=== PATIENT | male | born 1930 | race African-American/Black ===

== ENCOUNTER 2016-07-29 17:37 | Observation (INO) ==
[2016-07-29] MEDS ORDERED: Ondansetron 4 MG/2 ML VIAL IM ONE (17:52)
--- NOTE | 2016-07-29 18:03 | Emergency Department Note ---
Disposition Clinical Impression: Dehydration, Tachycardia, SIRS (systemic inflammatory response syndrome) Cholelithiasis Qualifiers: Cholelithiasis location: gallbladder Cholecystitis presence: with cholecystitis Cholecystitis acuity: acute Biliary obstruction: without biliary obstruction Qualified Code(s): K80.00 - Calculus of gallbladder with acute cholecystitis without obstruction Disposition: Admitted As Inpatient Condition: Good Referrals: NO,PCP [Non-Partnered Physician] - Forms: ED Satisfaction Letter Time of Disposition: 20:41 General Adult HPI - General Chief complaint: ED Nausea/Vomiting/Diarrhea Stated complaint: N/V Time Seen by Provider: 07/29/16 17:45 Source: patient, family Mode of arrival: EMS Limitations: no limitations Nursing Notes Reviewed: Yes Vital Signs Reviewed: Yes (99.7T P>130) - History of Present Illness HPI Narrative: 85 yo M presents with c/o nausea and vomiting. PMHx prostate cancer getting lupron injections every 3 months last injection was a few weeks ago, HTN, DM. Pt states that this morning he woke up with some heart burn sensation in his throat/chest area which lasted a few minutes and subsided. He had no other symptoms the rest of the day until about one-two hours ago. After easter dinner pt had a few minutes of cramping abdominal pain, got very nauseated and started vomiting. States he has been nauseated and vomiting nonstop since that time, nonbloody and nonbilious. CUrrently not having any abdominal pain but is very nauseous and actively vomiting. Pt denies change in stool or urinary habits, denies current Cp, sob, numbness/tingling. Pt Subjective Complaint: nausea and vomiting Onset (ago): hour(s) Location: abdomen Radiation: non-radiation Pain Severity: mild Pain Scale: 3 Quality: aching Consistency: now resolved Improves with: nothing Worsens with: nothing Associated symptoms: Reports: nausea/vomiting Treatments Prior to Arrival: none - Related Data Home Medications Medication Instructions Recorded Confirmed Aspirin 325 mg PO DAILY 11/25/14 05/31/16 Glimepiride [Amaryl] 4 mg PO BID 11/25/14 05/31/16 Irbesartan [Avapro] 300 mg PO DAILY 11/25/14 05/31/16 Metformin [Glucophage] 1,000 mg PO BID 11/25/14 05/31/16 Multivitamin [Multivitamins] 1 each PO DAILY 11/25/14 05/31/16 Omeprazole [PriLOSEC] 20 mg PO DAILY 11/25/14 05/31/16 Pioglitazone HCl [Actos] 45 mg PO DAILY 11/25/14 05/31/16 Vitamin E 400 unit PO DAILY 11/25/14 05/31/16 Verapamil ER (24 HR) [Calan SR] 240 mg PO DAILY 03/01/15 05/31/16 Tamsulosin [Flomax] 0.4 mg PO DAILY 02/29/16 05/31/16 Previous Rx's Medication Instructions Recorded Calcium/D3/Mag Ox/Explosive Ordnance Manager/Bhaskar/Zn 2 each PO DAILY #60 tablet 03/01/15 [Caltrate+D3 Plus Mineral Minis] Dutasteride [Avodart] 0.5 mg PO DAILY #30 capsule 03/29/16 HYDROcodone/Acet 5/325 mg [[place] 1 tab PO Q6H PRN #90 tab 05/31/16 5-325 mg] Allergies Allergy/AdvReac Type Severity Reaction Status Date / Time No Known Allergies Allergy Verified 11/25/14 11:20 All systems ED: reviewed and negative except as stated. Constitutional: Denies: fever, chills, weakness, weight change Eyes: Denies: eye pain, eye discharge, vision change ENT ED: Denies: ear pain, throat pain, dental pain, hearing loss, epistaxis, congestion, dysphagia Cardiovascular: Denies: chest pain, palpitations, dyspnea on exertion, edema, syncope Respiratory: Denies: cough, dyspnea, wheezes, hemoptysis, stridor Gastrointestinal: Reports: abdominal pain, nausea, vomiting. Denies: diarrhea, constipation, hematemesis, melena, hematochezia Genitourinary: Denies: urgency, dysuria, frequency, hematuria Musculoskeletal: Denies: back pain, neck pain, arthralgia, myalgia Integumentary: Denies: rash, abrasion, lesions Neurological: Denies: headache, weakness, numbness, paresthesias, confusion, abnormal gait, vertigo Psychiatric: Denies: anxiety, depression, suicidal thoughts, homicidal thoughts , auditory hallucinations, visual hallucinations Past Medical History - Past Medical History Attestation: Yes The following information was validated with the patient. Source: patient Medical history: Reports: arthritis, cancer (prostate), diabetes, hypertension, renal disease Surgical history: Reports: cancer surgery Psychiatric history: Reports: no psych history - Social History Smoking Status: Never smoker Smokeless Tobacco Status: No Alcohol use: Reports: none Drug use: Reports: none Physical Exam - General Limitations: no limitations General appearance: alert, in no apparent distress - Head Head exam: atraumatic, normocephalic, normal inspection - Eye Eye exam: Present: normal appearance, PERRL, EOMI - ENT ENT exam: normal exam, normal oropharynx, mucous membranes moist - Neck Neck exam: Present: normal inspection, full ROM, trachea midline - Chest Chest inspection: Present: normal inspection, symmetric chest wall rise - Respiratory Respiratory exam: Present: normal lung sounds bilaterally - Cardiovascular Cardiovascular exam: Present: regular rate, normal rhythm, normal heart sounds, +S1, +S2 - Abdominal Exam Abdominal exam: Present: soft, Non-Tender, normal bowel sounds, other (actively vomiting nonbilious nonbloody). Absent: distention, guarding, rebound - Rectal Exam Rectal exam: Present: deferred - Extremities Exam Extremities exam: Present: normal inspection, full ROM, pedal edema (trace). Absent: tenderness - Expanded Lower Extremity Exam Hip/Pelvis exam: Present: normal inspection, full ROM - Back Exam Back exam: Present: normal inspection, full ROM. Absent: tenderness - Neurological Exam Neurological exam: Present: alert, oriented X3, CN II-XII intact - Psychiatric Psychiatric exam: Present: normal affect, normal mood - Skin Skin exam: Present: warm, dry, intact, normal color Course Course Narrative: due to symptoms and medical history will initiate abdominal and cardiac work up. treat nausea acutely while looking for underlying etiology - Reevaluation(s) Reevaluation #1: 85-year-old with some abdominal pain and nausea vomiting after eating today. Workup included a CT scan that was concerning for acute cholecystitis with elevated liver functions. Time: 20:57 - Consultations Consultation #1: Discussed with Robbie EMANUEL, admitted to the hospital stay will see in consult. Time: 20:56 Consultation #2: Discussed with Dr. Murry, admit Time: 21:01 Vital Signs Temperature 99.7 F H 07/29/16 17:38 Pulse Rate 137 07/29/16 17:38 Respiratory Rate 18 07/29/16 17:38 Blood Pressure 149/77 07/29/16 17:38 O2 Sat by Pulse Oximetry 97 07/29/16 17:38 Temperature 99.7 F H 07/29/16 17:38 Pulse Rate 109 07/29/16 20:07 Respiratory Rate 20 07/29/16 19:45 Blood Pressure 106/81 07/29/16 20:07 O2 Sat by Pulse Oximetry 100 07/29/16 19:45 Oxygen Delivery Oxygen Delivery Room Air Medical Decision Making - MDM Narrative Medical decision making narrative: 99.7T P>130 EKG with tachycardia and RBBB laboratory work up and imaging with indication of cholelithiasis and gall bladder wall thickening 3,420cc IVF zosyn x1 given will need inpatient therapy and workup for sepsis and cholelithiasis surgery consulted - Medical Records Medical records reviewed: Yes I reviewed the patient's medical records. - Lab Data Lab results reviewed: Yes I reviewed the patient's lab results. Result diagrams: 07/29/16 19:23 07/29/16 19:23 Lab Results 07/29/16 07/29/16 07/29/16 Range/Units 19:23 19:23 19:23 WBC 6.5 (4.3-11.1) K/mcL RBC 3.69 L (4.19-5.50) M/mcL Hgb 10.7 L (12.9-16.9) g/dL Hct 33.3 L (37.5-50.1) % MCV 90.2 (83.0-100.0) fL MCH 29.0 (28.0-33.3) pg MCHC 32.1 (31.6-35.5) g/dL RDW 15.1 H (11.5-14.5) % Plt Count 163 (140-400) K/mcL MPV 10.8 (9.4-12.4) fL Immature Gran % 0.3 (0-4) % Seg Neutrophils % 90.0 % Lymphocytes % 3.8 % Monocytes % 5.7 % Eosinophils % 0.0 % Basophils % 0.2 % Neutrophils # 5.9 (1.6-8.9) K/mcL Lymphocytes # 0.3 L (0.6-4.6) K/mcL Monocytes # 0.4 (0.0-1.3) K/mcL Eosinophils # 0.0 (0.0-0.6) K/mcL Basophils # 0.0 (0.0-0.2) K/mcL Sodium 137 (136-145) mEq/L Potassium 4.5 (3.5-4.5) mEq/L Chloride 106 (98-109) mEq/L Carbon Dioxide 22 (19-29) mEq/L BUN 29 H (8-26) mg/dL Creatinine 1.33 H (0.72-1.25) mg/dL Est GFR ( Amer) > 60 (> 60) Est GFR (Non-Af Amer) 51 L (> 60) BUN/Creatinine Ratio 22 (6-26) Glucose 305 H (70-99) mg/dL Calculated Osmolality 301 H (280-300) Calcium 9.8 (8.6-10.8) mg/dL Total Bilirubin 1.7 H (0.2-1.2) mg/dL Direct Bilirubin 1.2 H (0.0-0.5) mg/dL Indirect Bilirubin 0.5 (0.0-1.2) mg/dL AST 1171 H (5-34) Units/L ALT 716 H (0-55) Units/L Alkaline Phosphatase 160 H (38-126) Units/L Troponin I 0.00 (0-0.03) ng/mL B-Natriuretic Peptide (0-100) pg/mL Serum Total Protein 6.7 (6.0-8.3) g/dL Albumin 3.1 L (3.5-5.0) g/dL Globulin 3.6 H (2.4-3.5) g/dL Albumin/Globulin Ratio 0.9 L (1.1-2.2) Amylase (25-125) Units/L Lipase (8-78) Units/L 07/29/16 07/29/16 Range/Units 19:23 19:23 WBC (4.3-11.1) K/mcL RBC (4.19-5.50) M/mcL Hgb (12.9-16.9) g/dL Hct (37.5-50.1) % MCV (83.0-100.0) fL MCH (28.0-33.3) pg MCHC (31.6-35.5) g/dL RDW (11.5-14.5) % Plt Count (140-400) K/mcL MPV (9.4-12.4) fL Immature Gran % (0-4) % Seg Neutrophils % % Lymphocytes % % Monocytes % % Eosinophils % % Basophils % % Neutrophils # (1.6-8.9) K/mcL Lymphocytes # (0.6-4.6) K/mcL Monocytes # (0.0-1.3) K/mcL Eosinophils # (0.0-0.6) K/mcL Basophils # (0.0-0.2) K/mcL Sodium (136-145) mEq/L Potassium (3.5-4.5) mEq/L Chloride (98-109) mEq/L Carbon Dioxide (19-29) mEq/L BUN (8-26) mg/dL Creatinine (0.72-1.25) mg/dL Est GFR ( Amer) (> 60) Est GFR (Non-Af Amer) (> 60) BUN/Creatinine Ratio (6-26) Glucose (70-99) mg/dL Calculated Osmolality (280-300) Calcium (8.6-10.8) mg/dL Total Bilirubin (0.2-1.2) mg/dL Direct Bilirubin (0.0-0.5) mg/dL Indirect Bilirubin (0.0-1.2) mg/dL AST (5-34) Units/L ALT (0-55) Units/L Alkaline Phosphatase (38-126) Units/L Troponin I (0-0.03) ng/mL B-Natriuretic Peptide 63 (0-100) pg/mL Serum Total Protein (6.0-8.3) g/dL Albumin (3.5-5.0) g/dL Globulin (2.4-3.5) g/dL Albumin/Globulin Ratio (1.1-2.2) Amylase 58 (25-125) Units/L Lipase 13 (8-78) Units/L - Radiology Data Radiology results reviewed: Yes I reviewed the patient's radiology results. - EKG Data EKG #1 EKG attestation: Yes I reviewed and interpreted this EKG. EKG shows normal: sinus rhythm Rate: tachycardia [place]/QRS: RBBB When compared to previous EKG there are: no significant changes Interpretation: no acute changes - Core Measures AMI Core Measures Followed: Yes Critical Care Time Critical Care Time: No Attestation Statement - Attestation Attestation: I examined this patient and my medical decision-making was reviewed with the STAFF ELECTRICAL ENGINEER/PA/Advanced Practice Nurse/Resident Physician. I agree with the documented findings, disposition and treatment plan as described except to the extent set forth below. I had [id number] time with the patient. This is a an 85-year-old comes in with initially some upper abdominal discomfort and nausea vomiting. But the discomfort resolved. He still felt nauseated and was tachycardic on arrival. Abdomen he does have some mild tenderness on palpation initially. Lab work shows elevation of his bilirubin 1.[address] of the abdomen shows gallbladder wall thickening with gallstones and some pericholecystic fluid consistent with cholecystitis. I discussed case with surgery.
[2016-07-29] MEDS: 0.9 % Sodium Chloride 1,000 ML IVC SCH ×2 (18:15→21:49)
[2016-07-29] MEDS ORDERED: Piperacillin/Tazobactam 3.375 GM in D5% in Water (Mini-Bag+) 100 ML IVPB ONE (19:03)
[2016-07-29 19:34] LABS: Basophils % 0.2 %; Hematocrit 33.3 % (37.5-50.1); Hemoglobin 10.7 g/dL (12.9-16.9); Immature Granulocytes % 0.3 % (0-4); Lymphocytes # 0.3 K/mcL (0.6-4.6); Lymphocytes % 3.8 %; Mean Corpuscular HGB Conc 32.1 g/dL (31.6-35.5); Mean Corpuscular Volume 90.2 fL (83.0-100.0); Mean Platelet Volume 10.8 fL (9.4-12.4); Monocytes # 0.4 K/mcL (0.0-1.3); Monocytes % 5.7 %; Neutrophils # 5.9 K/mcL (1.6-8.9); Platelet Count 163 K/mcL (140-400); Red Blood Count 3.69 M/mcL (4.19-5.50); Red Cell Distribution Width 15.1 % (11.5-14.5)
[2016-07-29 19:51] LABS: Alanine Aminotransferase 716 Units/L (0-55); Albumin 3.1 g/dL (3.5-5.0); Albumin/Globulin Ratio 0.9 (1.1-2.2); Alkaline Phosphatase 160 Units/L (38-126); Aspartate Amino Transferase 1171 Units/L (5-34); BUN/Creatinine Ratio 22 (6-26); Bilirubin,Direct 1.2 mg/dL (0.0-0.5); Bilirubin,Indirect 0.5 mg/dL (0.0-1.2); Bilirubin,Total 1.7 mg/dL (0.2-1.2); Blood Urea Nitrogen 29 mg/dL (8-26); Calcium 9.8 mg/dL (8.6-10.8); Carbon Dioxide 22 mEq/L (19-29); Chloride 106 mEq/L (98-109); Globulin 3.6 g/dL (2.4-3.5); Glucose 305 mg/dL (70-99); Osmolality,Calculated 301 (280-300); Potassium 4.5 mEq/L (3.5-4.5); Sodium 137 mEq/L (136-145); Total Protein 6.7 g/dL (6.0-8.3); eGFR For African Americans > 60 (> 60); eGFR For Non-African Americans 51 (> 60)
[2016-07-29 20:41] LABS: Amylase 58 Units/L (25-125); Lipase 13 Units/L (8-78)
[2016-07-29 21:12] LABS: Bilirubin,Urine Negative (Negative); Blood,Urine Negative (Negative); Color,Urine Yellow (Yellow); Glucose,Urine (UA) 500 mg/dL (Normal); Ketones,Urine Negative (Negative); Leukocyte Esterase,Urine Negative (Negative); Nitrite,Urine Negative (Negative); Protein,Urine 100 mg/dL (Neg-Trace); Specific Gravity,Urine 1.024 (1.010-1.025); Urobilinogen,Urine Normal (Normal)
[2016-07-29 21:13] LABS: Hyaline Casts,Urine None Seen per lpf (None-Few); RBC,Urine 0-3 per hpf (0-3); WBC,Urine 0-3 per hpf (0-3)
[2016-07-29 21:15] LABS: Clarity,Urine Slightly Hazy (Clear)
[2016-07-29 21:27] LABS: Bacteria,Urine Few per hpf (None-Few); Squamous Epithelial Cell,Urine Few per lpf (None-Few)
[2016-07-29] MEDS ORDERED: Ondansetron 4 MG/2 ML VIAL IVP PRN (22:06)
[2016-07-29] MEDS ORDERED: *HR* Morphine 2 MG/ML SYRINGE IVP PRN (22:06)
[2016-07-29] MEDS ORDERED: Acetaminophen 325 MG TABLET PO PRN (22:06)
[2016-07-29] MEDS ORDERED: Naloxone 0.4 MG/ML INJ IVP PRN (22:06)
--- NOTE | 2016-07-29 22:13 | Internal Med History&Physical ---
Date of Encounter: 07/29/16 Time of Encounter: 22:11 Assessment and Plan (1) Sepsis Current visit: Yes Status: Acute Possibly secondary to acute cholecystitis and cholelithiasis Start Rocephin and Flagyl IV Nothing by mouth after midnight, surgery consulted to consider cholecystectomy Continue IV fluids and morphine for pain The patient will be admitted as inpatient. Expected stay more than 2 minutes. Full code. Time spent on this admission 40 minutes. High risk due to sepsis. Protonix IV for GI prophylaxis and sequential compression devices for DVT prophylaxis Qualifiers: Sepsis type: sepsis due to unspecified organism Qualified Code(s): A41.9 - Sepsis, unspecified organism (2) Hepatitis Current visit: Yes Status: Acute Order hepatitis panel Repeat liver function tests (3) Cholelithiasis Current visit: Yes Status: Acute Qualifiers: Cholelithiasis location: gallbladder Cholecystitis presence: with cholecystitis Cholecystitis acuity: acute Biliary obstruction: without biliary obstruction Qualified Code(s): K80.00 - Calculus of gallbladder with acute cholecystitis without obstruction (4) Dehydration Current visit: Yes Status: Acute Continue IV fluids, hold irbersartan Continue verapamil (5) SIRS (systemic inflammatory response syndrome) Current visit: Yes Status: Acute (6) Prostate cancer Current visit: No Status: Chronic History of prostate cancer, metastatic (7) Colon cancer Current visit: No Status: Resolved Qualifiers: Colon location: unspecified part of colon Qualified Code(s): C18.9 - Malignant neoplasm of colon, unspecified (8) Diabetes Current visit: Yes Status: Acute Hold oral hypoglycemic agents Continue sliding scale Qualifiers: Diabetes mellitus type: type 2 Diabetes mellitus complication status: without complication Diabetes mellitus termination clerk insulin use: without senior living use Qualified Code(s): E11.9 - Type 2 diabetes mellitus without complications Internal Medicine - H&P: HPI Chief complaint: Vomiting Admitted From: Emergency Dept History of present illness: Mr. Dobbins is a 85 year old male with a past medical history of metastatic prostate cancer, hypertension, diabetes type 2 not insulin-dependent who came to the emergency room complaining of nonstop vomiting since 3 PM earlier today. He was brought by the EMS and has vomited about 6 times without any block. He was very dehydrated and was complaining of heartburn earlier today. Currently he is not complaining of any abdominal pain. A CT scan of the abdomen showed possible cholecystitis with cholelithiasis. Surgical services was contacted by the ER, Zosyn was started. The patient's heart rate was 137 and is down to the low 100s. His temperature was 99.7, creatinine of 1.33. He received Zofran and is feeling better at the moment. Bilirubin is 1.7, direct bilirubin 1.2 AST 1171 and ALT 716, no history of hepatitis Past Med Surg Social Fam HX - Past Medical History Medical history: arthritis (Osteoarthritis), cancer (prostate currently on Lupron metastatic), diabetes (Not insulin-dependent), hypertension, renal disease (CKD3), other (Depression, right bundle branch block, colon cancer post- colectomy, BPH, gout, GERD) Psychiatric history: no psych history - Past Surgical History Surgical History: appendectomy, cancer surgery (Colectomy) - Social History Smoking Status: Never smoker Smokeless Tobacco Status: No Alcohol use: none Drug use: none - Additional Family History Additional family history: Sister with Hodgkin's lymphoma Internal Medicine - H&P: Meds Aspirin 325 mg PO DAILY 11/25/14 [History] Glimepiride [Amaryl] 4 mg PO BID 11/25/14 [History] Irbesartan [Avapro] 300 mg PO DAILY 11/25/14 [History] Metformin [Glucophage] 1,000 mg PO BID 11/25/14 [History] Multivitamin [Multivitamins] 1 each PO DAILY 11/25/14 [History] Omeprazole [PriLOSEC] 20 mg PO DAILY 11/25/14 [History] Pioglitazone HCl [Actos] 45 mg PO DAILY 11/25/14 [History] Vitamin E 400 unit PO DAILY 11/25/14 [History] Calcium/D3/Mag Ox/Pump House Engineer/Bhaskar/Zn [Caltrate+D3 Plus Mineral Minis] 2 each PO DAILY # 60 tablet 03/01/15 [Rx] Verapamil ER (24 HR) [Calan SR] 240 mg PO DAILY 03/01/15 [History] Tamsulosin [Flomax] 0.4 mg PO DAILY 02/29/16 [History] Dutasteride [Avodart] 0.5 mg PO DAILY #30 capsule 03/29/16 [Rx] HYDROcodone/Acet 5/325 mg [[place] 5-325 mg] 1 tab PO Q6H PRN #90 tab 05/31/16 [Rx ] Allergies No Known Allergies Allergy (Verified 11/25/14 11:20) All Systems PM: A 10-system review of systems was performed and is negative for pertinent findings except as documented above in the HPI. Review of systems: Feels slightly nauseous, denies any abdominal pain at the moment. Other systems out all the 10 reviewed were negative - Constitutional Vitals: Temp Pulse Resp BP Pulse Ox 99.7 F H 109 20 106/81 100 07/29/16 17:38 07/29/16 20:07 07/29/16 19:45 07/29/16 20:07 07/29/16 19:45 General appearance: Present: A&O X 3 (Dry mucosa) - Head Head exam: Present: atraumatic, normocephalic - Eye Eye exam: Present: PERRL, conjuntiva pink, sclera anicteric Pupils: Present: PERRL - Neck Neck exam general surgery: Present: supple, trachea midline. Absent: lymphadenopathy - Respiratory Respiratory exam: Present: CTAB. Absent: accessory muscle use, rales, rhonchi, wheezes - Cardiovascular Cardiovascular exam: Present: RRR, +S1, +S2. Absent: diastolic murmur, gallop, rubs, systolic murmur - GI/Abdominal GI/Abdominal exam: Present: distended (Damon sign is negative), normal bowel sounds, soft, no peritoneal signs. Absent: tenderness - Extremities Exam Extremities exam: Present: warm, radial pulses palpable and symetrical. Absent : calf tenderness, cyanotic, pedal edema - Neurological Exam Neurological exam: Present: CN II-XII intact, oriented X3, no focal deficits. Absent: pronater drift, facial droop, speech deficit - Skin Skin exam: Present: dry, intact Internal Med - H&P Results - Labs CBC & Chem 7: 07/29/16 19:23 07/29/16 19:23
[2016-07-29] MEDS ORDERED: 0.9 % Sodium Chloride 1,000 ML IVC SCH (22:15)
[2016-07-29] MEDS ORDERED: Dextrose Gel 15 GM PO PRN ×2 (22:19)
[2016-07-29] MEDS ORDERED: *HR* Dextrose 50 % in Water (Syg) 50 ML SYRINGE IVP PRN (22:19)
[2016-07-29] MEDS ORDERED: D5% in Water 1,000 ML IVC PRN (22:19)
[2016-07-29 23:07] LABS: Hepatitis B Surface Antigen Nonreactive (Nonreactive)
[2016-07-29] MEDS: Pantoprazole 40 MG VIAL IVP SCH (23:20)
[2016-07-30] MEDS: MetroNIDAZOLE 500 MG/100 ML 500 MG/100 ML BAG IVPB SCH ×3 (00:06→18:16)
[2016-07-30] MEDS: Insulin LISPRO 300 UNITS/3 ML VIAL SQ SCH ×4 (00:07→21:43)
[2016-07-30 04:58] LABS: Basophils % 0.1 %; Eosinophils % 0.1 %; Hemoglobin 10.4 g/dL (12.9-16.9); Immature Granulocytes % 0.3 % (0-4); Lymphocytes # 0.5 K/mcL (0.6-4.6); Lymphocytes % 6.8 %; Mean Corpuscular HGB Conc 31.5 g/dL (31.6-35.5); Mean Corpuscular Hemoglobin 29.2 pg (28.0-33.3); Mean Corpuscular Volume 92.7 fL (83.0-100.0); Mean Platelet Volume 11.2 fL (9.4-12.4); Monocytes # 0.4 K/mcL (0.0-1.3); Platelet Count 173 K/mcL (140-400); Red Blood Count 3.56 M/mcL (4.19-5.50); Red Cell Distribution Width 15.5 % (11.5-14.5); Segmented Neutrophils % 86.7 %
[2016-07-30 05:02] LABS: INR 1.2; Prothrombin Time 13.5 Seconds (9.4-12.1)
[2016-07-30 05:17] LABS: Alanine Aminotransferase 739 Units/L (0-55); Albumin 2.9 g/dL (3.5-5.0); Albumin/Globulin Ratio 0.8 (1.1-2.2); Alkaline Phosphatase 161 Units/L (38-126); Aspartate Amino Transferase 797 Units/L (5-34); BUN/Creatinine Ratio 18 (6-26); Bilirubin,Total 1.5 mg/dL (0.2-1.2); Blood Urea Nitrogen 24 mg/dL (8-26); Calcium 9.4 mg/dL (8.6-10.8); Carbon Dioxide 24 mEq/L (19-29); Chloride 108 mEq/L (98-109); Globulin 3.8 g/dL (2.4-3.5); Glucose 169 mg/dL (70-99); Osmolality,Calculated 296 (280-300); Potassium 4.3 mEq/L (3.5-4.5); Sodium 139 mEq/L (136-145); Total Protein 6.7 g/dL (6.0-8.3); eGFR For African Americans > 60 (> 60); eGFR For Non-African Americans 50 (> 60)
[2016-07-30] MEDS ORDERED: 0.9 % Sodium Chloride 1,000 ML IVC SCH (08:30)
[2016-07-30 09:25] LABS: Magnesium 1.8 mg/dL (1.6-2.6)
[2016-07-30 09:26] LABS: Acetaminophen < 1.0 mcg/mL (10-30); Salicylate < 5.0 mg/dL (15-30)
[2016-07-30 09:52] LABS: Gamma Glutamyl Transpeptidase 257 Units/L (12-64)
[2016-07-30 10:26] LABS: Hepatitis A Antibody IgM Nonreactive (Nonreactive); Hepatitis B Core IgM Nonreactive (Nonreactive)
[2016-07-30] MEDS: Verapamil ER (24 HR) 240 MG TABLET.ER PO SCH (10:28)
[2016-07-30 11:47] LABS: Hepatitis C Virus Antibody Nonreactive (Nonreactive)
[2016-07-30] MEDS: Pantoprazole 40 MG VIAL IVP SCH (12:01)
--- NOTE | 2016-07-30 12:41 | Internal Med Progress Note ---
Date of Encounter: 07/30/16 Time of Encounter: 10:30 - Assessment and plan (1) Acute cholecystitis due to biliary calculus Current Visit: Yes Status: Acute Assessment and plan: CT abdomen/pelvis showed cholelithiasis with significant thickening of the gallbladder wall and pericholecystic fluid, likely acute cholecystitis. Ultrasound of the abdomen showed calculus cholecystitis. negative lactic acid and UA. Appreciate surgery input. MRCP ordered. Blood cultures pending. Continue IV Ceftriaxone and IV Flagyl, IV fluids. clear liquids. (2) Elevated LFTs Current Visit: Yes Status: Acute Assessment and plan: On admission, AST 1171, ALT was 716, alk phos 160, bili 1.5. negative hepatitis panel and salycilate/acetaminophen levels. Patient denies any alcohol use. no new medication. takes only 2 pills of vicodin daily. Us abdomen showed normal size CBD. holding home dose casodex. MRCP ordered. serial LFTs. Liver test are slowly trending down (AST 797, ALt 739). continue supportive therapy with IV fluids. (3) Diabetes Current Visit: Yes Status: Acute Assessment and plan: DM with hyperglycemia. Glucose on admission was 305. continue IV fluids. sliding scale insulin. full liquid diabetic diet. Qualifiers: Diabetes mellitus type: type 2 Diabetes mellitus complication status: without complication Diabetes mellitus termite technician insulin use: without [facility] use Qualified Code(s): E11.9 - Type 2 diabetes mellitus without complications (4) HTN (hypertension) Current Visit: Yes Status: Acute Assessment and plan: continue verapamil. holding home dose of ibesartan due to elevated Cr. Qualifiers: Hypertension type: essential hypertension Qualified Code(s): I10 - Essential (primary) hypertension (5) Prostate cancer Current Visit: No Status: Chronic Assessment and plan: T1 N0 M0 disease. Due to persistently elevated PSA, he was started on Casodex 04/10/16. currently, taking casodex and lupron. proscar, flomax. - Subjective Interval history: patient denies any abdominal pain, no nausea, no vomiting. he is NPO - Constitutional Vitals: Temp Pulse Resp BP Pulse Ox 98.8 F 85 16 164/84 95 07/30/16 10:26 07/30/16 10:26 07/30/16 10:26 07/30/16 10:26 07/30/16 10:26 General appearance: Present: cooperative, A&O X 3 (Dry mucosa), pleasant, no acute distress, answers questions appropriately - Respiratory Respiratory exam: Present: CTAB - Cardiovascular Cardiovascular exam: Present: RRR - GI/Abdominal GI/Abdominal exam: Present: normal bowel sounds, soft. Absent: distended, tenderness - Extremities Exam Extremities exam: Absent: pedal edema - Back Exam Back exam: Absent: CVA tenderness (L), CVA tenderness (R) - Neurological Exam Neurological exam: Present: alert, oriented X3, no focal deficits, strengths equal and symetr throughout. Absent: facial droop, speech deficit - Skin Skin exam: Absent: rash Internal Medicine: Result - Labs CBC & Chem 7: 07/30/16 04:45 07/30/16 04:45 Labs: Short CBC 07/30/16 Range/Units 04:45 WBC 6.9 (4.3-11.1) K/mcL Hgb 10.4 L (12.9-16.9) g/dL Hct 33.0 L (37.5-50.1) % Plt Count 173 (140-400) K/mcL Neutrophils # 6.0 (1.6-8.9) K/mcL BMP 07/30/16 04:45 Sodium 139 Potassium 4.3 Chloride 108 Carbon Dioxide 24 BUN 24 Creatinine 1.36 H Glucose 169 H Calcium 9.4 Liver Function 07/30/16 07/30/16 Range/Units 04:45 09:01 Total Bilirubin 1.5 H (0.2-1.2) mg/dL GGT 257 H (12-64) Units/L AST 797 H (5-34) Units/L ALT 739 H (0-55) Units/L Alkaline Phosphatase 161 H (38-126) Units/L Albumin 2.9 L (3.5-5.0) g/dL - ABG Interpretation ABG results: PT/INR, D-dimer PT 13.5 Seconds (9.4-12.1) H 07/30/16 04:45 - Impressions Impressions Abdomen Ultrasound 07/30/16 09:00 IMPRESSION: Calculus cholecystitis D/ / Maroi Zavala MD / Mario Zavala MD Interpreting Provider: Mario Zavala MD - VTE Documentation of Mechanical Device: Intermittent pneumatic compression device Consult Discharge Plan - Plan Referrals: Flaquito Cm DO [Primary Care Provider] -
[2016-07-30] MEDS: Finasteride 5 MG TABLET PO SCH ×2 (12:57→14:03)
--- NOTE | 2016-07-30 13:37 | General Surgery Consult Note ---
Date of Encounter: 07/30/16 Time of Encounter: 13:00 Assessment and Plan (1) Acute cholecystitis due to biliary calculus Current Visit: Yes Status: Acute MRCP today to r/o choledocholithiasis Mildly elevated bilirubin at 1.5 CT scan and US reviewed Clear liquids today NPO after midnight IV fluids IV antibiotics- ceftriaxone and flagyl Supportive care/pain control (2) Elevated LFTs Current Visit: Yes Status: Acute MRCP today Hepatic panel in the am Hepatitis panel negative (3) Prostate cancer Current Visit: No Status: Chronic Followed per [facility] (4) Colon cancer Current Visit: No Status: Resolved s/p colon resection Last colonoscopy 3 years ago- 2 benign polyps Qualifiers: Colon location: unspecified part of colon Qualified Code(s): C18.9 - Malignant neoplasm of colon, unspecified (5) DVT prophylaxis Current Visit: Yes Status: Acute Add heparin 5,000 units SQ twice daily for DVT prophylaxis History of Present Illness Consult date: 07/30/16 Reason for consult: other (Cholecystitis) Requesting physician: Jose Roberto Toro History of present illness: Mr. Dobbins is a very pleasant 85 year old male with multiple comorbidities including metastatic prostate cancer and a history of colon cancer. He presented to the ED last evening with complaints of a 24 hours history of stomach feeling upset and mild abdominal discomfort. He states that he took Pepto Bismol yesterday prior to eating at [employer] due to feeling of indigestion. He reports mild RUQ discomfort. He states that he began vomiting after eating at [employer]. He reports multiple episodes of vomiting without hematemesis of coffee ground emesis. He denies any abdominal pain today. He denies any diarrhea. Admits to chronic issues with constipation due to his pain medications. Controlled with stool softners and prunes. He has a bowel movement daily with these interventions. Denies any melena or hematochezia. Denies any difficulty with urination or any changes in the color of his urine. Denies any shortness of breath or chest pains. We have been asked to see and evaluate the patient for cholecystitis. 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; T&A; colonoscopy ( last 3 years ago); prostate biopsy) - Social History Smoking Status: Never smoker Smokeless Tobacco Status: No Alcohol use: none Drug use: none Occupational status: retired Current living situation: Home - Independent Activity Level: Independent ambulation Medications and Allergies Aspirin 325 mg PO DAILY 11/25/14 [History] Glimepiride [Amaryl] 4 mg PO BID 11/25/14 [History] Irbesartan [Avapro] 300 mg PO DAILY 11/25/14 [History] Metformin [Glucophage] 1,000 mg PO BID 11/25/14 [History] Multivitamin [Multivitamins] 1 tab PO DAILY 11/25/14 [History] Omeprazole [PriLOSEC] 20 mg PO DAILY 11/25/14 [History] Pioglitazone HCl [Actos] 45 mg PO DAILY 11/25/14 [History] Vitamin E 400 unit PO DAILY 11/25/14 [History] Verapamil ER (24 HR) [Calan SR] 240 mg PO DAILY 03/01/15 [History] Tamsulosin [Flomax] 0.4 mg PO DAILY 02/29/16 [History] Dutasteride [Avodart] 0.5 mg PO DAILY #30 capsule 03/29/16 [Rx] HYDROcodone/Acet 5/325 mg [Athelstane 5-325 mg] 1 tab PO Q6H PRN #90 tab 05/31/16 [Rx ] Bicalutamide [Casodex] 50 mg PO DAILY 07/30/16 [History] Calcium/D3/Mag Ox/Picker/Puller/Bhaskar/Zn [Caltrate+D3 Plus Mineral Minis] 1 tab PO BID [History] Venlafaxine [Effexor] 37.5 mg PO DAILY 07/30/16 [History] Allergies No Known Allergies Allergy (Verified 11/25/14 11:20) Review of Systems All systems PM: reviewed and no additional remarkable complaints except as stated (in the HPI) All systems PM: A 10-system review of systems was performed and is negative for pertinent findings except as documented above in the HPI. General Surgery Exam Initial Vital Signs Temp Pulse Resp BP Pulse Ox 99.7 F H 137 18 149/77 97 07/29/16 17:38 07/29/16 17:38 07/29/16 17:38 07/29/16 17:38 07/29/16 17:38 - General physical appearance well developed, well nourished, no distress - Eyes PERRL, normal ocular movement - ENT normal mucosa, atraumatic, normocephalic - Neck trachea midline - Respiratory normal respiratory effort, clear to auscultation - Cardiovascular Cardiovascular exam: Present: RRR - Abdomen Abdomen general surgery: Present: bowel sounds present, soft, non tender - Integumentary Integumentary general surgery: Present: warm and dry - Neurologic Present: CN 2-12 grossly intact - Psychiatric Psychiatric general surgery: Present: appropriate, oriented to person, oriented to place, oriented to time, speech is normal, memory intact Exam Initial Vital Signs Temp Pulse Resp BP Pulse Ox 99.7 F H 137 18 149/77 97 07/29/16 17:38 07/29/16 17:38 07/29/16 17:38 07/29/16 17:38 07/29/16 17:38 Results - Labs 07/30/16 04:45 07/30/16 04:45 Abnormal lab results RBC 3.56 M/mcL (4.19-5.50) L 07/30/16 04:45 Hgb 10.4 g/dL (12.9-16.9) L 07/30/16 04:45 Hct 33.0 % (37.5-50.1) L 07/30/16 04:45 MCHC 31.5 g/dL (31.6-35.5) L 07/30/16 04:45 RDW 15.5 % (11.5-14.5) H 07/30/16 04:45 Lymphocytes # 0.5 K/mcL (0.6-4.6) L 07/30/16 04:45 PT 13.5 Seconds (9.4-12.1) H 07/30/16 04:45 Creatinine 1.36 mg/dL (0.72-1.25) H 07/30/16 04:45 Est GFR (Non-Af Amer) 50 (> 60) L 07/30/16 04:45 Glucose 169 mg/dL (70-99) H 07/30/16 04:45 Total Bilirubin 1.5 mg/dL (0.2-1.2) H 07/30/16 04:45 Direct Bilirubin 1.2 mg/dL (0.0-0.5) H 07/29/16 19:23 GGT 257 Units/L (12-64) H 07/30/16 09:01 AST 797 Units/L (5-34) H 07/30/16 04:45 ALT 739 Units/L (0-55) H 07/30/16 04:45 Alkaline Phosphatase 161 Units/L (38-126) H 07/30/16 04:45 Albumin 2.9 g/dL (3.5-5.0) L 07/30/16 04:45 Globulin 3.8 g/dL (2.4-3.5) H 07/30/16 04:45 Albumin/Globulin Ratio 0.8 (1.1-2.2) L 07/30/16 04:45 Urine Protein 100 mg/dL (Neg-Trace) H 07/29/16 21:02 Urine Glucose (UA) 500 mg/dL (Normal) H 07/29/16 21:02 Salicylates < 5.0 mg/dL (15-30) L 07/30/16 09:01 Acetaminophen < 1.0 mcg/mL (10-30) L 07/30/16 09:01 Diabetes panel 07/30/16 Range/Units 04:45 Sodium 139 (136-145) mEq/L Potassium 4.3 (3.5-4.5) mEq/L Chloride 108 (98-109) mEq/L Carbon Dioxide 24 (19-29) mEq/L BUN 24 (8-26) mg/dL Creatinine 1.36 H (0.72-1.25) mg/dL Glucose 169 H (70-99) mg/dL Calcium 9.4 (8.6-10.8) mg/dL AST 797 H (5-34) Units/L ALT 739 H (0-55) Units/L Alkaline Phosphatase 161 H (38-126) Units/L Albumin 2.9 L (3.5-5.0) g/dL Calcium panel 07/30/16 Range/Units 04:45 Calcium 9.4 (8.6-10.8) mg/dL Albumin 2.9 L (3.5-5.0) g/dL Pituitary panel 07/30/16 Range/Units 04:45 Sodium 139 (136-145) mEq/L Potassium 4.3 (3.5-4.5) mEq/L Chloride 108 (98-109) mEq/L Carbon Dioxide 24 (19-29) mEq/L BUN 24 (8-26) mg/dL Creatinine 1.36 H (0.72-1.25) mg/dL Glucose 169 H (70-99) mg/dL Calcium 9.4 (8.6-10.8) mg/dL Adrenal panel 07/30/16 Range/Units 04:45 Sodium 139 (136-145) mEq/L Potassium 4.3 (3.5-4.5) mEq/L Chloride 108 (98-109) mEq/L Carbon Dioxide 24 (19-29) mEq/L BUN 24 (8-26) mg/dL Creatinine 1.36 H (0.72-1.25) mg/dL Glucose 169 H (70-99) mg/dL Calcium 9.4 (8.6-10.8) mg/dL Total Bilirubin 1.5 H (0.2-1.2) mg/dL AST 797 H (5-34) Units/L ALT 739 H (0-55) Units/L Alkaline Phosphatase 161 H (38-126) Units/L Albumin 2.9 L (3.5-5.0) g/dL All other labs normal. - Imaging CT scan - abdomen: report reviewed CT scan - pelvis: report reviewed US - abdomen: report reviewed Additional studies: Abdomen/Pelvis CT 07/29/16 17:59 IMPRESSION: Cholelithiasis as well as significant thickening of the gallbladder wall and pericholecystic fluid. Acute cholecystitis is likely. D/ / 07/29/2016 18:52:05 Marlen Rutledge MD / [facility] Interpreting Provider: Marlen Rutledge MD Abdomen Ultrasound 07/30/16 09:00 IMPRESSION: Calculus cholecystitis D/ / Mario Zavala MD / Mario Zavala MD Interpreting Provider: Mario Zavala MD Consult Discharge Plan - Plan Referrals: Flaquito Cm DO [Primary Care Provider] - - Attending Attestation I examined this patient and my medical decision-making was reviewed with the BIODIESEL PRODUCTION TECHNICIAN/PA/Advanced Practice Nurse/Resident Physician. I agree with the documented findings, disposition and treatment plan as described except to the extent set forth below.
[2016-07-30] MEDS: 0.9 % Sodium Chloride 1,000 ML IVC SCH ×2 (13:41→18:17)
[2016-07-30] MEDS ORDERED: *HR* Dextrose 50 % in Water (Syg) 50 ML SYRINGE IVP PRN (18:01)
[2016-07-30] MEDS ORDERED: Dextrose Gel 15 GM PO PRN ×2 (18:01)
[2016-07-30] MEDS ORDERED: D5% in Water 1,000 ML IVC PRN (18:01)
[2016-07-31] MEDS: MetroNIDAZOLE 500 MG/100 ML 500 MG/100 ML BAG IVPB SCH ×4 (00:01→23:19)
[2016-07-31 06:02] LABS: Basophils % 0.3 %; Eosinophils # 0.1 K/mcL (0.0-0.6); Eosinophils % 2.8 %; Hematocrit 28.5 % (37.5-50.1); Hemoglobin 9.1 g/dL (12.9-16.9); Immature Granulocytes % 0.5 % (0-4); Lymphocytes # 0.5 K/mcL (0.6-4.6); Lymphocytes % 11.5 %; Mean Corpuscular HGB Conc 31.9 g/dL (31.6-35.5); Mean Corpuscular Volume 90.8 fL (83.0-100.0); Mean Platelet Volume 10.9 fL (9.4-12.4); Monocytes # 0.4 K/mcL (0.0-1.3); Monocytes % 10.2 %; Neutrophils # 2.9 K/mcL (1.6-8.9); Platelet Count 139 K/mcL (140-400); Red Blood Count 3.14 M/mcL (4.19-5.50); Red Cell Distribution Width 15.5 % (11.5-14.5); Segmented Neutrophils % 74.7 %
[2016-07-31 06:27] LABS: Alanine Aminotransferase 379 Units/L (0-55); Albumin 2.6 g/dL (3.5-5.0); Albumin/Globulin Ratio 0.8 (1.1-2.2); Alkaline Phosphatase 127 Units/L (38-126); Aspartate Amino Transferase 207 Units/L (5-34); BUN/Creatinine Ratio 14 (6-26); Bilirubin,Direct 0.4 mg/dL (0.0-0.5); Bilirubin,Indirect 0.3 mg/dL (0.0-1.2); Bilirubin,Total 0.7 mg/dL (0.2-1.2); Blood Urea Nitrogen 14 mg/dL (8-26); Calcium 8.9 mg/dL (8.6-10.8); Carbon Dioxide 23 mEq/L (19-29); Chloride 108 mEq/L (98-109); Globulin 3.4 g/dL (2.4-3.5); Glucose 133 mg/dL (70-99); Magnesium 1.7 mg/dL (1.6-2.6); Osmolality,Calculated 284 (280-300); Phosphorous 1.7 mg/dL (2.3-4.7); Potassium 3.8 mEq/L (3.5-4.5); Sodium 136 mEq/L (136-145); eGFR For African Americans > 60 (> 60); eGFR For Non-African Americans > 60 (> 60)
--- NOTE | 2016-07-31 06:33 | Electrocardiograph Report ---
[address] [address] Test Date: 2016-07-29 Pat Name: Adan Dobbins Department: 105 Room: 3A22 Gender: M Personal Computer Network Engineer: : [id number] Requested By: Corina Enamorado Order Number: [id number] Reading MD: Mark Flood MD Measurements Intervals [place] Rate: 128 P: -44 [place]: 194 QRS: -56 QRSD: 146 T: 8 QT: 311 QTc: 387 Interpretive Statements SINUS TACHYCARDIA RIGHT BUNDLE BRANCH BLOCK LEFT ANTERIOR FASCICULAR BLOCK Electronically Signed On 07-31-2016 6:31:39 EDT by Mark Flood MD
[2016-07-31 06:34] LABS: Platelet Estimate Normal (Normal); Reactive Lymphocytes Present (Not Present); Toxic Granulation Present (Not Present)
[2016-07-31] MEDS: 0.9 % Sodium Chloride 1,000 ML IVC SCH ×2 (07:00→23:20)
[2016-07-31] MEDS: Insulin LISPRO 300 UNITS/3 ML VIAL SQ SCH ×4 (07:45→22:05)
[2016-07-31] MEDS: Pantoprazole 40 MG VIAL IVP SCH (07:45)
[2016-07-31] MEDS: Finasteride 5 MG TABLET PO SCH (07:46)
[2016-07-31] MEDS: Verapamil ER (24 HR) 240 MG TABLET.ER PO SCH (07:46)
--- NOTE | 2016-07-31 08:39 | Internal Med Progress Note ---
<Dhruv Desouza - Last Filed: 07/31/16 10:22> Date of Encounter: 07/31/16 Time of Encounter: 08:38 - Assessment and plan (1) Acute cholecystitis due to biliary calculus Current Visit: Yes Status: Acute Assessment and plan: Patient presented with nausea, vomiting, abdominal discomfort found to have a AST of 1171 ALT of 716, alkaline phosphatase 160. GGT 257, abdominal CT, MRI and right upper quadrant ultrasound demonstrated acute cholecystitis with a distended gallbladder and multiple gallstones. No definitive bile duct dilation or bile duct obstruction. - MRCP has been ordered per general surgery - Patient is asymptomatic today - Liver enzymes improving Plan: - Per general surgery planned for cholecystectomy tomorrow. -Nothing by mouth after midnight (2) Prostate cancer Current Visit: No Status: Chronic Assessment and plan: T1 N0 M0 disease. Due to persistently elevated PSA, he was started on Casodex 04/10/16. currently, taking casodex and lupron. proscar, flomax. Patient asymptomatic today. (3) Diabetes Current Visit: Yes Status: Acute Assessment and plan: DM with hyperglycemia upon admission. Current glucose 133 Plan: continue IV fluids. sliding scale insulin. full liquid diabetic diet. - achs glucose checks. (4) Elevated LFTs Current Visit: Yes Status: Acute Assessment and plan: Improving. Likely secondary to choledocholithiasis. - Patient tolerating liquid diet Plan: - Cholecystectomy to resolve underlining cause. (5) HTN (hypertension) Current Visit: Yes Status: Acute Assessment and plan: Blood pressure stable with current BP 138/65. Patient continued on verapamil 240 mg by mouth daily. Plan: - Continue monitoring blood pressures - Continue verapamil - Hydralazine 5 mg IV push every 6 hours with systolic blood pressure greater than 160. - Subjective Interval history: Mr. Parker 85-year-old male is seen evaluated a patient bedside this morning. He is awake alert interactive in no acute distress. He denies any pains, nausea vomiting diarrhea constipation abdominal pain or discomforts. He has tolerated liquid diet without any recurrence of his right upper quadrant pain or nausea. He said he feels back to baseline. He has no concerns at this time. - Constitutional Vitals: Temp Pulse Resp BP Pulse Ox 97.5 F L 78 16 169/75 98 07/31/16 07:00 07/31/16 07:00 07/31/16 07:00 07/31/16 07:00 07/31/16 07:00 General appearance: Present: cooperative, A&O X 3 (Dry mucosa), pleasant, no acute distress, answers questions appropriately - Head Head exam: Present: atraumatic, normocephalic - Eye Eye exam: Present: PERRL, conjuntiva pink, sclera anicteric Pupils: Present: PERRL - ENT ENT exam: Present: mucous membranes moist - Neck Neck exam general surgery: Present: supple, trachea midline. Absent: lymphadenopathy - Respiratory Respiratory exam: Present: CTAB. Absent: accessory muscle use, rales, rhonchi, wheezes - Cardiovascular Cardiovascular exam: Present: RRR, +S1, +S2. Absent: diastolic murmur, gallop, rubs, systolic murmur - GI/Abdominal GI/Abdominal exam: Present: normal bowel sounds, soft, no peritoneal signs. Absent: distended, tenderness - Extremities Exam Extremities exam: Present: warm, radial pulses palpable and symetrical. Absent : calf tenderness, cyanotic, pedal edema - Neurological Exam Neurological exam: Present: alert, CN II-XII intact, oriented X3, no focal deficits. Absent: pronater drift, facial droop, speech deficit - Psychiatric Psychiatric exam: Present: normal affect, normal mood Internal Medicine: Result - Labs CBC & Chem 7: 07/31/16 05:20 07/31/16 05:20 Labs: Short CBC 07/31/16 Range/Units 05:20 WBC 3.9 L (4.3-11.1) K/mcL Hgb 9.1 L (12.9-16.9) g/dL Hct 28.5 L (37.5-50.1) % Plt Count 139 L (140-400) K/mcL Neutrophils # 2.9 (1.6-8.9) K/mcL BMP 07/31/16 05:20 Sodium 136 Potassium 3.8 Chloride 108 Carbon Dioxide 23 BUN 14 D Creatinine 1.03 Glucose 133 H Calcium 8.9 Liver Function 07/30/16 07/31/16 Range/Units 09:01 05:20 Total Bilirubin 0.7 (0.2-1.2) mg/dL Direct Bilirubin 0.4 (0.0-0.5) mg/dL GGT 257 H (12-64) Units/L AST 207 H (5-34) Units/L ALT 379 H (0-55) Units/L Alkaline Phosphatase 127 H (38-126) Units/L Albumin 2.6 L (3.5-5.0) g/dL - ABG Interpretation ABG results: PT/INR, D-dimer PT 13.5 Seconds (9.4-12.1) H 07/30/16 04:45 - Impressions Impressions Abdomen Ultrasound 07/30/16 09:00 IMPRESSION: Calculus cholecystitis D/ / Mario Zavala MD / Mario Zavala MD Interpreting Provider: Mario Zavala MD Abdomen MRI 07/30/16 13:24 IMPRESSION: 1. MRI findings concerning for acute cholecystitis with a distended gallbladder, wall thickening, and innumerable gallstones. 2. No intra or extrahepatic biliary dilatation. No choledocholithiasis. 3. Small sliding-type hiatal hernia. 4. Diverticulosis. D/ / 07/30/2016 17:42:05 La Nena Jacome MD / [facility] Interpreting Provider: La Nena Jacome MD - VTE Documentation of Mechanical Device: Intermittent pneumatic compression device Consult Discharge Plan - Plan Referrals: Flaquito Cm DO [Primary Care Provider] - <Ml Matamoros - Last Filed: 07/31/16 18:35> Date of Encounter: 07/31/16 - Assessment and plan (1) Acute cholecystitis due to biliary calculus Current Visit: Yes Status: Acute (2) Elevated LFTs Current Visit: Yes Status: Acute (3) Diabetes Current Visit: Yes Status: Acute Qualifiers: Diabetes mellitus type: type 2 Diabetes mellitus complication status: without complication Diabetes mellitus intermediate teacher insulin use: without intermediate use Qualified Code(s): E11.9 - Type 2 diabetes mellitus without complications (4) HTN (hypertension) Current Visit: Yes Status: Acute Qualifiers: Hypertension type: essential hypertension Qualified Code(s): I10 - Essential (primary) hypertension (5) Prostate cancer Current Visit: No Status: Chronic - Constitutional Vitals: Temp Pulse Resp BP Pulse Ox 98.9 F 76 18 135/74 97 07/31/16 15:05 07/31/16 15:05 07/31/16 15:05 07/31/16 15:05 07/31/16 15:05 Internal Medicine: Result - Labs CBC & Chem 7: 07/31/16 05:20 07/31/16 05:20 Labs: Short CBC 07/31/16 Range/Units 05:20 WBC 3.9 L (4.3-11.1) K/mcL Hgb 9.1 L (12.9-16.9) g/dL Hct 28.5 L (37.5-50.1) % Plt Count 139 L (140-400) K/mcL Neutrophils # 2.9 (1.6-8.9) K/mcL BMP 07/31/16 05:20 Sodium 136 Potassium 3.8 Chloride 108 Carbon Dioxide 23 BUN 14 D Creatinine 1.03 Glucose 133 H Calcium 8.9 Liver Function 07/31/16 Range/Units 05:20 Total Bilirubin 0.7 (0.2-1.2) mg/dL Direct Bilirubin 0.4 (0.0-0.5) mg/dL AST 207 H (5-34) Units/L ALT 379 H (0-55) Units/L Alkaline Phosphatase 127 H (38-126) Units/L Albumin 2.6 L (3.5-5.0) g/dL - ABG Interpretation ABG results: PT/INR, D-dimer PT 13.5 Seconds (9.4-12.1) H 07/30/16 04:45 - Attending Attestation I examined this patient and reviewed laboratory, imaging and all diagnostic data. My medical decision-making was reviewed with Dr Desouza - Resident Physician. I agree with the documented findings, disposition and treatment plan as described above Addendum to Diagnosis: 1. Sepsis. secondary to acute cholecystitis.
[2016-07-31 09:00] LABS: Amphetamine Screen,Urine Negative ng/mL (Cutoff=1000); Barbiturate Screen,Urine Negative ng/mL (Cutoff=200); Benzodiazepines Screen,Urine Negative ng/mL (Cutoff=200); Cannabinoid Screen,Urine Negative ng/mL (Cutoff = 50); Cocaine Screen,Urine Negative ng/mL (Cutoff= 300); Opiate Screen,Urine Negative ng/mL (Cutoff=300); Phencyclidine Screen,Urine Negative ng/mL (Cutoff=25)
--- NOTE | 2016-07-31 10:14 | General Surgery Progress Note ---
Date of Encounter: 07/31/16 Time of Encounter: 10:00 - Assessment and Plan (1) Acute cholecystitis due to biliary calculus Current Visit: Yes Status: Acute MRCP shows acute cholecystits, no choledocholithiasis CT scan, US and MRI reviewed Clear liquids today NPO after midnight IV fluids IV antibiotics- ceftriaxone and flagyl Supportive care/pain control Discussed the risks, benefits, alternatives and expected outcomes with the patient and will proceed with cholecystectomy in the next 24-48 hours. (2) Elevated LFTs Current Visit: Yes Status: Acute Improving Hepatitis panel negative (3) Prostate cancer Current Visit: No Status: Chronic Followed per [facility] (4) Colon cancer Current Visit: No Status: Resolved s/p colon resection Last colonoscopy 3 years ago- 2 benign polyps Qualifiers: Colon location: unspecified part of colon Qualified Code(s): C18.9 - Malignant neoplasm of colon, unspecified (5) DVT prophylaxis Current Visit: Yes Status: Acute Continue heparin 5,000 units SQ twice daily for DVT prophylaxis Subjective Patient reports: no new complaints, feels better, tolerating liquids well (full liquids), flatus, fever (Tmax 100.4 at 7am yesterday) Objective Vital Signs - Last 8 Hours Temp Pulse Resp BP Pulse Ox 07/31/16 07:00 97.5 F L 78 16 169/75 98 07/31/16 06:56 98 07/31/16 03:19 98.5 F 80 18 152/82 98 Intake and Output 07/30/16 07/31/16 07/31/16 23:59 07:59 15:59 Intake Total 957 / 957 823 / 823 100 / 100 Output Total 0 / 0 400 / 400 220 / 220 Balance 957 / 957 423 / 423 -120 / -120 Intake: IV Fluids 477 / 477 823 / 823 100 / 100 0.9 % Sodium Chloride 1, 277 / 277 723 / 723 000 ML @ 75 mls/hr IVC . [id number] [facility] Rx#: [id number] Rocephin 1,000 MG In 100 / 100 Dextrose 5% (Minibag+) 100 ML 100 ML @ 200 mls/ hr IVPB Q24H [facility] Rx#: [id number] Flagyl 500 MG/100 ML 500 100 / 100 100 / 100 100 / 100 mg In 100 ml @ 100 mls/hr IVPB Q8HR [facility] Rx#: [id number] Oral 480 / 480 0 / 0 Output: Urine 0 / 0 400 / 400 220 / 220 Other: Meal Dinner NPO [place]fats Weight 116.12 kg Blood Glucose* 165 139 Patient Weight 07/31/16 23:59 Weight 116.12 kg - General physical appearance well developed, well nourished, no distress - Eyes normal ocular movement - ENT normal mucosa, atraumatic, normocephalic - Neck Neck exam: trachea midline - Respiratory normal expansion, normal respiratory effort, clear to auscultation - Cardiovascular Cardiovascular exam: Present: RRR - Abdomen Abdomen: Present: bowel sounds present, soft, non tender - Neurologic CN 2-12 grossly intact - Musculoskeletal normal gait, normal posture - Psychiatric oriented to time, oriented to person, oriented to place, speech is normal, memory intact - Labs 07/31/16 05:20 07/31/16 05:20 Diabetes panel 07/31/16 Range/Units 05:20 Sodium 136 (136-145) mEq/L Potassium 3.8 (3.5-4.5) mEq/L Chloride 108 (98-109) mEq/L Carbon Dioxide 23 (19-29) mEq/L BUN 14 D (8-26) mg/dL Creatinine 1.03 (0.72-1.25) mg/dL Glucose 133 H (70-99) mg/dL Calcium 8.9 (8.6-10.8) mg/dL AST 207 H (5-34) Units/L ALT 379 H (0-55) Units/L Alkaline Phosphatase 127 H (38-126) Units/L Albumin 2.6 L (3.5-5.0) g/dL Calcium panel 07/31/16 Range/Units 05:20 Calcium 8.9 (8.6-10.8) mg/dL Phosphorus 1.7 L (2.3-4.7) mg/dL Albumin 2.6 L (3.5-5.0) g/dL Pituitary panel 07/31/16 Range/Units 05:20 Sodium 136 (136-145) mEq/L Potassium 3.8 (3.5-4.5) mEq/L Chloride 108 (98-109) mEq/L Carbon Dioxide 23 (19-29) mEq/L BUN 14 D (8-26) mg/dL Creatinine 1.03 (0.72-1.25) mg/dL Glucose 133 H (70-99) mg/dL Calcium 8.9 (8.6-10.8) mg/dL Adrenal panel 07/31/16 Range/Units 05:20 Sodium 136 (136-145) mEq/L Potassium 3.8 (3.5-4.5) mEq/L Chloride 108 (98-109) mEq/L Carbon Dioxide 23 (19-29) mEq/L BUN 14 D (8-26) mg/dL Creatinine 1.03 (0.72-1.25) mg/dL Glucose 133 H (70-99) mg/dL Calcium 8.9 (8.6-10.8) mg/dL Total Bilirubin 0.7 (0.2-1.2) mg/dL AST 207 H (5-34) Units/L ALT 379 H (0-55) Units/L Alkaline Phosphatase 127 H (38-126) Units/L Albumin 2.6 L (3.5-5.0) g/dL - Imaging MRI - abdomen: report reviewed Additional Studies: Abdomen/Pelvis CT 07/29/16 17:59 IMPRESSION: Cholelithiasis as well as significant thickening of the gallbladder wall and pericholecystic fluid. Acute cholecystitis is likely. D/ / 07/29/2016 18:52:05 [facility]ledge [facility] Interpreting Provider: Marlen Rutledge MD Abdomen Ultrasound 07/30/16 09:00 IMPRESSION: Calculus cholecystitis D/ / Mario Zavala MD / Mario Zavala MD Interpreting Provider: Mario Zavala MD Abdomen MRI 07/30/16 13:24 IMPRESSION: 1. MRI findings concerning for acute cholecystitis with a distended gallbladder, wall thickening, and innumerable gallstones. 2. No intra or extrahepatic biliary dilatation. No choledocholithiasis. 3. Small sliding-type hiatal hernia. 4. Diverticulosis. D/ / 07/30/2016 17:42:05 La Nena Jacome MD / [facility] Interpreting Provider: La Nena Jacome MD - VTE Documentation of Mechanical Device: Intermittent pneumatic compression device Consult Discharge Plan - Plan Referrals: Flaquito Cm DO [Primary Care Provider] - - Attending Attestation I examined this patient and my medical decision-making was reviewed with the OPTICAL ENGINEERING MANAGER/PA/Advanced Practice Nurse/Resident Physician. I agree with the documented findings, disposition and treatment plan as described except to the extent set forth below.
[2016-07-31] MEDS: *HR* Heparin 5,000 UNIT/ML VIAL SQ SCH (17:20)
--- NOTE | 2016-07-31 19:14 | Anesthesia Evaluation PreOp ---
Date of Encounter: 07/31/16 Time of Encounter: 17:00 - Past History Planned Operation: Robotic Lap Cholecystectomy Cardiac History: HTN, Other (Anemia....will Type and Screen) Pulmonary History: Denies Any Significant HX COLD HEADER History: Denies Any Significant HX Other Medical History: Hepatic ( Elevated LFT's), Diabetes Type II, Other (Hx Colon Cancer and Prostate Cancer) Anesthesia History: No Prior Anesthetic Complications Alcohol Use: none Drug use: none Medications and Allergies Aspirin 325 mg PO DAILY 11/25/14 [History] Glimepiride [Amaryl] 4 mg PO BID 11/25/14 [History] Irbesartan [Avapro] 300 mg PO DAILY 11/25/14 [History] Metformin [Glucophage] 1,000 mg PO BID 11/25/14 [History] Multivitamin [Multivitamins] 1 tab PO DAILY 11/25/14 [History] Omeprazole [PriLOSEC] 20 mg PO DAILY 11/25/14 [History] Pioglitazone HCl [Actos] 45 mg PO DAILY 11/25/14 [History] Vitamin E 400 unit PO DAILY 11/25/14 [History] Verapamil ER (24 HR) [Calan SR] 240 mg PO DAILY 03/01/15 [History] Tamsulosin [Flomax] 0.4 mg PO DAILY 02/29/16 [History] Dutasteride [Avodart] 0.5 mg PO DAILY #30 capsule 03/29/16 [Rx] HYDROcodone/Acet 5/325 mg [Arlee 5-325 mg] 1 tab PO Q6H PRN #90 tab 05/31/16 [Rx ] Bicalutamide [Casodex] 50 mg PO DAILY 07/30/16 [History] Calcium/D3/Mag Ox/Abalone Fisherman/Bhaskar/Zn [Caltrate+D3 Plus Mineral Minis] 1 tab PO BID [History] Venlafaxine [Effexor] 37.5 mg PO DAILY 07/30/16 [History] Allergies No Known Allergies Allergy (Verified 11/25/14 11:20) - Meds/Allergy Pre-op Review Medications Reviewed: Yes Allergies Reviewed: Yes Beta Blockers on Current Med List: No Anesthesia Results - Labs 07/31/16 05:20 07/31/16 05:20 Laboratory Tests 09/14/14 11/23/15 06/22/16 06:01 08:58 13:48 Hgb Hct Plt Count PT PTT 31.3 INR Sodium Potassium BUN POC Creatinine 1.20 Creatinine Hemoglobin A1c 7.9 H 07/30/16 07/31/16 07/31/16 04:45 05:20 05:20 Hgb 9.1 L Hct 28.5 L Plt Count 139 L PT 13.5 H PTT INR 1.2 Sodium 136 Potassium 3.8 BUN 14 D POC Creatinine Creatinine 1.03 Hemoglobin A1c - Imaging EKG: report reviewed (Sinus Tach Rt BBB) Anesthesia Exam O2 Sat Weight 116.12 kg O2 Sat by Pulse Oximetry 97 O2 Sat by Pulse Oximetry 97 O2 Sat by Pulse Oximetry 97 O2 Sat by Pulse Oximetry 98 O2 Sat by Pulse Oximetry 98 O2 Sat by Pulse Oximetry 98 O2 Sat by Pulse Oximetry 96 O2 Sat by Pulse Oximetry 96 Vital Signs Temp Pulse Resp BP Pulse Ox 99.7 F H 137 18 149/77 97 07/29/16 17:38 07/29/16 17:38 07/29/16 17:38 07/29/16 17:38 07/29/16 17:38 Height: 5'11 Weight: 256 lbs NPO (# of Hours): MN Pain Scale: 1 - HEENT Pupil (Motor): Pupils equal, EOMI Mallampati: III Teeth: Missing Oral Opening: Less than or equal to 3 - COLD HEADER LOC: Oriented COLD HEADER Motor: Normal RUE, Normal LUE, Normal RLE, Normal LLE, Normal Face COLD HEADER Sensory: Normal: RUE, LUE, RLE, LLE, Face - Cardiac Rhythm: Regular Murmur: None JVD: No Carotid Bruit: No - Pulmonary Breath Sounds: bilateral Clear Respiratory Effort: Symmetrical Anesthesia Assess/Plan ASA Score: 3 (HTN DM Obese) Modified Da Scale for Level of Consciousness: Cooperative, oriented, and tranquil Anesthetic Plan: General Monitoring Plan: Standard Monitors Recovery Plan: PACU (Discussed GA, agrees to proceed)
[2016-08-01] MEDS ORDERED: *HR* Labetalol 20 MG/4 ML SYRINGE IVP ONE (00:19)
[2016-08-01 04:41] LABS: Basophils % 0.3 %; Eosinophils # 0.1 K/mcL (0.0-0.6); Eosinophils % 3.4 %; Hematocrit 28.2 % (37.5-50.1); Hemoglobin 9.3 g/dL (12.9-16.9); Immature Granulocytes % 0.3 % (0-4); Lymphocytes # 0.5 K/mcL (0.6-4.6); Lymphocytes % 16.6 %; Mean Corpuscular Hemoglobin 29.4 pg (28.0-33.3); Mean Corpuscular Volume 89.2 fL (83.0-100.0); Mean Platelet Volume 10.9 fL (9.4-12.4); Monocytes # 0.4 K/mcL (0.0-1.3); Monocytes % 12.9 %; Platelet Count 145 K/mcL (140-400); Red Blood Count 3.16 M/mcL (4.19-5.50); Red Cell Distribution Width 15.1 % (11.5-14.5); Segmented Neutrophils % 66.5 %
[2016-08-01 04:59] LABS: Albumin 2.6 g/dL (3.5-5.0); Albumin/Globulin Ratio 0.7 (1.1-2.2); Bilirubin,Direct 0.3 mg/dL (0.0-0.5); Bilirubin,Indirect 0.2 mg/dL (0.0-1.2); Bilirubin,Total 0.5 mg/dL (0.2-1.2); Globulin 3.5 g/dL (2.4-3.5); Phosphorous 2.1 mg/dL (2.3-4.7); Total Protein 6.1 g/dL (6.0-8.3)
[2016-08-01 05:00] LABS: Alanine Aminotransferase 244 Units/L (0-55); Albumin 2.6 g/dL (3.5-5.0); Albumin/Globulin Ratio 0.8 (1.1-2.2); Alkaline Phosphatase 114 Units/L (38-126); Aspartate Amino Transferase 78 Units/L (5-34); BUN/Creatinine Ratio 11 (6-26); Bilirubin,Total 0.5 mg/dL (0.2-1.2); Blood Urea Nitrogen 10 mg/dL (8-26); Carbon Dioxide 24 mEq/L (19-29); Chloride 109 mEq/L (98-109); Globulin 3.4 g/dL (2.4-3.5); Glucose 157 mg/dL (70-99); Osmolality,Calculated 288 (280-300); Potassium 3.6 mEq/L (3.5-4.5); Sodium 138 mEq/L (136-145); eGFR For African Americans > 60 (> 60); eGFR For Non-African Americans > 60 (> 60)
[2016-08-01] MEDS: *HR* Heparin 5,000 UNIT/ML VIAL SQ SCH ×2 (05:27→18:12)
[2016-08-01] MEDS: Insulin LISPRO 300 UNITS/3 ML VIAL SQ SCH ×2 (07:49→11:14)
[2016-08-01] MEDS: MetroNIDAZOLE 500 MG/100 ML 500 MG/100 ML BAG IVPB SCH ×2 (07:51→23:53)
[2016-08-01] MEDS: Finasteride 5 MG TABLET PO SCH (07:52)
[2016-08-01] MEDS: Pantoprazole 40 MG VIAL IVP SCH (07:52)
[2016-08-01] MEDS: Verapamil ER (24 HR) 240 MG TABLET.ER PO SCH (07:52)
--- NOTE | 2016-08-01 09:17 | Internal Med Progress Note ---
<Dhruv Desouza - Last Filed: 08/01/16 09:15> Date of Encounter: 08/01/16 Time of Encounter: 09:15 - Assessment and plan (1) Acute cholecystitis due to biliary calculus Current Visit: Yes Status: Acute Assessment and plan: Patient presented with nausea, vomiting, abdominal discomfort found to have a AST of 1171 ALT of 716, alkaline phosphatase 160. GGT 257, abdominal CT, MRI and right upper quadrant ultrasound demonstrated acute cholecystitis with a distended gallbladder and multiple gallstones. No definitive bile duct dilation or bile duct obstruction. - Patient is asymptomatic today - Liver enzymes improving Plan: - Per general surgery planned for cholecystectomy today. - Continue NPO today. - Possible discharge after procedure. - Continue metronidazole and ceftriaxone. (2) Prostate cancer Current Visit: No Status: Chronic Assessment and plan: T1 N0 M0 disease. Due to persistently elevated PSA, he was started on Casodex 04/10/16. currently, taking casodex and lupron. proscar, flomax. Patient asymptomatic today. (3) Diabetes Current Visit: Yes Status: Acute Assessment and plan: DM with hyperglycemia upon admission. Current glucose 169 Plan: continue IV fluids. sliding scale insulin. full liquid diabetic diet. - achs glucose checks. Qualifiers: Diabetes mellitus type: type 2 Diabetes mellitus complication status: without complication Diabetes mellitus custodial insulin use: without dimensional engineer use Qualified Code(s): E11.9 - Type 2 diabetes mellitus without complications (4) Elevated LFTs Current Visit: Yes Status: Acute Assessment and plan: Improving. Likely secondary to choledocholithiasis. Plan: - Cholecystectomy to resolve underlining cause. (5) HTN (hypertension) Current Visit: Yes Status: Acute Assessment and plan: Blood pressure was elevated with a systolic blood pressure around 206 at its peak. Likely secondary to discontinuation of patient's ARB at admission. Plan: - Continue monitoring blood pressures - Continue verapamil - Hydralazine 5 mg IV push every 6 hours with systolic blood pressure greater than 160. - Started Cozaar 100 mg by mouth daily. Qualifiers: Hypertension type: essential hypertension Qualified Code(s): I10 - Essential (primary) hypertension (6) DVT prophylaxis Current Visit: Yes Status: Acute Assessment and plan: Continue subcutaneous heparin at 5000 units every 12 hours. - Subjective Interval history: Mr. Parker 85-year-old male is seen evaluated a patient bedside this morning. He is awake alert interactive in no acute distress. He denies any pains, nausea vomiting diarrhea constipation abdominal pain or discomforts. He said he did not sleep well with anticipation for his procedure this morning. He is otherwise doing well and He has no concerns at this time. - Constitutional Vitals: Temp Pulse Resp BP Pulse Ox 98.2 F 83 18 178/93 98 08/01/16 06:45 08/01/16 06:45 08/01/16 06:45 08/01/16 06:45 08/01/16 06:45 General appearance: Present: cooperative, A&O X 3 (Dry mucosa), pleasant, no acute distress, answers questions appropriately - Head Head exam: Present: atraumatic, normocephalic - Eye Eye exam: Present: PERRL, conjuntiva pink, sclera anicteric Pupils: Present: PERRL - ENT ENT exam: Present: mucous membranes moist - Neck Neck exam general surgery: Present: supple, trachea midline. Absent: lymphadenopathy - Respiratory Respiratory exam: Present: CTAB. Absent: accessory muscle use, rales, rhonchi, wheezes - Cardiovascular Cardiovascular exam: Present: RRR, +S1, +S2. Absent: diastolic murmur, gallop, rubs, systolic murmur - GI/Abdominal GI/Abdominal exam: Present: normal bowel sounds, soft, no peritoneal signs. Absent: distended, tenderness - Extremities Exam Extremities exam: Present: warm, radial pulses palpable and symetrical. Absent : calf tenderness, cyanotic, pedal edema - Neurological Exam Neurological exam: Present: alert, oriented X3, no focal deficits. Absent: pronater drift, facial droop, speech deficit - Psychiatric Psychiatric exam: Present: normal affect, normal mood - Skin Skin exam: Present: dry, intact Internal Medicine: Result - Labs CBC & Chem 7: 08/01/16 04:06 08/01/16 04:06 Labs: Short CBC 08/01/16 Range/Units 04:06 WBC 3.0 L (4.3-11.1) K/mcL Hgb 9.3 L (12.9-16.9) g/dL Hct 28.2 L (37.5-50.1) % Plt Count 145 (140-400) K/mcL Neutrophils # 2.0 (1.6-8.9) K/mcL BMP 08/01/16 04:06 Sodium 138 Potassium 3.6 Chloride 109 Carbon Dioxide 24 BUN 10 Creatinine 0.95 Glucose 157 H Calcium 9.0 Liver Function 08/01/16 08/01/16 Range/Units 04:06 04:06 Total Bilirubin 0.5 0.5 (0.2-1.2) mg/dL Direct Bilirubin 0.3 (0.0-0.5) mg/dL AST 78 H 77 H (5-34) Units/L ALT 244 H 247 H (0-55) Units/L Alkaline Phosphatase 114 115 (38-126) Units/L Albumin 2.6 L 2.6 L (3.5-5.0) g/dL - ABG Interpretation ABG results: PT/INR, D-dimer PT 13.5 Seconds (9.4-12.1) H 07/30/16 04:45 - VTE Documentation of Mechanical Device: Intermittent pneumatic compression device Consult Discharge Plan - Plan Referrals: Flaquito Cm DO [Primary Care Provider] - <Ml Matamoros - Last Filed: 08/01/16 16:11> Date of Encounter: 08/01/16 - Assessment and plan (1) Acute cholecystitis due to biliary calculus Current Visit: Yes Status: Acute (2) Elevated LFTs Current Visit: Yes Status: Acute (3) Diabetes Current Visit: Yes Status: Acute Qualifiers: Diabetes mellitus type: type 2 Diabetes mellitus complication status: without complication Diabetes mellitus custodial insulin use: without custodial use Qualified Code(s): E11.9 - Type 2 diabetes mellitus without complications (4) HTN (hypertension) Current Visit: Yes Status: Acute Qualifiers: Hypertension type: essential hypertension Qualified Code(s): I10 - Essential (primary) hypertension (5) Prostate cancer Current Visit: No Status: Chronic - Constitutional Vitals: Temp Pulse Resp BP Pulse Ox 98.5 F 81 15 169/89 97 08/01/16 11:49 08/01/16 11:49 08/01/16 11:49 08/01/16 11:49 08/01/16 11:49 Internal Medicine: Result - Labs CBC & Chem 7: 08/01/16 04:06 08/01/16 04:06 Labs: Short CBC 08/01/16 Range/Units 04:06 WBC 3.0 L (4.3-11.1) K/mcL Hgb 9.3 L (12.9-16.9) g/dL Hct 28.2 L (37.5-50.1) % Plt Count 145 (140-400) K/mcL Neutrophils # 2.0 (1.6-8.9) K/mcL BMP 08/01/16 04:06 Sodium 138 Potassium 3.6 Chloride 109 Carbon Dioxide 24 BUN 10 Creatinine 0.95 Glucose 157 H Calcium 9.0 Liver Function 08/01/16 08/01/16 Range/Units 04:06 04:06 Total Bilirubin 0.5 0.5 (0.2-1.2) mg/dL Direct Bilirubin 0.3 (0.0-0.5) mg/dL AST 78 H 77 H (5-34) Units/L ALT 244 H 247 H (0-55) Units/L Alkaline Phosphatase 114 115 (38-126) Units/L Albumin 2.6 L 2.6 L (3.5-5.0) g/dL - ABG Interpretation ABG results: PT/INR, D-dimer PT 13.5 Seconds (9.4-12.1) H 07/30/16 04:45 - Impressions Impressions Abdomen MRI 07/30/16 13:24 IMPRESSION: 1. MRI findings concerning for acute cholecystitis with a distended gallbladder, wall thickening, and innumerable gallstones. 2. No intra or extrahepatic biliary dilatation. No choledocholithiasis. 3. Small sliding-type hiatal hernia. 4. Diverticulosis. D/ / 07/30/2016 17:42:05 La Nena Jacome MD / flower Interpreting Provider: La Nena Jacome MD - Attending Attestation I examined this patient and reviewed laboratory, imaging and all diagnostic data. My medical decision-making was reviewed with Dr Desouza - Resident Physician. I agree with the documented findings, disposition and treatment plan as described above
[2016-08-01] MEDS ORDERED: Dexamethasone 4 MG/ML VIAL ONE (13:38)
[2016-08-01] MEDS ORDERED: Ondansetron 4 MG/2 ML VIAL ONE (13:38)
[2016-08-01] MEDS ORDERED: *HR* Rocuronium Bromide 50 MG/5 ML VIAL ONE (13:39)
[2016-08-01] MEDS ORDERED: *HR* Propofol 200 MG/20 ML VIAL IVP ONE (13:39)
[2016-08-01] MEDS ORDERED: Lidocaine -MPF 2% 2 ML VIAL ONE (13:39)
[2016-08-01] MEDS ORDERED: *HR* FentaNYL (PF) 100 MCG/2 ML VIAL ONE (13:39)
[2016-08-01] MEDS ORDERED: *HR* HYDROmorphone 2 MG/ML SYRINGE ONE (16:03)
[2016-08-01] MEDS ORDERED: Neostigmine Methylsulfate 3 MG/3 ML SYRINGE ONE (16:15)
--- NOTE | 2016-08-01 16:49 | Anesthesia Evaluation Post Op ---
Date of Encounter: 08/01/16 Time of Encounter: 16:50 - Vital Signs Vital Signs: vss - Lungs Lungs: Clear Ascult./Percussion - Airway Airway: Non-obstructed - Cardiovascular Regular Rate - Mental Status Mental Status: Alert & Oriented, Answers Appropriately - Pain Pain Scale: 1 Pain Scale used: Numeric (1 - 10) - Nausea Vomiting Nausea Vomiting: Not Present - Hydration Hydration: Ice chips - Discharge PostOp Status: Transfer Patient to floor
[2016-08-01] MEDS ORDERED: *HR* HYDROmorphone (PF) 1 MG/ML SYRINGE IVP PRN (17:07)
[2016-08-01] MEDS ORDERED: Naloxone 0.4 MG/ML INJ IVP PRN (17:07)
[2016-08-01] MEDS ORDERED: *HR* Dextrose 50 % in Water (Syg) 50 ML SYRINGE IVP PRN (17:07)
[2016-08-01] MEDS ORDERED: D5% in Water 1,000 ML IVC PRN (17:07)
[2016-08-01] MEDS ORDERED: Acetaminophen 325 MG TABLET PO PRN (17:07)
[2016-08-01] MEDS ORDERED: Dextrose Gel 15 GM PO PRN ×2 (17:07)
[2016-08-01] MEDS ORDERED: Ondansetron 4 MG/2 ML VIAL IVP PRN (17:07)
--- NOTE | 2016-08-01 17:20 | Operative Note ---
Date of procedure: 08/01/16 Pre-op diagnosis: Acute cholecystitis Post-op diagnosis: same Procedure: Robotic cholecystectomy with ICG cholangiogram Anesthesia: DARLENE Surgeon: Tenzin Martinez Estimated blood loss (cc): 50 Specimen: GB Condition: stable Disposition: floor Procedure in Detail: After informed consent the patient was taken to the operating room. After adequate sedation anesthesia the abdomen was prepped and draped. A proper timeout was performed. Two towel clamps to place the umbilicus. A varies needle was placed at the umbilicus and a pneumo-peritoneum was created. A 12 mm incision was made at the umbilicus and a port was placed under direct visualization. An 8 mm incision was created in the left upper quadrant, followed by one in the right upper quadrant. There were 2 individual 8 mm cannulas then placed agrees incisions. An additional 5 mm cannula was created in the right lower quadrant. The robot was docked over the patients head. A alligator clamp was then placed on the gallbladder was retracted anteriorly and cephalad. The robot was connected to the wart sites. A grasper and hook were through the 2 robotic arms. Preoperatively the patient had been given indo- cyanine green. The infundibulum of the gallbladder was identified and the cystic duct was skeletonized. Utilizing the ICG I was able to identify the cystic duct, common hepatic duct, and common bile duct. Once the structures were identified the cystic duct was clipped twice proximally and once distally. Cystic duct was then transected. The gallbladder was then resected off the liver surface. The ICG was again utilized to identify any abberrant ductwork in the liver bed, there was none noted. Once the gallbladder was fully resected from the liver surface, the liver was gently irrigated and suctioned dry. We ensured hemostasis prior to removing the gallbladder through the umbilical port. Pneumoperitoneum was then evacuated. The 12 mm cannula site was closed with a 0-Vicryl suture in [id number] fashion. The port sites were injected with half percent Marcaine 30 mL. The skin was closed with 4-0 Vicryl suture and Dermabond. All instrument counts and needle counts were correct at the end of the case. The pt was taken to recovery in stable condition.
[2016-08-01] MEDS ORDERED: Insulin LISPRO 300 UNITS/3 ML VIAL SQ SCH (21:00)
[2016-08-01] MEDS: *HR* OxyCODONE/APAP 5/325 TABLET PO PRN (21:52)
[2016-08-02 03:38] LABS: Hematocrit 30.9 % (37.5-50.1); Hemoglobin 9.9 g/dL (12.9-16.9); Immature Granulocytes % 0.5 % (0-4); Lymphocytes # 0.3 K/mcL (0.6-4.6); Lymphocytes % 3.9 %; Mean Corpuscular Hemoglobin 28.7 pg (28.0-33.3); Mean Corpuscular Volume 89.6 fL (83.0-100.0); Mean Platelet Volume 10.5 fL (9.4-12.4); Monocytes # 0.4 K/mcL (0.0-1.3); Monocytes % 5.2 %; Neutrophils # 7.4 K/mcL (1.6-8.9); Platelet Count 188 K/mcL (140-400); Red Blood Count 3.45 M/mcL (4.19-5.50); Red Cell Distribution Width 15.1 % (11.5-14.5); Segmented Neutrophils % 90.4 %
[2016-08-02 04:01] LABS: Alanine Aminotransferase 215 Units/L (0-55); Albumin 2.8 g/dL (3.5-5.0); Albumin/Globulin Ratio 0.7 (1.1-2.2); Alkaline Phosphatase 165 Units/L (38-126); Aspartate Amino Transferase 95 Units/L (5-34); BUN/Creatinine Ratio 10 (6-26); Bilirubin,Total 0.6 mg/dL (0.2-1.2); Blood Urea Nitrogen 11 mg/dL (8-26); Calcium 9.2 mg/dL (8.6-10.8); Carbon Dioxide 22 mEq/L (19-29); Chloride 105 mEq/L (98-109); Globulin 3.8 g/dL (2.4-3.5); Glucose 289 mg/dL (70-99); Osmolality,Calculated 292 (280-300); Potassium 4.5 mEq/L (3.5-4.5); Sodium 136 mEq/L (136-145); Total Protein 6.6 g/dL (6.0-8.3); eGFR For African Americans > 60 (> 60); eGFR For Non-African Americans > 60 (> 60)
[2016-08-02 04:30] LABS: Platelet Estimate Normal (Normal)
[2016-08-02] MEDS: *HR* Heparin 5,000 UNIT/ML VIAL SQ SCH (05:58)
[2016-08-02] MEDS ORDERED: Insulin LISPRO 300 UNITS/3 ML VIAL SQ SCH ×2 (07:30→10:42)
[2016-08-02] MEDS: MetroNIDAZOLE 500 MG/100 ML 500 MG/100 ML BAG IVPB SCH (07:36)
[2016-08-02] MEDS ORDERED: Verapamil ER (24 HR) 240 MG TABLET.ER PO SCH (09:00)
[2016-08-02] MEDS ORDERED: Finasteride 5 MG TABLET PO SCH (09:00)
[2016-08-02] MEDS ORDERED: Insulin DETEMIR 100 UNIT/ML X5UNITS SQ SCH (09:00)
--- NOTE | 2016-08-02 10:41 | Internal Med Progress Note ---
<Dhruv Desouza - Last Filed: 08/02/16 18:06> Date of Encounter: 08/02/16 Time of Encounter: 10:37 - Assessment and plan (1) Acute cholecystitis due to biliary calculus Current Visit: Yes Status: Acute Assessment and plan: Patient presented with nausea, vomiting, abdominal discomfort found to have a AST of 1171 ALT of 716, alkaline phosphatase 160. GGT 257, abdominal CT, MRI and right upper quadrant ultrasound demonstrated acute cholecystitis with a distended gallbladder and multiple gallstones. No definitive bile duct dilation or bile duct obstruction. 08/02/2016: post-op day 1 cholecystectomy, patient stable with right upper quadrant ONI drain with appropriate drainage. Patient without significant pain, improving. Laboratory results stable, vitals patient slightly hypertensive may be secondary to pain. Plan: - Improving steadily - Continues to have postop ileus no bowel movements or flatulence. Patient ambulate in the martino and work on bowel movements. - Tolerating transition diet - Continue metronidazole and ceftriaxone. (2) Prostate cancer Current Visit: No Status: Chronic Assessment and plan: T1 N0 M0 disease. Due to persistently elevated PSA, he was started on Casodex 04/10/16. currently, taking casodex and lupron. proscar, flomax. Patient asymptomatic today. (3) Diabetes Current Visit: Yes Status: Acute Assessment and plan: DM type II, hyperglycemic this morning started transition diet. Plan: - increase sliding scale insulin to medium dose , adjust as necessary. Goal is to have glucose between 90 and 110 - Started on Levemir 10 units subcutaneous twice a day -Before meals at bedtime glucose checks Qualifiers: Diabetes mellitus type: type 2 Diabetes mellitus complication status: without complication Diabetes mellitus senior living insulin use: without senior living use Qualified Code(s): E11.9 - Type 2 diabetes mellitus without complications (4) Elevated LFTs Current Visit: Yes Status: Acute Assessment and plan: Improving. Likely secondary to choledocholithiasis. - Continue to monitor post cholecystectomy. (5) HTN (hypertension) Current Visit: Yes Status: Acute Assessment and plan: Blood pressure was elevated with a systolic blood pressure around 206 at its peak. Likely secondary to discontinuation of patient's ARB at admission. Plan: - Continue monitoring blood pressures - Continue verapamil - Hydralazine 5 mg IV push every 6 hours with systolic blood pressure greater than 160. - Started Cozaar 100 mg by mouth daily. Qualifiers: Hypertension type: essential hypertension Qualified Code(s): I10 - Essential (primary) hypertension (6) DVT prophylaxis Current Visit: Yes Status: Acute Assessment and plan: Continue subcutaneous heparin at 5000 units every 12 hours. - Subjective Interval history: Mr. Dobbins 85-year-old male is seen evaluated a patient bedside this morning. He says he feels well this morning tolerating his full liquid diet. Denies any flatulence or bowel movements as of yet. He has little to mild abdominal pain and says that he did not need any pain medications as of yet. He understands that he does have Tylenol and a medication if necessary. - Constitutional Vitals: Temp Pulse Resp BP Pulse Ox 98.3 F 87 18 171/84 97 08/02/16 06:49 08/02/16 06:49 08/02/16 06:49 08/02/16 06:49 08/02/16 06:49 General appearance: Present: cooperative, A&O X 3 (Dry mucosa), pleasant, no acute distress, answers questions appropriately - Head Head exam: Present: atraumatic, normocephalic - Eye Eye exam: Present: PERRL, conjuntiva pink, sclera anicteric Pupils: Present: PERRL - ENT ENT exam: Present: mucous membranes moist - Neck Neck exam general surgery: Present: supple, trachea midline. Absent: lymphadenopathy - Respiratory Respiratory exam: Present: CTAB. Absent: accessory muscle use, rales, rhonchi, wheezes - Cardiovascular Cardiovascular exam: Present: RRR, +S1, +S2. Absent: diastolic murmur, gallop, rubs, systolic murmur - GI/Abdominal GI/Abdominal exam: Present: distended, normal bowel sounds. Absent: tenderness Additional comments: ONI drain in right upper quadrant, mild bloody discharge. - Extremities Exam Extremities exam: Present: warm, radial pulses palpable and symetrical. Absent : calf tenderness, cyanotic, pedal edema - Neurological Exam Neurological exam: Present: alert, oriented X3, no focal deficits. Absent: pronater drift, facial droop, speech deficit - Psychiatric Psychiatric exam: Present: normal affect, normal mood Internal Medicine: Result - Labs CBC & Chem 7: 08/02/16 03:23 08/02/16 17:12 Labs: Short CBC 08/02/16 Range/Units 03:23 WBC 8.2 D (4.3-11.1) K/mcL Hgb 9.9 L (12.9-16.9) g/dL Hct 30.9 L (37.5-50.1) % Plt Count 188 (140-400) K/mcL Neutrophils # 7.4 (1.6-8.9) K/mcL BMP 08/02/16 03:23 Sodium 136 Potassium 4.5 Chloride 105 Carbon Dioxide 22 BUN 11 Creatinine 1.13 Glucose 289 H Calcium 9.2 Liver Function 08/02/16 Range/Units 03:23 Total Bilirubin 0.6 (0.2-1.2) mg/dL AST 95 H (5-34) Units/L ALT 215 H (0-55) Units/L Alkaline Phosphatase 165 H (38-126) Units/L Albumin 2.8 L (3.5-5.0) g/dL - ABG Interpretation ABG results: PT/INR, D-dimer PT 13.5 Seconds (9.4-12.1) H 07/30/16 04:45 - VTE Documentation of Mechanical Device: Intermittent pneumatic compression device Consult Discharge Plan - Plan Additional Instructions: Surgical instructions: #1 May shower 08/03/16, no tub bath X 2 weeks #2 Wash incisions and around drain with soap and water daily and then pat dry. Apply split 4X4 gauze to drain and tape to secure daily #3 Empty drain 2 times daily and as needed if full. Record output in ml's on drain record and bring to follow-up appointment on 08/09/16 #4 No lifting/pushing/pulling greater than 15 lb. X 2 weeks #5 No driving until off narcotics and able to safely react in the car #6 May climb stairs Medical instructions: - Follow up with PCP in the next 3-5 days - take medications as prescribed. Referrals: Flaquito Cm DO [Primary Care Provider] - Elisa Christensen CNP [Advanced Practice Nurse] - 08/09/16 11:45 am Prescriptions: HYDROcodone/Acet 5/325 mg [[place] 5-325 mg] 1 tab PO Q6H PRN #30 tab PRN Reason: Pain Sennosides/Docusate Sodium [Senna Plus] 2 each PO BID #60 tablet <Coleman-YumiMl E - Last Filed: 08/02/16 18:19> Date of Encounter: 08/02/16 - Assessment and plan (1) Acute cholecystitis due to biliary calculus Current Visit: Yes Status: Acute (2) Elevated LFTs Current Visit: Yes Status: Acute (3) Diabetes Current Visit: Yes Status: Acute Qualifiers: Diabetes mellitus type: type 2 Diabetes mellitus complication status: without complication Diabetes mellitus assistant terminal manager insulin use: without assistant terminal manager use Qualified Code(s): E11.9 - Type 2 diabetes mellitus without complications (4) HTN (hypertension) Current Visit: Yes Status: Acute Qualifiers: Hypertension type: essential hypertension Qualified Code(s): I10 - Essential (primary) hypertension (5) Prostate cancer Current Visit: No Status: Chronic - Constitutional Vitals: Temp Pulse Resp BP Pulse Ox 98.7 F 90 17 148/75 95 08/02/16 14:09 08/02/16 14:09 08/02/16 14:09 08/02/16 14:09 08/02/16 14:09 Internal Medicine: Result - Labs CBC & Chem 7: 08/02/16 03:23 08/02/16 17:12 Labs: Short CBC 08/02/16 Range/Units 03:23 WBC 8.2 D (4.3-11.1) K/mcL Hgb 9.9 L (12.9-16.9) g/dL Hct 30.9 L (37.5-50.1) % Plt Count 188 (140-400) K/mcL Neutrophils # 7.4 (1.6-8.9) K/mcL BMP 08/02/16 08/02/16 03:23 17:12 Sodium 136 134 L Potassium 4.5 3.9 Chloride 105 102 Carbon Dioxide 22 24 BUN 11 13 Creatinine 1.13 1.15 Glucose 289 H 244 H Calcium 9.2 9.1 Liver Function 08/02/16 Range/Units 03:23 Total Bilirubin 0.6 (0.2-1.2) mg/dL AST 95 H (5-34) Units/L ALT 215 H (0-55) Units/L Alkaline Phosphatase 165 H (38-126) Units/L Albumin 2.8 L (3.5-5.0) g/dL - ABG Interpretation ABG results: PT/INR, D-dimer PT 13.5 Seconds (9.4-12.1) H 07/30/16 04:45 - Attending Attestation I examined this patient and reviewed laboratory, imaging and all diagnostic data. My medical decision-making was reviewed with Dr Desouza - Resident Physician. I agree with the documented findings, disposition and treatment plan as described above
[2016-08-02] MEDS: Insulin LISPRO 300 UNITS/3 ML VIAL SQ SCH ×2 (12:01→16:20)
[2016-08-02] MEDS: *HR* OxyCODONE/APAP 5/325 TABLET PO PRN (13:52)
[2016-08-02 14:12] VITALS: BP 148/75
--- NOTE | 2016-08-02 15:50 | General Surgery Progress Note ---
Date of Encounter: 08/02/16 Time of Encounter: 15:47 - Assessment and Plan (1) Acute cholecystitis due to biliary calculus Current Visit: Yes Status: Acute POD #1 laparoscopic cholecystectomy Continue ONI drain D/C IV antibiotics Advance diet to regular Increase activity as tolerated IS every 1 hour while awake Supportive care/pain control May discharge from a surgical standpoint when medically ready- see surgical instructions (2) Elevated LFTs Current Visit: Yes Status: Acute Improving Hepatitis panel negative (3) Prostate cancer Current Visit: No Status: Chronic Followed per [facility] (4) DVT prophylaxis Current Visit: Yes Status: Acute Continue heparin 5,000 units SQ twice daily for DVT prophylaxis Subjective Patient reports: no new complaints, feels better, tolerating liquids well, voiding w/o difficulty, no bowel movement, afebrile Objective Vital Signs - Last 8 Hours Temp Pulse Resp BP Pulse Ox 08/02/16 14:09 98.7 F 90 17 148/75 95 08/02/16 10:40 98.7 F 87 14 164/76 95 Intake and Output 08/01/16 08/02/16 08/02/16 23:59 07:59 15:59 Intake Total 100 / 100 935 / 935 2940 / 2940 Output Total 320 / 320 595 / 595 270 / 270 Balance -220 / -220 340 / 340 2670 / 2670 Intake: IV Fluids 100 / 100 935 / 935 100 / 100 0.45% Sodium Chloride 835 / 835 1000 Ml 1000 Ml 1,000 ML @ 50 mls/hr IVC .Q20H [facility] Rx#:[id number] Rocephin 1,000 MG In 100 / 100 Dextrose 5% (Minibag+) 100 ML 100 ML @ 200 mls/ hr IVPB Q24H [facility] Rx#: [id number] Flagyl 500 MG/100 ML 500 100 / 100 100 / 100 mg In 100 ml @ 100 mls/hr IVPB Q8HR [facility] Rx#: [id number] Oral 2840 / 2840 Output: Urine 250 / 250 525 / 525 250 / 250 Wound Drainage 70 / 70 70 / 70 20 / 20 Right Abdomen 40 / 40 70 / 70 20 / 20 Other: Meal Clear # Bowel Movements 0 0 Weight 114.107 kg Blood Glucose* 261 264 314 Patient Weight 08/02/16 23:59 Weight 114.107 kg - General physical appearance well developed, well nourished, no distress - Eyes normal ocular movement - ENT normal mucosa, atraumatic, normocephalic - Neck Neck exam: trachea midline - Respiratory normal respiratory effort, clear to auscultation - Cardiovascular Cardiovascular exam: Present: RRR - Abdomen Abdomen: Present: bowel sounds present, soft, tender (minimal), wound (ONI drain to bulb suction with serousang. drainage noted) - Neurologic CN 2-12 grossly intact - Psychiatric oriented to time, oriented to person, oriented to place, speech is normal, memory intact - Labs 08/02/16 03:23 08/02/16 03:23 Diabetes panel 08/02/16 Range/Units 03:23 Sodium 136 (136-145) mEq/L Potassium 4.5 (3.5-4.5) mEq/L Chloride 105 (98-109) mEq/L Carbon Dioxide 22 (19-29) mEq/L BUN 11 (8-26) mg/dL Creatinine 1.13 (0.72-1.25) mg/dL Glucose 289 H (70-99) mg/dL Calcium 9.2 (8.6-10.8) mg/dL AST 95 H (5-34) Units/L ALT 215 H (0-55) Units/L Alkaline Phosphatase 165 H (38-126) Units/L Albumin 2.8 L (3.5-5.0) g/dL Calcium panel 08/02/16 Range/Units 03:23 Calcium 9.2 (8.6-10.8) mg/dL Albumin 2.8 L (3.5-5.0) g/dL Pituitary panel 08/02/16 Range/Units 03:23 Sodium 136 (136-145) mEq/L Potassium 4.5 (3.5-4.5) mEq/L Chloride 105 (98-109) mEq/L Carbon Dioxide 22 (19-29) mEq/L BUN 11 (8-26) mg/dL Creatinine 1.13 (0.72-1.25) mg/dL Glucose 289 H (70-99) mg/dL Calcium 9.2 (8.6-10.8) mg/dL Adrenal panel 08/02/16 Range/Units 03:23 Sodium 136 (136-145) mEq/L Potassium 4.5 (3.5-4.5) mEq/L Chloride 105 (98-109) mEq/L Carbon Dioxide 22 (19-29) mEq/L BUN 11 (8-26) mg/dL Creatinine 1.13 (0.72-1.25) mg/dL Glucose 289 H (70-99) mg/dL Calcium 9.2 (8.6-10.8) mg/dL Total Bilirubin 0.6 (0.2-1.2) mg/dL AST 95 H (5-34) Units/L ALT 215 H (0-55) Units/L Alkaline Phosphatase 165 H (38-126) Units/L Albumin 2.8 L (3.5-5.0) g/dL - VTE Documentation of Mechanical Device: Intermittent pneumatic compression device Consult Discharge Plan - Plan Additional Instructions: Surgical instructions: #1 May shower 08/03/16, no tub bath X 2 weeks #2 Wash incisions and around drain with soap and water daily and then pat dry. Apply split 4X4 gauze to drain and tape to secure daily #3 Empty drain 2 times daily and as needed if full. Record output in ml's on drain record and bring to follow-up appointment on 08/09/16 #4 No lifting/pushing/pulling greater than 15 lb. X 2 weeks #5 No driving until off narcotics and able to safely react in the car #6 May climb stairs Referrals: Flaquito Cm DO [Primary Care Provider] - Prescriptions: HYDROcodone/Acet 5/325 mg [[place] 5-325 mg] 1 tab PO Q6H PRN #30 tab PRN Reason: Pain
--- NOTE | 2016-08-02 16:26 | Discharge Summary ---
Addendum entered and electronically signed by Dhruv Desouza DO 08/02 18:05: Discontinued Pioglitazone HCl [Actos] as it is a black box medication in patients with CAD. Original Note: <Dhruv Desouza - Last Filed: 08/02/16 16:24> Date of Encounter: 08/02/16 Time of Encounter: 16:24 - Discharge Diagnosis (1) Acute cholecystitis due to biliary calculus Priority: Primary Status: Acute (2) Prostate cancer Priority: Secondary Status: Chronic (3) Diabetes Priority: Secondary Status: Acute Qualifiers: Diabetes mellitus type: type 2 Diabetes mellitus complication status: without complication Diabetes mellitus long-term insulin use: without vulcan crewmember use Qualified Code(s): E11.9 - Type 2 diabetes mellitus without complications (4) Elevated LFTs Priority: Primary Status: Acute (5) HTN (hypertension) Priority: Primary Status: Acute Qualifiers: Hypertension type: essential hypertension Qualified Code(s): I10 - Essential (primary) hypertension (6) DVT prophylaxis Priority: Secondary Status: Acute - Discharge Medications Prescriptions: HYDROcodone/Acet 5/325 mg [[place] 5-325 mg] 1 tab PO Q6H PRN #30 tab PRN Reason: Pain Sennosides/Docusate Sodium [Senna Plus] 2 each PO BID #60 tablet Home Medications: Aspirin 325 mg PO DAILY 11/25/14 [History] Glimepiride [Amaryl] 4 mg PO BID 11/25/14 [History] Irbesartan [Avapro] 300 mg PO DAILY 11/25/14 [History] Metformin [Glucophage] 1,000 mg PO BID 11/25/14 [History] Multivitamin [Multivitamins] 1 tab PO DAILY 11/25/14 [History] Omeprazole [PriLOSEC] 20 mg PO DAILY 11/25/14 [History] Vitamin E 400 unit PO DAILY 11/25/14 [History] Verapamil ER (24 HR) [Calan SR] 240 mg PO DAILY 03/01/15 [History] Tamsulosin [Flomax] 0.4 mg PO DAILY 02/29/16 [History] Dutasteride [Avodart] 0.5 mg PO DAILY #30 capsule 03/29/16 [Rx] Bicalutamide [Casodex] 50 mg PO DAILY 07/30/16 [History] Calcium/D3/Mag Ox/Medical Technologist Blood Bank/Bhaskar/Zn [Caltrate+D3 Plus Mineral Minis] 1 tab PO BID [History] Venlafaxine [Effexor] 37.5 mg PO DAILY 07/30/16 [History] HYDROcodone/Acet 5/325 mg [[place] 5-325 mg] 1 tab PO Q6H PRN #30 tab 08/02/16 [Rx ] Sennosides/Docusate Sodium [Senna Plus] 2 each PO BID #60 tablet 08/02/16 [Rx] Allergies/Adverse Reactions: Allergies No Known Allergies Allergy (Verified 11/25/14 11:20) Date of admission: 07/29/16 21:37 Primary care physician: Flaquito Cm, Consults: 07/29/16 22:08 Consult to Surgery [CONS] Routine Consulting Provider: Tenzin Martinez Reason for Consult: cholecystitis er spoke with sx Call Completed: Yes Discharging clinician: Dhruv Desouza Anticipated date of discharge: 08/02/16 - Patient Status Disposition: Home, Self-Care Condition: Good Functional capacity at discharge: independent ambulation Overall status at discharge: patient is progressing back to baseline - Discharge Instructions Follow Up With: Flaquito Cm DO [Primary Care Provider] - Elisa Christensen CNP [Advanced Practice Nurse] - 08/09/16 11:45 am Additional Instructions: Surgical instructions: #1 May shower 08/03/16, no tub bath X 2 weeks #2 Wash incisions and around drain with soap and water daily and then pat dry. Apply split 4X4 gauze to drain and tape to secure daily #3 Empty drain 2 times daily and as needed if full. Record output in ml's on drain record and bring to follow-up appointment on 08/09/16 #4 No lifting/pushing/pulling greater than 15 lb. X 2 weeks #5 No driving until off narcotics and able to safely react in the car #6 May climb stairs Medical instructions: - Follow up with PCP in the next 3-5 days - take medications as prescribed. - Diet and Activity Activity: increase activity as tolerated Diet: diabetic diet Interval History: Mr. Dobbins is a 85 year old male with a past medical history of metastatic prostate cancer, hypertension, diabetes type 2 not insulin-dependent who came to the emergency room complaining of nonstop vomiting was admitted to [facility] with acute cholecystitis with significantly elevated LFTs. General surgery was consulted and imaging studies were reviewed including abdominal CT and RUQ US. It was determined he was likely fit for surgical intervention. He was kept NPO and an MRCP was ordered to evaluate for obstructing stones. He remained stable with improvement of his pain with NPO status. His other chronic medical conditions including DM type II and HTN were addressed during his inpatient stay. He underwent Cholecystectomy on 08/01/2016 with drain placement. He remained stable overnight. He tolerated advancement in his diet and improvement in bowel sounds post operatively. He was evaluated in the evening of 08/02/2016 and deemed stable for discharge home with drain care teaching prior to discharge. A script for Amanda + was sent to his pharmacy. Hospital course: Mr. Dobbins is a 85 year old male - Time Spent with Patient Total time spent providing and/or coordinating discharge services: - Constitutional Vitals: Temp Pulse Resp BP Pulse Ox 98.7 F 90 17 148/75 95 08/02/16 14:09 08/02/16 14:09 08/02/16 14:09 08/02/16 14:09 08/02/16 14:09 General appearance: Present: cooperative, A&O X 3 (Dry mucosa), pleasant, no acute distress, answers questions appropriately - Head Head exam: Present: atraumatic, normocephalic - Eye Eye exam: Present: PERRL, conjuntiva pink, sclera anicteric Pupils: Present: PERRL - ENT ENT exam: Present: mucous membranes moist - Neck Neck exam general surgery: Present: supple, trachea midline. Absent: lymphadenopathy - Respiratory Respiratory exam: Present: CTAB. Absent: accessory muscle use, rales, rhonchi, wheezes - Cardiovascular Cardiovascular exam: Present: RRR, +S1, +S2. Absent: diastolic murmur, gallop, rubs, systolic murmur - GI/Abdominal GI/Abdominal exam: Present: distended, hypoactive bowel sounds. Absent: tenderness - Extremities Exam Extremities exam: Present: warm, radial pulses palpable and symetrical. Absent : calf tenderness, cyanotic, pedal edema - Neurological Exam Neurological exam: Present: alert, oriented X3, no focal deficits. Absent: pronater drift, facial droop, speech deficit - Psychiatric Psychiatric exam: Present: normal affect, normal mood - VTE Documentation of Mechanical Device: Intermittent pneumatic compression device <[email or web address] E - Last Filed: 08/02/16 18:20> Date of Encounter: 08/02/16 - Discharge Diagnosis (1) Acute cholecystitis due to biliary calculus Status: Acute (2) Elevated LFTs Status: Acute (3) Diabetes Status: Acute Qualifiers: Diabetes mellitus type: type 2 Diabetes mellitus complication status: without complication Diabetes mellitus vulcan crewmember insulin use: without vulcan crewmember use Qualified Code(s): E11.9 - Type 2 diabetes mellitus without complications (4) HTN (hypertension) Status: Acute Qualifiers: Hypertension type: essential hypertension Qualified Code(s): I10 - Essential (primary) hypertension (5) Prostate cancer Status: Chronic Date of admission: 07/29/16 21:37 Primary care physician: Flaquito Cm, Consults: 07/29/16 22:08 Consult to Surgery [CONS] Routine Consulting Provider: Tenzin Martinez Reason for Consult: cholecystitis er spoke with sx Call Completed: Yes Hospital course: Mr. Dobbins is a 85 year old male - Time Spent with Patient Total time spent providing and/or coordinating discharge services: - Constitutional Vitals: Temp Pulse Resp BP Pulse Ox 98.7 F 90 17 148/75 95 08/02/16 14:09 08/02/16 14:09 08/02/16 14:09 08/02/16 14:09 08/02/16 14:09 - Attending Attestation I examined this patient and reviewed laboratory, imaging and all diagnostic data. My medical decision-making was reviewed with Dr Desouza - Resident Physician. I agree with the documented findings, disposition and treatment plan as described above
[2016-08-02] MEDS ORDERED: Insulin DETEMIR 100 UNIT/ML X5UNITS SQ ONE (16:49)
[2016-08-02 17:38] LABS: Magnesium 1.7 mg/dL (1.6-2.6); Phosphorous 1.1 mg/dL (2.3-4.7)
[2016-08-02 17:39] LABS: BUN/Creatinine Ratio 11 (6-26); Blood Urea Nitrogen 13 mg/dL (8-26); Calcium 9.1 mg/dL (8.6-10.8); Carbon Dioxide 24 mEq/L (19-29); Chloride 102 mEq/L (98-109); Glucose 244 mg/dL (70-99); Osmolality,Calculated 286 (280-300); Potassium 3.9 mEq/L (3.5-4.5); Sodium 134 mEq/L (136-145); eGFR For African Americans > 60 (> 60); eGFR For Non-African Americans > 60 (> 60)
== END 2016-08-02 20:16 | disposition home or self-care (01) ==
LOC: 3ANU 17:37 → EMEROO 17:37 → 3ANU 22:36
PROVIDERS: ADMIT Internal Medicine; ATTEND Internal Medicine

== ENCOUNTER 2017-05-06 23:25 | Observation (INO) ==
[2017-05-07 00:52] LABS: Hematocrit 35.2 % (37.5-50.1); Hemoglobin 11.2 g/dL (12.9-16.9); Mean Corpuscular HGB Conc 31.8 g/dL (31.6-35.5); Mean Corpuscular Hemoglobin 27.9 pg (28.0-33.3); Mean Corpuscular Volume 87.8 fL (83.0-100.0); Mean Platelet Volume 10.4 fL (9.4-12.4); Platelet Count 220 K/mcL (140-400); Red Blood Count 4.01 M/mcL (4.19-5.50); Red Cell Distribution Width 16.3 % (11.5-14.5)
[2017-05-07 01:10] LABS: BUN/Creatinine Ratio 14 (6-26); Blood Urea Nitrogen 16 mg/dL (8-23); Calcium 9.6 mg/dL (8.6-10.3); Carbon Dioxide 22 mEq/L (23-29); Chloride 103 mEq/L (98-107); Glucose 200 mg/dL (70-105); Osmolality,Calculated 285 (280-300); Potassium 4.4 mEq/L (3.5-5.1); Sodium 134 mEq/L (136-145); eGFR For African Americans > 60 (> 60); eGFR For Non-African Americans 60 (> 60)
[2017-05-07] MEDS: 0.9 % Sodium Chloride 1,000 ML IV SCH (01:10)
--- NOTE | 2017-05-07 03:06 | Emergency Department Note ---
Disposition Clinical Impression: Prostate cancer, Multiple falls, Near syncope Concussion without loss of consciousness Qualifiers: Encounter type: initial encounter Qualified Code(s): S06.0X0A - Concussion without loss of consciousness, initial encounter Disposition: Admitted As Inpatient Condition: Fair Time of Disposition: 04:35 Fall HPI - General Chief Complaint: ED Fall Stated Complaint: fall/headache/htn Time Seen by Provider: 05/07/17 00:00 Source: patient Limitations: altered mental status, age Nursing Notes Reviewed: Yes Vital Signs Reviewed: Yes - History of Present Illness HPI Narrative: 86-year-old male history of hypertension diabetes presents after multiple falls at home, these were unwitnessed he states he did not lose consciousness but his thinks he might have gotten dizzy and passed out, he does take narcotics at home hydrocodone, he has no one else to take care of him, his is elderly and she was unable to lift him so she called EMS. Patient recently had a colonoscopy today with Dr. Peter, and she thinks that this is a side effect from his medication but she also thinks that he has been acting more like he has Alzheimer's. Patient denies chest pain shortness of breath. He states he hit his head but has no bleeding loss of consciousness he does take blood thinner aspirin. Pt Subjective Complaint: fall Onset (ago): hour(s) Fall From: standing Fall Witnessed: no Place Fall Occurred: home Loss of Consciousness: unsure Prolonged Down Time?: unclear Symptoms Prior to Fall: lightheadedness Context: tripped/slipped, history of frequent falls Location of injury: head Severity: mild - Related Data Home Medications Medication Instructions Recorded Confirmed Aspirin 325 mg PO DAILY 11/25/14 05/06/17 Glimepiride [Amaryl] 4 mg PO BID 11/25/14 05/06/17 Metformin [Glucophage] 1,000 mg PO BID 11/25/14 05/06/17 Multivitamin [Multivitamins] 1 tab PO DAILY 11/25/14 05/06/17 Vitamin E 400 unit PO DAILY 11/25/14 05/06/17 Verapamil ER (24 HR) [Calan SR] 240 mg PO DAILY 03/01/15 05/06/17 Tamsulosin [Flomax] 0.4 mg PO DAILY 02/29/16 05/06/17 Calcium/D3/Mag Ox/Cosmetician/Bhaskar/Zn 1 tab PO BID 07/30/16 05/06/17 [Caltrate+D3 Plus Mineral Minis] Pioglitazone [Actos] 45 mg PO 0800 05/06/17 05/06/17 Previous Rx's Medication Instructions Recorded Sennosides/Docusate Sodium [Senna 2 each PO BID #60 tablet 08/02/16 Plus] Ranitidine HCl [Zantac] 150 mg PO BID #60 tablet 02/27/17 Dutasteride [Avodart] 0.5 mg PO DAILY #30 capsule 03/25/17 Venlafaxine [Effexor] 37.5 mg PO DAILY #60 tablet 03/25/17 HYDROcodone/Acet 5/325 mg [[place] 1 tab PO Q6H PRN #60 tab 04/23/17 5-325 mg] Allergies Allergy/AdvReac Type Severity Reaction Status Date / Time No Known Allergies Allergy Verified 05/06/17 09:03 All systems ED: reviewed and negative except as stated. Review of Systems: As Per HPI Constitutional: Reports: weakness. Denies: fever, chills Eyes: Denies: eye pain ENT ED: Denies: ear pain Cardiovascular: Denies: chest pain, palpitations Respiratory: Denies: cough, dyspnea Gastrointestinal: Denies: abdominal pain, nausea Genitourinary: Denies: urgency, dysuria Musculoskeletal: Denies: back pain Integumentary: Denies: rash Neurological: Reports: as per HPI, headache, weakness, confusion. Denies: numbness, paresthesias, abnormal gait Fall PMH - Past Medical History Medical history: Reports: arthritis, cancer, diabetes, GERD, hypertension, renal disease, other Surgical history: Reports: appendectomy, cancer surgery, cholecystectomy, other Psychiatric history: Reports: no psych history - Social History Smoking Status: Never smoker Alcohol use: Reports: none Drug use: Reports: none Physical Exam - General Limitations: no limitations, altered mental status, age General appearance: alert - Head Head exam: atraumatic - Eye Eye exam: Present: normal appearance, PERRL - ENT ENT exam: normal exam - Neck Neck exam: Present: normal inspection, full ROM - Chest Chest inspection: Present: normal inspection, symmetric chest wall rise - Respiratory Respiratory exam: Present: normal lung sounds bilaterally - Cardiovascular Cardiovascular exam: Present: regular rate, normal rhythm - Abdominal Exam Abdominal exam: Present: soft, Non-Tender - Extremities Exam Extremities exam: Present: normal inspection, full ROM - Neurological Exam Neurological exam: Present: alert, CN II-XII intact. Absent: oriented X3 (x2) - Expanded Neurological Exam Patient oriented to: Present: person, place Speech: Present: fluid speech Motor strength - LUE: 5/5 Motor strength - RUE: 5/5 Motor strength - LLE: 5/5 Motor strength - RLE: 5/5 Coma Scale Eye Opening: Spontaneous Coma Scale Motor Response: Obeys Commands Coma Scale Verbal Response: Confused Coma Scale Total: 14 Course Course Narrative: 86-year-old male with a GCS of 14, he is mildly confused otherwise is alert and oriented to self and place has no signs of trauma, some clear history about following versus syncope or near-syncope, his thinks he might been dizzy before he fell, patient denies this he denies any chest pain or shortness of breath but will get a full workup CBC BMP troponin basic lab work EKG and head CT with cervical spine CT done to evaluate forcerebral hemorrhage - Reevaluation(s) Reevaluation #1: Pt admitted to the medicine service for frequent falls, concussion, unable to ambulate and he is still moderately confused at believe he is postconcussive, syndrome, the patient also has no resources at home and he has an elderly who cannot lift him, 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 - Lab Data Lab results reviewed: Yes I reviewed the patient's lab results. Result diagrams: 05/07/17 00:44 05/07/17 00:44 Lab Results 05/07/17 05/07/17 05/07/17 Range/Units 00:44 00:44 03:30 WBC 6.6 D (4.3-11.1) K/mcL RBC 4.01 L (4.19-5.50) M/mcL Hgb 11.2 L (12.9-16.9) g/dL Hct 35.2 L (37.5-50.1) % MCV 87.8 (83.0-100.0) fL MCH 27.9 L (28.0-33.3) pg MCHC 31.8 (31.6-35.5) g/dL RDW 16.3 H (11.5-14.5) % Plt Count 220 (140-400) K/mcL MPV 10.4 (9.4-12.4) fL Sodium 134 L (136-145) mEq/L Potassium 4.4 (3.5-5.1) mEq/L Chloride 103 (98-107) mEq/L Carbon Dioxide 22 L (23-29) mEq/L BUN 16 (8-23) mg/dL Creatinine 1.16 (0.70-1.30) mg/dL Est GFR ( Amer) > 60 (> 60) Est GFR (Non-Af Amer) 60 (> 60) BUN/Creatinine Ratio 14 (6-26) Glucose 200 H (70-105) mg/dL Calculated Osmolality 285 (280-300) Calcium 9.6 (8.6-10.3) mg/dL Troponin I (< 0.04) ng/mL Urine Color Yellow (Yellow) Urine Clarity Clear (Clear) Urine pH 6.5 (5.0-8.0) pH Units Ur Specific Lyman 1.011 (1.010-1.025) Urine Protein 100 H (Neg-Trace) mg/dL Urine Glucose (UA) Normal (Normal) mg/dL Urine Ketones Negative (Negative) mg/dL Urine Blood Small H (Negative) Urine Nitrite Negative (Negative) Urine Bilirubin Negative (Negative) Urine Urobilinogen Normal (Normal) mg/dL Ur Leukocyte Esterase Negative (Negative) Urine Microscopic RBC 3-5 H (0-3) per hpf Urine Microscopic WBC 0-3 (0-3) per hpf Ur Squamous Epith Cells None Seen (None-Few) per lpf Urine Bacteria None Seen (None-Few) per hpf Hyaline Casts None Seen (None-Few) per lpf Ur Culture Indicated? NO (NO) 05/07/17 Range/Units 03:53 WBC (4.3-11.1) K/mcL RBC (4.19-5.50) M/mcL Hgb (12.9-16.9) g/dL Hct (37.5-50.1) % MCV (83.0-100.0) fL MCH (28.0-33.3) pg MCHC (31.6-35.5) g/dL RDW (11.5-14.5) % Plt Count (140-400) K/mcL MPV (9.4-12.4) fL Sodium (136-145) mEq/L Potassium (3.5-5.1) mEq/L Chloride (98-107) mEq/L Carbon Dioxide (23-29) mEq/L BUN (8-23) mg/dL Creatinine (0.70-1.30) mg/dL Est GFR ( Amer) (> 60) Est GFR (Non-Af Amer) (> 60) BUN/Creatinine Ratio (6-26) Glucose (70-105) mg/dL Calculated Osmolality (280-300) Calcium (8.6-10.3) mg/dL Troponin I < 0.03 (< 0.04) ng/mL Urine Color (Yellow) Urine Clarity (Clear) Urine pH (5.0-8.0) pH Units Ur Specific Lyman (1.010-1.025) Urine Protein (Neg-Trace) mg/dL Urine Glucose (UA) (Normal) mg/dL Urine Ketones (Negative) mg/dL Urine Blood (Negative) Urine Nitrite (Negative) Urine Bilirubin (Negative) Urine Urobilinogen (Normal) mg/dL Ur Leukocyte Esterase (Negative) Urine Microscopic RBC (0-3) per hpf Urine Microscopic WBC (0-3) per hpf Ur Squamous Epith Cells (None-Few) per lpf Urine Bacteria (None-Few) per hpf Hyaline Casts (None-Few) per lpf Ur Culture Indicated? (NO) - Radiology Data Radiology results reviewed: Yes I reviewed the patient's radiology results. Cervical Spine CT 05/07/17 00:27 IMPRESSION: No definite evidence of an acute injury on this study degraded by motion. D/ / Yogesh Golden MD / Yogesh Golden MD Interpreting Provider: Yogesh Golden MD Head CT 05/07/17 00:27 IMPRESSION: No definite acute intracranial abnormality on this motion degraded study. Chronic small vessel ischemic white matter disease. D/ / Yogesh Golden MD / Yogesh Golden MD Interpreting Provider: Yogesh Golden MD - EKG Data EKG attestation: Yes I reviewed and interpreted this EKG. EKG shows normal: sinus rhythm Rate: normal Rhythm: NSR (1 13 bpm HI 100 202 QRS [address] QTC [address] segment elevations or depressions right bundle branch block) [place]/QRS: RBBB Attestation Statement - Attestation Attestation: DR Rios note: Pt seen in conjunction w/ resident Dr. Espana; please see his charting for complete documentation; I agree w/ pt's treatment and disposition; Please see his charting for complete documentation; face to face time spent w/ pt; ct scan reviewd; no external signs of injury; admitted in stable condition to the hospitalist due to alterd mental status and generalized weakness; colonoscopy was earlier today;
[2017-05-07 04:04] LABS: Bilirubin,Urine Negative (Negative); Blood,Urine Small (Negative); Clarity,Urine Clear (Clear); Color,Urine Yellow (Yellow); Glucose,Urine (UA) Normal (Normal); Ketones,Urine Negative (Negative); Leukocyte Esterase,Urine Negative (Negative); Nitrite,Urine Negative (Negative); PH,Urine 6.5 pH Units (5.0-8.0); Protein,Urine 100 mg/dL (Neg-Trace); Specific Gravity,Urine 1.011 (1.010-1.025); Urobilinogen,Urine Normal (Normal)
[2017-05-07 04:13] LABS: Bacteria,Urine None Seen per hpf (None-Few); Hyaline Casts,Urine None Seen per lpf (None-Few); Squamous Epithelial Cell,Urine None Seen per lpf (None-Few); WBC,Urine 0-3 per hpf (0-3)
[2017-05-07] MEDS ORDERED: *HR* OxyCODONE Immed Rel 5 MG TABLET PO PRN (08:15)
[2017-05-07] MEDS ORDERED: Naloxone 0.4 MG/ML INJ IVP PRN (08:15)
[2017-05-07] MEDS ORDERED: Ondansetron 4 MG/2 ML VIAL IVP PRN (08:15)
[2017-05-07] MEDS ORDERED: Acetaminophen 325 MG TABLET PO PRN (08:18)
[2017-05-07 08:57] LABS: Hemoglobin A1C 7.6 %
--- NOTE | 2017-05-07 09:25 | Internal Med History&Physical ---
Date of Encounter: 05/07/17 Time of Encounter: 09:24 Assessment and Plan (1) Multiple falls Current visit: Yes Status: Acute Gen. recurrent falls, not preceded by any cardiac, neurologic, chest or abdominal symptoms. No trauma from most recent fall which patient states was yesterday patient will be evaluated by PT/OT-consulted Fall precautions (2) Prostate cancer Current visit: Yes Status: Chronic Chronic, continue home meds (3) Diabetes Current visit: Yes Status: Chronic Controlled for age, A1C 7.6 We will continue patient's home meds Measure fingersticks with meals and at bedtime ADA diet. Qualifiers: Diabetes mellitus type: type 2 Diabetes mellitus complication status: without complication Diabetes mellitus care home insulin use: without care management specialist use Qualified Code(s): E11.9 - Type 2 diabetes mellitus without complications (4) DVT prophylaxis Current visit: Yes Status: Acute SQ heparin (5) HTN (hypertension) Current visit: Yes Status: Chronic Controlled on admission, now controlled at time will review. Continue home medications. Adjust when necessary. Qualifiers: Hypertension type: essential hypertension Qualified Code(s): I10 - Essential (primary) hypertension Internal Medicine - H&P: HPI Chief complaint: Recurrent falls Admitted From: Home Plans for Post Hospital Care: Home History of present illness: Mr. Dobbins is a 86 year old male with PMH of HTN, Prostate CA, DM, "Some kidney disease Patient is slow to response but able to give a history There is no family member at the bedside to corroborate patient's history. The patient reports he is in the hospital because his blood pressure is uncontrolled. He further states that since his colonoscopy, he has been having recurrent falls at home. The patient denies any preceding chest pain, palpitations, dizziness prior to fall. He reports that he has been losing his balance, and feels unstable on his feet. He denies paresthesias, he denies confusion. He states that he has just had a colonoscopy recently, and his medications have not been stable since then. Hence his uncontrolled blood pressure. He denies any injury during any of this falls. He denies any history of forgetfulness. Denies nausea, vomiting, chest pain, shortness of breath, abdominal pain, no change in bowel habits. At the time of review, the patient has no current complaints. Per EMR, ER team states history of forgetfulness per patient's . She is not currently at the bedside to corroborate this history. He is alert and oriented to month and year, place and person On presentation to the ER the patient's blood pressure was systolic 210, diastolic 102, other vital signs have been stable. Currently blood pressure is controlled. Other workup including chemistry, urine analysis, CAT scan of the cervical spine and CAT scan of the head negative with no acute findings. Hyponatremia is pseudo-hyponatremia from elevated glucose. His EKG shows sinus tachycardia with a right bundle branch block and left anterior fascicular block, these at the same as in July 2016. He is otherwise clinically stable. The patient will be admitted to observation, with fall precautions, physical therapy and occupational therapy review, and continuation of his home medications. Past Med Surg Social Fam HX - Past Medical History Medical history: arthritis, cancer, diabetes, GERD, hypertension, renal disease , other Psychiatric history: no psych history - Past Surgical History Surgical History: appendectomy, cancer surgery, cholecystectomy, other - Social History Smoking Status: Never smoker Smokeless Tobacco Status: No Alcohol use: none Drug use: none Internal Medicine - H&P: Meds Aspirin 325 mg PO DAILY 11/25/14 [History] Glimepiride [Amaryl] 4 mg PO BID 11/25/14 [History] Multivitamin [Multivitamins] 1 tab PO DAILY 11/25/14 [History] Vitamin E 400 unit PO DAILY 11/25/14 [History] Verapamil ER (24 HR) [Calan SR] 240 mg PO DAILY 03/01/15 [History] Tamsulosin [Flomax] 0.4 mg PO DAILY 02/29/16 [History] Calcium/D3/Mag Ox/Social Media Senior Associate/Bhaskar/Zn [Caltrate+D3 Plus Mineral Minis] 1 tab PO BID [History] Sennosides/Docusate Sodium [Senna Plus] 2 each PO BID #60 tablet 08/02/16 [Rx] Ranitidine HCl [Zantac] 150 mg PO BID #60 tablet 02/27/17 [Rx] Dutasteride [Avodart] 0.5 mg PO DAILY #30 capsule 03/25/17 [Rx] HYDROcodone/Acet 5/325 mg [[place] 5-325 mg] 1 tab PO Q6H PRN #60 tab 04/23/17 [Rx ] Pioglitazone [Actos] 45 mg PO 0800 05/06/17 [History] Metformin HCl [Metformin HCl ER] 1,000 mg PO BID 05/07/17 [History] Venlafaxine [Effexor] 37.5 mg PO BID 05/07/17 [History] 3 Allergy/AdvReac Type Severity Reaction Status Date / Time No Known Allergies Allergy Verified 05/06/17 09:03 All Systems PM: A 10-system review of systems was performed and is negative for pertinent findings except as documented above in the HPI. - Constitutional Constitutional: no chills, no fever(s), no night sweats - EENT Eyes: no change in vision, no discharge, no pain, no photophobia Ears: no ear discharge, no ear pain, no tinnitus Nose, mouth and throat: no dysphagia, no nasal discharge, no neck pain, no sore throat - Cardiovascular Cardiovascular ROS IM: no chest pain, no diaphoresis, no dyspnea, no lightheadedness, no palpitations, no syncope - Respiratory Respiratory: no cough, no dyspnea, no wheezing, no excessive phlegm production - Gastrointestinal Gastrointestinal: no abdominal pain, no diarrhea, no hematemesis, no hematochezia, no melena, no nausea, no vomiting - Musculoskeletal Musculoskeletal ROS IM: as per HPI - Integumentary Integumentary IM: no rash, no unusual bruising - Neurological Neurological ROS: no confusion, no convulsions, no focal weakness, no numbness, no tingling, no tremor(s) - Hematologic/Lymphatic Hematologic/Lymphatic: no easy bruising - Constitutional Vitals: Temp Pulse Resp BP Pulse Ox 99.4 F 95 18 154/94 96 05/06/17 23:28 05/07/17 06:58 05/07/17 06:58 05/07/17 06:58 05/07/17 06:58 General appearance: Present: A&O X 3, pleasant, no acute distress, obese - Head Head exam: Present: atraumatic Additional comments: No visible hematomas, no scalp injury. - Eye Eye exam: Present: PERRL, conjuntiva pink, sclera anicteric Pupils: Present: PERRL - Neck Neck exam general surgery: Present: supple, trachea midline. Absent: lymphadenopathy Additional comments: No cervical spine tenderness. - Respiratory Respiratory exam: Present: CTAB. Absent: accessory muscle use, rales, rhonchi, wheezes - Cardiovascular Cardiovascular exam: Present: RRR, +S1, +S2. Absent: diastolic murmur, gallop, rubs, systolic murmur - GI/Abdominal GI/Abdominal exam: Present: normal bowel sounds, soft, no peritoneal signs. Absent: distended, tenderness - Extremities Exam Extremities exam: Present: warm, radial pulses palpable and symmetrical. Absent : calf tenderness, cyanotic, pedal edema - Neurological Exam Neurological exam: Present: alert, CN II-XII intact, oriented X3, no focal deficits. Absent: pronater drift, facial droop, speech deficit - Skin Skin exam: Present: dry, intact Internal Med - H&P Results - Labs CBC & Chem 7: 05/07/17 00:44 05/07/17 00:44
[2017-05-07] MEDS: Multivit/Ca/Min/Fe/FA 1 TAB TABLET PO SCH (09:35)
[2017-05-07] MEDS: Verapamil ER (24 HR) 240 MG TABLET.ER PO SCH (09:35)
[2017-05-07] MEDS: Sennosides/Docusate Sodium TABLET PO SCH ×2 (09:35→20:00)
[2017-05-07] MEDS: Finasteride 5 MG TABLET PO SCH (09:35)
[2017-05-07] MEDS: *HR* Glimepiride 4 MG TABLET PO SCH ×2 (09:35→16:53)
[2017-05-07] MEDS: [UNRECOGNIZED DRUG - OTHER] PO SCH ×2 (12:15→20:00)
[2017-05-07] MEDS: COP PO SCH ×2 (12:15→20:00)
[2017-05-07] MEDS: MAG OX PO SCH ×2 (12:15→20:00)
[2017-05-07] MEDS: MANG PO SCH ×2 (12:15→20:00)
[2017-05-07] MEDS: D3 PO SCH ×2 (12:15→20:00)
[2017-05-07] MEDS: CALCIUM PO SCH ×2 (12:15→20:00)
[2017-05-07] MEDS: *HR* Metformin 500 MG TABLET PO SCH ×2 (12:21→16:53)
[2017-05-07] MEDS: Aspirin 325 MG TABLET PO SCH (12:21)
[2017-05-07] MEDS: Famotidine 20 MG TABLET PO SCH ×2 (12:21→20:00)
[2017-05-08] MEDS: 0.9 % Sodium Chloride 1,000 ML IV SCH (00:37)
[2017-05-08 04:57] LABS: Basophils % 0.5 %; Eosinophils # 0.1 K/mcL (0.0-0.6); Eosinophils % 2.5 %; Hematocrit 31.9 % (37.5-50.1); Hemoglobin 10.2 g/dL (12.9-16.9); Immature Granulocytes % 0.3 % (0-4); Lymphocytes # 1.1 K/mcL (0.6-4.6); Lymphocytes % 26.4 %; Mean Corpuscular Hemoglobin 27.9 pg (28.0-33.3); Mean Corpuscular Volume 87.4 fL (83.0-100.0); Mean Platelet Volume 10.8 fL (9.4-12.4); Monocytes # 0.4 K/mcL (0.0-1.3); Monocytes % 11.1 %; Neutrophils # 2.4 K/mcL (1.6-8.9); Platelet Count 194 K/mcL (140-400); Red Blood Count 3.65 M/mcL (4.19-5.50); Red Cell Distribution Width 16.6 % (11.5-14.5); Segmented Neutrophils % 59.2 %
[2017-05-08 05:12] LABS: BUN/Creatinine Ratio 15 (6-26); Blood Urea Nitrogen 18 mg/dL (8-23); Calcium 9.1 mg/dL (8.6-10.3); Carbon Dioxide 26 mEq/L (23-29); Chloride 108 mEq/L (98-107); Glucose 54 mg/dL (70-105); Osmolality,Calculated 287 (280-300); Potassium 3.7 mEq/L (3.5-5.1); Sodium 139 mEq/L (136-145); eGFR For African Americans > 60 (> 60); eGFR For Non-African Americans 57 (> 60)
[2017-05-08] MEDS ORDERED: *HR* Pioglitazone 45 MG TABLET PO SCH (08:00)
--- NOTE | 2017-05-08 08:17 | Electrocardiograph Report ---
[address] [address] Test Date: 2017-05-07 Pat Name: Adan Dobbins Department: 104 Room: 3B Gender: M Manager [employer]: : 1930 Requested By: Jose Espana Order Number: [id number] Reading MD: Mark Flood MD Measurements Intervals Golden Rate: 113 P: -48 NH: 202 QRS: -56 QRSD: 150 T: 14 QT: 370 QTc: 437 Interpretive Statements SINUS TACHYCARDIA RIGHT BUNDLE BRANCH BLOCK LEFT ANTERIOR FASCICULAR BLOCK BASELINE ARTIFACT Electronically Signed On 05-08-2017 8:16:00 EST by Mark Flood MD
--- NOTE | 2017-05-08 08:39 | Internal Med Progress Note ---
Date of Encounter: 05/08/17 Time of Encounter: 08:36 - Assessment and plan (1) Multiple falls Current Visit: Yes Status: Acute Assessment and plan: presented with multiple falls at home. Appears somewhat chronic; patient reports ongoing issue for the last year (has seen outpatient PT for falls in the past). Head CT, C-spine CT non-acute. Etiology unknown at this time; check orthostatics, carotids, echo and brain MRI. Continue falls precaution, PT/OT pending. (2) Diabetes Current Visit: Yes Status: Chronic Assessment and plan: per hx. Hgb A1c 7.6%. Was hypoglycemic with blood sugars in the 50s on arrival. Likely secondary to taking oral hypoglycemics and not eating on day of presentation. Of note patient is on 3 oral hypoglycemics at home; hypoglycemia could be contributing to falls and generalized weakness. Holding home oral hypoglycemics. SSI. Monitor blood sugar and titrate PRN Qualifiers: Diabetes mellitus type: type 2 Diabetes mellitus complication status: without complication Diabetes mellitus longterm insulin use: without long term care phlebotomist use Qualified Code(s): E11.9 - Type 2 diabetes mellitus without complications (3) HTN (hypertension) Current Visit: Yes Status: Chronic Assessment and plan: per hx. BP uncontrolled on arrival with SBP's in 200s. Continue home BP medication. Monitor BP and titrate PRN. Check orthostatics Qualifiers: Hypertension type: essential hypertension Qualified Code(s): I10 - Essential (primary) hypertension (4) Prostate cancer Current Visit: Yes Status: Chronic Assessment and plan: per hx. Follows with Dr. Cramer. Currently receiving Lupron IM every 12 weeks. Can follow up with oncology outpatient as previously planned (5) DVT prophylaxis Current Visit: Yes Status: Acute Assessment and plan: heparin - Subjective Interval history: Seen and examined at bedside. Patient is new to me, information obtained from chart review and patient report. Patient says he feels about the same, overall little better. He reports having a colonoscopy on Saturday and he suspects he was dehydrated which is contributing to his falls. Denies vertigo, no numbness tingling no slurred speech. - Constitutional Vitals: Temp Pulse Resp BP Pulse Ox 98.1 F 81 20 154/87 95 05/08/17 07:56 05/08/17 07:56 05/08/17 07:56 05/08/17 07:56 05/08/17 07:56 General appearance: Present: A&O X 3 (slow to respond), pleasant, no acute distress, obese - Head Head exam: Present: atraumatic, normocephalic - Eye Eye exam: Present: PERRL, conjuntiva pink, sclera anicteric Pupils: Present: PERRL - Neck Neck exam general surgery: Present: supple, trachea midline. Absent: lymphadenopathy - Respiratory Respiratory exam: Present: CTAB. Absent: accessory muscle use, rales, rhonchi, wheezes - Cardiovascular Cardiovascular exam: Present: RRR, +S1, +S2. Absent: diastolic murmur, gallop, rubs, systolic murmur - GI/Abdominal GI/Abdominal exam: Present: normal bowel sounds, soft, no peritoneal signs. Absent: distended, tenderness - Extremities Exam Extremities exam: Present: warm, radial pulses palpable and symmetrical. Absent : calf tenderness, cyanotic, pedal edema - Neurological Exam Neurological exam: Present: CN II-XII intact, oriented X3, no focal deficits. Absent: pronater drift, facial droop, speech deficit - Skin Skin exam: Present: dry, intact Internal Medicine: Result - Labs CBC & Chem 7: 05/08/17 04:01 05/08/17 04:01 Labs: Short CBC 05/08/17 Range/Units 04:01 WBC 4.0 L (4.3-11.1) K/mcL Hgb 10.2 L (12.9-16.9) g/dL Hct 31.9 L (37.5-50.1) % Plt Count 194 (140-400) K/mcL Neutrophils # 2.4 (1.6-8.9) K/mcL BMP 05/08/17 04:01 Sodium 139 Potassium 3.7 Chloride 108 H Carbon Dioxide 26 BUN 18 Creatinine 1.22 Glucose 54 L Calcium 9.1 Consult Discharge Plan - Plan Referrals: Flaquito Cm DO [Primary Care Provider] -
[2017-05-08] MEDS ORDERED: *HR* Dextrose 50 % in Water (Syg) 50 ML SYRINGE IVP PRN (08:46)
[2017-05-08] MEDS ORDERED: Dextrose Gel 15 GM/37.5 ML TUBE PO PRN ×2 (08:46)
[2017-05-08] MEDS ORDERED: D5% in Water 1,000 ML IVC PRN (08:46)
[2017-05-08] MEDS: Verapamil ER (24 HR) 240 MG TABLET.ER PO SCH (09:49)
[2017-05-08] MEDS: Finasteride 5 MG TABLET PO SCH (09:50)
[2017-05-08] MEDS: Famotidine 20 MG TABLET PO SCH (09:50)
[2017-05-08] MEDS: Multivit/Ca/Min/Fe/FA 1 TAB TABLET PO SCH (09:50)
[2017-05-08] MEDS: Sennosides/Docusate Sodium TABLET PO SCH (09:50)
[2017-05-08] MEDS: Aspirin 325 MG TABLET PO SCH (09:50)
[2017-05-08] MEDS: COP PO SCH (09:51)
[2017-05-08] MEDS: CALCIUM PO SCH (09:51)
[2017-05-08] MEDS: MAG OX PO SCH (09:51)
[2017-05-08] MEDS: D3 PO SCH (09:51)
[2017-05-08] MEDS: [UNRECOGNIZED DRUG - OTHER] PO SCH (09:51)
[2017-05-08] MEDS: MANG PO SCH (09:51)
[2017-05-08] MEDS: *HR* Glimepiride 4 MG TABLET PO SCH (10:25)
[2017-05-08] MEDS: *HR* Metformin 500 MG TABLET PO SCH (10:26)
[2017-05-08] MEDS ORDERED: Insulin LISPRO 300 UNITS/3 ML VIAL SQ SCH ×2 (11:30→21:00)
[2017-05-08 12:05] VITALS: BP 189/79
--- NOTE | 2017-05-09 07:40 | Discharge Summary ---
Date of Encounter: 05/08/17 Time of Encounter: 16:00 - Discharge Diagnosis (1) Multiple falls Priority: Primary Status: Acute Comments: presented with multiple falls at home. Appears somewhat chronic; patient reports ongoing issue for the last year (has seen outpatient PT for falls in the past). Head CT, C-spine CT non-acute. Of note, patient reported falling and hitting head on concrete approximately 1 week prior to admission. Brain MRI showed small acute right frontal subdural hematoma measuring 3 mm, no associated mass effect and moderate small foci of acute subarachnoid hemorrhage over the posterior right frontal and right parietal lobes. Case was discussed with neurology who recommended transfer to tertiary hospital where neurosurgery was available. Patient was discharged to [facility] (2) Diabetes Priority: Primary Status: Chronic Comments: per hx. Hgb A1c 7.6%. Was hypoglycemic with blood sugars in the 50s on arrival. Likely secondary to taking oral hypoglycemics and not eating on day of presentation. Of note patient is on 3 oral hypoglycemics at home; hypoglycemia could be contributing to falls and generalized weakness. Blood sugar improved with IV dextrose. Continue holding home oral hypoglycemics. SSI. Monitor blood sugar and titrate PRN Qualifiers: Diabetes mellitus type: type 2 Diabetes mellitus complication status: without complication Diabetes mellitus terminal carman insulin use: without terminal carman use Qualified Code(s): E11.9 - Type 2 diabetes mellitus without complications (3) HTN (hypertension) Priority: Primary Status: Chronic Comments: per hx. BP uncontrolled on arrival with SBP's in 200s. BP improved with resuming home BP medications however SBP and 180s just prior to transfer and received IV hydralazine. Goal SBP less than 160 Qualifiers: Hypertension type: essential hypertension Qualified Code(s): I10 - Essential (primary) hypertension (4) Prostate cancer Priority: Secondary Status: Chronic Comments: per hx. Follows with Dr. Cramer. Currently receiving Lupron IM every 12 weeks. Can follow up with oncology outpatient as previously planned - Discharge Medications Home Medications: Aspirin 325 mg PO DAILY 11/25/14 [History] Glimepiride [Amaryl] 4 mg PO BID 11/25/14 [History] Multivitamin [Multivitamins] 1 tab PO DAILY 11/25/14 [History] Vitamin E 400 unit PO DAILY 11/25/14 [History] Verapamil ER (24 HR) [Calan SR] 240 mg PO DAILY 03/01/15 [History] Tamsulosin [Flomax] 0.4 mg PO DAILY 02/29/16 [History] Calcium/D3/Mag Ox/[employer] Supervisor/Bhaskar/Zn [Caltrate+D3 Plus Mineral Minis] 1 tab PO BID [History] Sennosides/Docusate Sodium [Senna Plus] 2 each PO BID #60 tablet 08/02/16 [Rx] Ranitidine HCl [Zantac] 150 mg PO BID #60 tablet 02/27/17 [Rx] Dutasteride [Avodart] 0.5 mg PO DAILY #30 capsule 03/25/17 [Rx] HYDROcodone/Acet 5/325 mg [[place] 5-325 mg] 1 tab PO Q6H PRN #60 tab 04/23/17 [Rx ] Pioglitazone [Actos] 45 mg PO 0800 05/06/17 [History] Metformin HCl [Metformin HCl ER] 1,000 mg PO BID 05/07/17 [History] Venlafaxine [Effexor] 37.5 mg PO BID 05/07/17 [History] Allergies/Adverse Reactions: 3 Allergy/AdvReac Type Severity Reaction Status Date / Time No Known Allergies Allergy Verified 05/06/17 09:03 Procedures/tests Complete & Pending: Procedures Performed prior 72 hours Category Date Time Status MR head/brain wo con [MR] Routine MRI 05/08/17 08:45 Completed Date of admission: 05/07/17 04:11 Primary care physician: Flaquito Cm, Consults: 05/07/17 08:17 Consult to Occupational Therapy [CONS] Routine Comment: Evaluate, develop and implement POC Reason for Consult: Fall Consult to Physical Therapy [CONS] Routine Comment: Evaluate, develop and implement POC Reason for Consult: Fall 05/07/17 08:20 Consult to Handwriting Expert [CONS] Routine Reason for SW Consult: Placement Discharging clinician: Xiomy Piedra Anticipated date of discharge: 05/08/17 - Patient Status Disposition: Transfer Critical Access Hosp Condition: Good Functional capacity at discharge: uses cane/walker Overall status at discharge: patient is progressing back to baseline - Discharge Instructions Follow Up With: Flaquito Cm DO [Primary Care Provider] - Theresa Dos Santos MD [Partnered Physician] - 05/15/17 1:20 pm - Diet and Activity Activity: as per physical therapy Diet: diabetic diet Interval History: Received a call from [facility] stating that brain MRI showed small right frontal lobe subdural hematoma with associated subarachnoid hemorrhage. Discussed with patient and , patient is a full code and no neurosurgery available at [place]. Decision made to transfer to [facility]. Patient and agreeable to plan. Hospital course: See assessment and plan for hospital course - Time Spent with Patient Total time spent providing and/or coordinating discharge services: Greater than 30 minutes (54 minutes was spent on discharge including arranging transfer to [facility], conferring with attending physician and updating patient/.) - Constitutional Vitals: Temp Pulse Resp BP Pulse Ox 98.0 F 71 20 189/79 99 05/08/17 12:00 05/08/17 12:00 05/08/17 12:00 05/08/17 12:00 05/08/17 12:00 General appearance: Present: A&O X 3 (slow to respond), pleasant, no acute distress, obese - Head Head exam: Present: atraumatic, normocephalic - Eye Eye exam: Present: PERRL, conjuntiva pink, sclera anicteric Pupils: Present: PERRL - Neck Neck exam general surgery: Present: supple, trachea midline. Absent: lymphadenopathy - Respiratory Respiratory exam: Present: CTAB. Absent: accessory muscle use, rales, rhonchi, wheezes - Cardiovascular Cardiovascular exam: Present: RRR, +S1, +S2. Absent: diastolic murmur, gallop, rubs, systolic murmur - GI/Abdominal GI/Abdominal exam: Present: normal bowel sounds, soft, no peritoneal signs. Absent: distended, tenderness - Extremities Exam Extremities exam: Present: warm, radial pulses palpable and symmetrical. Absent : calf tenderness, cyanotic, pedal edema - Neurological Exam Neurological exam: Present: CN II-XII intact, oriented X3, no focal deficits. Absent: pronater drift, facial droop, speech deficit - Skin Skin exam: Present: dry, intact
== END 2017-05-08 17:17 | disposition critical access hospital (66) ==
LOC: EMEROO 23:25 → 2SOUTHHOLD 23:25 → 3BNU 05-07 11:31
PROVIDERS: ADMIT Internal Medicine; ATTEND Registered Nurse

== ENCOUNTER 2017-07-07 12:28 | Observation (INO) ==
--- NOTE | 2017-07-07 12:32 | Emergency Department Note ---
Disposition Clinical Impression: Prostate cancer, Near syncope, Multiple falls, Weakness Disposition: Admitted As Inpatient Condition: Fair General Adult HPI - General Chief complaint: ED Fall Stated complaint: fall this am/weakness for several days Time Seen by Provider: 07/07/17 12:30 - Related Data Home Medications Medication Instructions Recorded Confirmed Aspirin 325 mg PO DAILY 11/25/14 07/07/17 Glimepiride [Amaryl] 4 mg PO BID 11/25/14 07/07/17 Multivitamin [Multivitamins] 1 tab PO DAILY 11/25/14 07/07/17 Vitamin E 400 unit PO DAILY 11/25/14 07/07/17 Verapamil ER (24 HR) [Calan SR] 360 mg PO DAILY 03/01/15 07/07/17 Tamsulosin [Flomax] 0.4 mg PO DAILY 02/29/16 07/07/17 Calcium/D3/Mag Ox/Professional Wrestler/Bhaskar/Zn 1 tab PO BID 07/30/16 07/07/17 [Caltrate+D3 Plus Mineral Minis] Pioglitazone [Actos] 45 mg PO DAILY 05/06/17 07/07/17 Metformin HCl [Metformin HCl ER] 1,000 mg PO BID 05/07/17 07/07/17 Venlafaxine [Effexor] 37.5 mg PO BID 05/07/17 07/07/17 Iron Polysaccharide Complex 150 mg PO DAILY 06/14/17 07/07/17 [Ferrex 150] Metoprolol [Lopressor] 25 mg PO BID 06/14/17 07/07/17 Dutasteride [Dutasteride] 0.5 mg PO DAILY 07/07/17 07/07/17 Sennosides/Docusate Sodium [Senna 2 tab PO BID 07/07/17 07/07/17 Plus] Previous Rx's Medication Instructions Recorded HYDROcodone/Acet 5/325 mg [[place] 1 tab PO Q6H PRN #60 tab 04/23/17 5-325 mg] Ranitidine HCl [Zantac] 150 mg PO BID #180 tablet 06/20/17 Allergies Allergy/AdvReac Type Severity Reaction Status Date / Time No Known Allergies Allergy Verified 07/07/17 12:31 Past Medical History - Past Medical History Medical history: Reports: arthritis, cancer, diabetes, GERD, hypertension, renal disease, other Surgical history: Reports: appendectomy, cancer surgery, cholecystectomy, other Psychiatric history: Reports: no psych history - Social History Smoking Status: Never smoker Smokeless Tobacco Status: No Alcohol use: Reports: none Drug use: Reports: none Course Vital Signs Temperature 98 F 07/07/17 12:35 Pulse Rate 93 07/07/17 12:35 Respiratory Rate 20 07/07/17 12:35 Blood Pressure 163/98 07/07/17 12:35 O2 Sat by Pulse Oximetry 96 07/07/17 12:35 Temperature 97.6 F 07/07/17 16:21 Pulse Rate 82 07/07/17 16:21 Respiratory Rate 20 07/07/17 16:21 Blood Pressure 168/100 07/07/17 16:21 O2 Sat by Pulse Oximetry 98 07/07/17 16:21 Oxygen Delivery Oxygen Delivery Room Air Medical Decision Making - Lab Data Result diagrams: 07/07/17 12:32 07/07/17 12:34 Lab Results 07/07/17 07/07/17 07/07/17 Range/Units 12:32 12:32 12:34 WBC 5.8 (4.3-11.1) K/mcL RBC 3.82 L (4.19-5.50) M/mcL Hgb 10.2 L (12.9-16.9) g/dL Hct 33.5 L (37.5-50.1) % MCV 87.7 (83.0-100.0) fL MCH 26.7 L (28.0-33.3) pg MCHC 30.4 L (31.6-35.5) g/dL RDW 17.1 H (11.5-14.5) % Plt Count 294 (140-400) K/mcL MPV 9.7 (9.4-12.4) fL Immature Gran % 0.3 (0-4) % Seg Neutrophils % 71.0 % Lymphocytes % 18.2 % Monocytes % 9.1 % Eosinophils % 1.2 % Basophils % 0.2 % Neutrophils # 4.1 (1.6-8.9) K/mcL Lymphocytes # 1.1 (0.6-4.6) K/mcL Monocytes # 0.5 (0.0-1.3) K/mcL Eosinophils # 0.1 (0.0-0.6) K/mcL Basophils # 0.0 (0.0-0.2) K/mcL PT 12.3 H (9.4-12.1) Seconds INR 1.1 APTT 32.1 (26.0-36.0) Seconds Sodium 135 L (136-145) mEq/L Potassium 4.2 (3.5-5.1) mEq/L Chloride 102 (98-107) mEq/L Carbon Dioxide 27 (23-29) mEq/L BUN 14 (8-23) mg/dL Creatinine 1.04 (0.70-1.30) mg/dL Est GFR ( Amer) > 60 (> 60) Est GFR (Non-Af Amer) > 60 (> 60) BUN/Creatinine Ratio 13 (6-26) Glucose 180 H (70-105) mg/dL POC Glucose (58-89) Calculated Osmolality 285 (280-300) Lactic Acid (0.5-2.2) mmol/L Calcium 10.0 (8.6-10.3) mg/dL Phosphorus 2.8 (2.7-4.5) mg/dL Magnesium 1.6 (1.6-2.6) mg/dL Total Bilirubin 0.4 (0.3-1.0) mg/dL AST 12 L (13-39) Units/L ALT 11 (7-52) Units/L Alkaline Phosphatase 91 (34-104) Units/L Ammonia (16-53) mcmol/L Troponin I (< 0.04) ng/mL Serum Total Protein 7.3 (6.4-8.9) g/dL Albumin 3.4 L (3.5-5.7) g/dL Globulin 3.9 H (2.4-3.5) g/dL Albumin/Globulin Ratio 0.9 L (1.1-2.2) Urine Color (Yellow) Urine Clarity (Clear) Urine pH (5.0-8.0) pH Units Ur Specific [place] (1.010-1.025) Urine Protein (Neg-Trace) mg/dL Urine Glucose (UA) (Normal) mg/dL Urine Ketones (Negative) mg/dL Urine Blood (Negative) Urine Nitrite (Negative) Urine Bilirubin (Negative) Urine Urobilinogen (Normal) mg/dL Ur Leukocyte Esterase (Negative) Urine Microscopic RBC (0-3) per hpf Urine Microscopic WBC (0-3) per hpf Ur Squamous Epith Cells (None-Few) per lpf Urine Bacteria (None-Few) per hpf Hyaline Casts (None-Few) per lpf Ur Culture Indicated? (NO) 07/07/17 07/07/17 07/07/17 Range/Units 12:35 12:56 13:00 WBC (4.3-11.1) K/mcL RBC (4.19-5.50) M/mcL Hgb (12.9-16.9) g/dL Hct (37.5-50.1) % MCV (83.0-100.0) fL MCH (28.0-33.3) pg MCHC (31.6-35.5) g/dL RDW (11.5-14.5) % Plt Count (140-400) K/mcL MPV (9.4-12.4) fL Immature Gran % (0-4) % Seg Neutrophils % % Lymphocytes % % Monocytes % % Eosinophils % % Basophils % % Neutrophils # (1.6-8.9) K/mcL Lymphocytes # (0.6-4.6) K/mcL Monocytes # (0.0-1.3) K/mcL Eosinophils # (0.0-0.6) K/mcL Basophils # (0.0-0.2) K/mcL PT (9.4-12.1) Seconds INR APTT (26.0-36.0) Seconds Sodium (136-145) mEq/L Potassium (3.5-5.1) mEq/L Chloride (98-107) mEq/L Carbon Dioxide (23-29) mEq/L BUN (8-23) mg/dL Creatinine (0.70-1.30) mg/dL Est GFR ( Amer) (> 60) Est GFR (Non-Af Amer) (> 60) BUN/Creatinine Ratio (6-26) Glucose (70-105) mg/dL POC Glucose 158 H (58-89) Calculated Osmolality (280-300) Lactic Acid (0.5-2.2) mmol/L Calcium (8.6-10.3) mg/dL Phosphorus (2.7-4.5) mg/dL Magnesium (1.6-2.6) mg/dL Total Bilirubin (0.3-1.0) mg/dL AST (13-39) Units/L ALT (7-52) Units/L Alkaline Phosphatase (34-104) Units/L Ammonia (16-53) mcmol/L Troponin I < 0.03 (< 0.04) ng/mL Serum Total Protein (6.4-8.9) g/dL Albumin (3.5-5.7) g/dL Globulin (2.4-3.5) g/dL Albumin/Globulin Ratio (1.1-2.2) Urine Color Yellow (Yellow) Urine Clarity Clear (Clear) Urine pH 7.0 (5.0-8.0) pH Units Ur Specific [place] 1.015 (1.010-1.025) Urine Protein 100 H (Neg-Trace) mg/dL Urine Glucose (UA) Normal (Normal) mg/dL Urine Ketones Negative (Negative) mg/dL Urine Blood Moderate H (Negative) Urine Nitrite Negative (Negative) Urine Bilirubin Negative (Negative) Urine Urobilinogen Normal (Normal) mg/dL Ur Leukocyte Esterase Negative (Negative) Urine Microscopic RBC 30-50 H (0-3) per hpf Urine Microscopic WBC 0-3 (0-3) per hpf Ur Squamous Epith Cells Many H (None-Few) per lpf Urine Bacteria None Seen (None-Few) per hpf Hyaline Casts None Seen (None-Few) per lpf Ur Culture Indicated? NO (NO) 07/07/17 07/07/17 Range/Units 13:03 13:03 WBC (4.3-11.1) K/mcL RBC (4.19-5.50) M/mcL Hgb (12.9-16.9) g/dL Hct (37.5-50.1) % MCV (83.0-100.0) fL MCH (28.0-33.3) pg MCHC (31.6-35.5) g/dL RDW (11.5-14.5) % Plt Count (140-400) K/mcL MPV (9.4-12.4) fL Immature Gran % (0-4) % Seg Neutrophils % % Lymphocytes % % Monocytes % % Eosinophils % % Basophils % % Neutrophils # (1.6-8.9) K/mcL Lymphocytes # (0.6-4.6) K/mcL Monocytes # (0.0-1.3) K/mcL Eosinophils # (0.0-0.6) K/mcL Basophils # (0.0-0.2) K/mcL PT (9.4-12.1) Seconds INR APTT (26.0-36.0) Seconds Sodium (136-145) mEq/L Potassium (3.5-5.1) mEq/L Chloride (98-107) mEq/L Carbon Dioxide (23-29) mEq/L BUN (8-23) mg/dL Creatinine (0.70-1.30) mg/dL Est GFR ( Amer) (> 60) Est GFR (Non-Af Amer) (> 60) BUN/Creatinine Ratio (6-26) Glucose (70-105) mg/dL POC Glucose (58-89) Calculated Osmolality (280-300) Lactic Acid 2.2 (0.5-2.2) mmol/L Calcium (8.6-10.3) mg/dL Phosphorus (2.7-4.5) mg/dL Magnesium (1.6-2.6) mg/dL Total Bilirubin (0.3-1.0) mg/dL AST (13-39) Units/L ALT (7-52) Units/L Alkaline Phosphatase (34-104) Units/L Ammonia 27 (16-53) mcmol/L Troponin I (< 0.04) ng/mL Serum Total Protein (6.4-8.9) g/dL Albumin (3.5-5.7) g/dL Globulin (2.4-3.5) g/dL Albumin/Globulin Ratio (1.1-2.2) Urine Color (Yellow) Urine Clarity (Clear) Urine pH (5.0-8.0) pH Units Ur Specific [place] (1.010-1.025) Urine Protein (Neg-Trace) mg/dL Urine Glucose (UA) (Normal) mg/dL Urine Ketones (Negative) mg/dL Urine Blood (Negative) Urine Nitrite (Negative) Urine Bilirubin (Negative) Urine Urobilinogen (Normal) mg/dL Ur Leukocyte Esterase (Negative) Urine Microscopic RBC (0-3) per hpf Urine Microscopic WBC (0-3) per hpf Ur Squamous Epith Cells (None-Few) per lpf Urine Bacteria (None-Few) per hpf Hyaline Casts (None-Few) per lpf Ur Culture Indicated? (NO) Attestation Statement - Attestation Attestation: I examined this patient and my medical decision-making was reviewed with the Resident Physician. I agree with the documented findings, disposition and treatment plan as described except to the extent set forth below. [id number] time provided Patient arrives by EMS from home after multiple falls over the past several months. He does not report any traumatic injury. He does complain of generalized weakness. He appears no acute distress on exam but does smell of soiled urine 14:00: Dr. Bundy recs transfer due to acute on subacute subdural
[2017-07-07 13:04] LABS: Bilirubin,Urine Negative (Negative); Blood,Urine Moderate (Negative); Clarity,Urine Clear (Clear); Color,Urine Yellow (Yellow); Glucose,Urine (UA) Normal (Normal); Ketones,Urine Negative (Negative); Leukocyte Esterase,Urine Negative (Negative); Nitrite,Urine Negative (Negative); Protein,Urine 100 mg/dL (Neg-Trace); Specific Gravity,Urine 1.015 (1.010-1.025); Urobilinogen,Urine Normal (Normal)
[2017-07-07 13:06] LABS: Bacteria,Urine None Seen per hpf (None-Few); Hyaline Casts,Urine None Seen per lpf (None-Few); RBC,Urine 30-50 per hpf (0-3); Squamous Epithelial Cell,Urine Many per lpf (None-Few); WBC,Urine 0-3 per hpf (0-3)
--- NOTE | 2017-07-07 13:21 | Emergency Department Note ---
Disposition Clinical Impression: Prostate cancer, Near syncope, Multiple falls, Weakness Disposition: Admitted As Inpatient Condition: Fair Time of Disposition: 16:02 General Adult HPI - General Chief complaint: ED Fall Stated complaint: fall this am/weakness for several days Time Seen by Provider: 07/07/17 12:30 Source: patient, EMS Mode of arrival: EMS Limitations: no limitations Nursing Notes Reviewed: Yes Vital Signs Reviewed: Yes - History of Present Illness HPI Narrative: 86-year-old male presents to the emergency department complaining of fall this morning and also generalized weakness. Patient does have history of prostate and colon cancer as well as hepatitis. Patient says he does have Artane. Is mainly incontinent now. He does live at home with only his . They will have any other caretakers. Patient does do occupational health rehabilitation. says he has not been able to attend that recently. was not really received murmur this is all from the EMS report. The patient says he does not hurt anywhere. Status feels very weak and is normal self. Patient otherwise says that he has no other complaints including no fevers, chills, nausea, vomiting, headache, blurry vision, neck pain, back pain, chest pain, shortness of breath, abdominal pain, pain with urination, changes in bowel movements, loss of bladder or bowel, pain or tingling going down the arms or legs. Patient states that he did fall earlier this morning about 4 AM denied his head here over the entire event. Patient though is a poor historian. Pain Scale: 2 - Related Data Home Medications Medication Instructions Recorded Confirmed Aspirin 325 mg PO DAILY 11/25/14 07/07/17 Glimepiride [Amaryl] 4 mg PO BID 11/25/14 07/07/17 Multivitamin [Multivitamins] 1 tab PO DAILY 11/25/14 07/07/17 Vitamin E 400 unit PO DAILY 11/25/14 07/07/17 Verapamil ER (24 HR) [Calan SR] 360 mg PO DAILY 03/01/15 07/07/17 Tamsulosin [Flomax] 0.4 mg PO DAILY 02/29/16 07/07/17 Calcium/D3/Mag Ox/Tone Artist Apprentice/Bhaskar/Zn 1 tab PO BID 07/30/16 07/07/17 [Caltrate+D3 Plus Mineral Minis] Pioglitazone [Actos] 45 mg PO DAILY 05/06/17 07/07/17 Metformin HCl [Metformin HCl ER] 1,000 mg PO BID 05/07/17 07/07/17 Venlafaxine [Effexor] 37.5 mg PO BID 05/07/17 07/07/17 Iron Polysaccharide Complex 150 mg PO DAILY 06/14/17 07/07/17 [Ferrex 150] Metoprolol [Lopressor] 25 mg PO BID 06/14/17 07/07/17 Dutasteride [Dutasteride] 0.5 mg PO DAILY 07/07/17 07/07/17 Sennosides/Docusate Sodium [Senna 2 tab PO BID 07/07/17 07/07/17 Plus] Previous Rx's Medication Instructions Recorded HYDROcodone/Acet 5/325 mg [[place] 1 tab PO Q6H PRN #60 tab 04/23/17 5-325 mg] Ranitidine HCl [Zantac] 150 mg PO BID #180 tablet 06/20/17 Allergies Allergy/AdvReac Type Severity Reaction Status Date / Time No Known Allergies Allergy Verified 07/07/17 12:31 Review of Systems: 10 point review of systems done and negative unless otherwise stated in the history of present illness. All systems ED: reviewed and negative except as stated. Review of Systems: As Per HPI Past Medical History - Past Medical History Attestation: Yes The following information was validated with the patient. Source: patient Medical history: Reports: arthritis, cancer, diabetes, GERD, hypertension, renal disease, other Surgical history: Reports: appendectomy, cancer surgery, cholecystectomy, other Psychiatric history: Reports: no psych history - Social History Smoking Status: Never smoker Smokeless Tobacco Status: No Alcohol use: Reports: none Drug use: Reports: none Physical Exam - General Limitations: no limitations General appearance: alert - Head Head exam: atraumatic, normocephalic, normal inspection - Eye Eye exam: Present: normal appearance, PERRL, EOMI - ENT ENT exam: normal exam, normal oropharynx, mucous membranes moist - Neck Neck exam: Present: normal inspection, full ROM, trachea midline - Chest Chest inspection: Present: normal inspection, symmetric chest wall rise - Respiratory Respiratory exam: Present: normal lung sounds bilaterally - Cardiovascular Cardiovascular exam: Present: regular rate, normal rhythm, normal heart sounds - Abdominal Exam Abdominal exam: Present: soft, Non-Tender, normal bowel sounds. Absent: tenderness, distention, guarding, rebound, rigidity - Extremities Exam Extremities exam: Present: normal inspection, full ROM. Absent: tenderness, pedal edema - Expanded Lower Extremity Exam Neurovascular/Tendon exam: Present: normal capillary refill. Absent: pulse deficit, motor deficit, sensory deficit, tendon deficit - Back Exam Back exam: Present: normal inspection, full ROM. Absent: tenderness, CVA tenderness (R), CVA tenderness (L) - Neurological Exam Neurological exam: Present: alert, oriented X3, CN II-XII intact. Absent: motor sensory deficit - Expanded Neurological Exam Patient oriented to: Present: person, place, time Motor strength - LUE: 5/5 Motor strength - RUE: 5/5 Motor strength - LLE: 5/5 Motor strength - RLE: 5/5 Sensory exam upper extremity: light touch: Normal Sensory exam lower extremity: light touch: Normal Coma Scale Eye Opening: Spontaneous Coma Scale Motor Response: Obeys Commands Coma Scale Verbal Response: Confused Coma Scale Total: 14 - Skin Skin exam: Present: warm, dry, intact, normal color Course Course Narrative: 86-year-old male presents to the emergency department after a fall and generalized weakness. We will do basic labs including CBC, BMP, troponin, ammonia, lactate, magnesium, phosphate. We will get an EKG as well as chest x- ray. We will urinalysis via White catheter. Patient is incontinent so will place a White catheter related. We will also get CT of his head. Most likely this patient has been readmitted due to his weakness. Vital Signs Temperature 98 F 07/07/17 12:35 Pulse Rate 93 07/07/17 12:35 Respiratory Rate 20 07/07/17 12:35 Blood Pressure 163/98 07/07/17 12:35 O2 Sat by Pulse Oximetry 96 07/07/17 12:35 Temperature 98 F 07/07/17 12:35 Pulse Rate 84 07/07/17 15:39 Respiratory Rate 20 07/07/17 15:39 Blood Pressure 181/110 07/07/17 15:39 O2 Sat by Pulse Oximetry 98 07/07/17 15:39 Oxygen Delivery Oxygen Delivery Room Air Medical Decision Making - MDM Narrative Medical decision making narrative: 86-year-old male presents to the emergency department complaining of generalized weakness. CT head did show an old subdural bleed. It was chronic in stable illness is also according to his neurosurgeon and he knows about. Patient's labs including urinalysis was all normal. Due to patient's changes in mental status and still feeling weak and falls we felt that admission to the hospital is needed. I spoke with Dr. Stone agreed to admit the patient denies thirst. Patient is stable at this time. Patient had no acute EKG changes. His EKG was normal. Chest x-ray also showed no acute changes. Chest X-Ray 07/07/17 12:32 IMPRESSION: Borderline cardiomegaly with no significant findings otherwise. 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 The density of a portion of the collection appears decreased as compared to prior, compatible with interval aging. Mild [id number] shift is minimally increased as compared to prior. Atrophy and small vessel ischemic disease. D/ / Vinay Golden MD / Vinay Golden MD Interpreting Provider: Vinay Golden MD - Medical Records Medical records reviewed: Yes I reviewed the patient's medical records. - Lab Data Lab results reviewed: Yes I reviewed the patient's lab results. Result diagrams: 07/07/17 12:32 07/07/17 12:34 Lab Results 07/07/17 07/07/17 07/07/17 Range/Units 12:32 12:32 12:34 WBC 5.8 (4.3-11.1) K/mcL RBC 3.82 L (4.19-5.50) M/mcL Hgb 10.2 L (12.9-16.9) g/dL Hct 33.5 L (37.5-50.1) % MCV 87.7 (83.0-100.0) fL MCH 26.7 L (28.0-33.3) pg MCHC 30.4 L (31.6-35.5) g/dL RDW 17.1 H (11.5-14.5) % Plt Count 294 (140-400) K/mcL MPV 9.7 (9.4-12.4) fL Immature Gran % 0.3 (0-4) % Seg Neutrophils % 71.0 % Lymphocytes % 18.2 % Monocytes % 9.1 % Eosinophils % 1.2 % Basophils % 0.2 % Neutrophils # 4.1 (1.6-8.9) K/mcL Lymphocytes # 1.1 (0.6-4.6) K/mcL Monocytes # 0.5 (0.0-1.3) K/mcL Eosinophils # 0.1 (0.0-0.6) K/mcL Basophils # 0.0 (0.0-0.2) K/mcL PT 12.3 H (9.4-12.1) Seconds INR 1.1 APTT 32.1 (26.0-36.0) Seconds Sodium 135 L (136-145) mEq/L Potassium 4.2 (3.5-5.1) mEq/L Chloride 102 (98-107) mEq/L Carbon Dioxide 27 (23-29) mEq/L BUN 14 (8-23) mg/dL Creatinine 1.04 (0.70-1.30) mg/dL Est GFR ( Amer) > 60 (> 60) Est GFR (Non-Af Amer) > 60 (> 60) BUN/Creatinine Ratio 13 (6-26) Glucose 180 H (70-105) mg/dL POC Glucose (58-89) Calculated Osmolality 285 (280-300) Lactic Acid (0.5-2.2) mmol/L Calcium 10.0 (8.6-10.3) mg/dL Phosphorus 2.8 (2.7-4.5) mg/dL Magnesium 1.6 (1.6-2.6) mg/dL Total Bilirubin 0.4 (0.3-1.0) mg/dL AST 12 L (13-39) Units/L ALT 11 (7-52) Units/L Alkaline Phosphatase 91 (34-104) Units/L Ammonia (16-53) mcmol/L Troponin I (< 0.04) ng/mL Serum Total Protein 7.3 (6.4-8.9) g/dL Albumin 3.4 L (3.5-5.7) g/dL Globulin 3.9 H (2.4-3.5) g/dL Albumin/Globulin Ratio 0.9 L (1.1-2.2) Urine Color (Yellow) Urine Clarity (Clear) Urine pH (5.0-8.0) pH Units Ur Specific [place] (1.010-1.025) Urine Protein (Neg-Trace) mg/dL Urine Glucose (UA) (Normal) mg/dL Urine Ketones (Negative) mg/dL Urine Blood (Negative) Urine Nitrite (Negative) Urine Bilirubin (Negative) Urine Urobilinogen (Normal) mg/dL Ur Leukocyte Esterase (Negative) Urine Microscopic RBC (0-3) per hpf Urine Microscopic WBC (0-3) per hpf Ur Squamous Epith Cells (None-Few) per lpf Urine Bacteria (None-Few) per hpf Hyaline Casts (None-Few) per lpf Ur Culture Indicated? (NO) 07/07/17 07/07/17 07/07/17 Range/Units 12:35 12:56 13:00 WBC (4.3-11.1) K/mcL RBC (4.19-5.50) M/mcL Hgb (12.9-16.9) g/dL Hct (37.5-50.1) % MCV (83.0-100.0) fL MCH (28.0-33.3) pg MCHC (31.6-35.5) g/dL RDW (11.5-14.5) % Plt Count (140-400) K/mcL MPV (9.4-12.4) fL Immature Gran % (0-4) % Seg Neutrophils % % Lymphocytes % % Monocytes % % Eosinophils % % Basophils % % Neutrophils # (1.6-8.9) K/mcL Lymphocytes # (0.6-4.6) K/mcL Monocytes # (0.0-1.3) K/mcL Eosinophils # (0.0-0.6) K/mcL Basophils # (0.0-0.2) K/mcL PT (9.4-12.1) Seconds INR APTT (26.0-36.0) Seconds Sodium (136-145) mEq/L Potassium (3.5-5.1) mEq/L Chloride (98-107) mEq/L Carbon Dioxide (23-29) mEq/L BUN (8-23) mg/dL Creatinine (0.70-1.30) mg/dL Est GFR ( Amer) (> 60) Est GFR (Non-Af Amer) (> 60) BUN/Creatinine Ratio (6-26) Glucose (70-105) mg/dL POC Glucose 158 H (58-89) Calculated Osmolality (280-300) Lactic Acid (0.5-2.2) mmol/L Calcium (8.6-10.3) mg/dL Phosphorus (2.7-4.5) mg/dL Magnesium (1.6-2.6) mg/dL Total Bilirubin (0.3-1.0) mg/dL AST (13-39) Units/L ALT (7-52) Units/L Alkaline Phosphatase (34-104) Units/L Ammonia (16-53) mcmol/L Troponin I < 0.03 (< 0.04) ng/mL Serum Total Protein (6.4-8.9) g/dL Albumin (3.5-5.7) g/dL Globulin (2.4-3.5) g/dL Albumin/Globulin Ratio (1.1-2.2) Urine Color Yellow (Yellow) Urine Clarity Clear (Clear) Urine pH 7.0 (5.0-8.0) pH Units Ur Specific [place] 1.015 (1.010-1.025) Urine Protein 100 H (Neg-Trace) mg/dL Urine Glucose (UA) Normal (Normal) mg/dL Urine Ketones Negative (Negative) mg/dL Urine Blood Moderate H (Negative) Urine Nitrite Negative (Negative) Urine Bilirubin Negative (Negative) Urine Urobilinogen Normal (Normal) mg/dL Ur Leukocyte Esterase Negative (Negative) Urine Microscopic RBC 30-50 H (0-3) per hpf Urine Microscopic WBC 0-3 (0-3) per hpf Ur Squamous Epith Cells Many H (None-Few) per lpf Urine Bacteria None Seen (None-Few) per hpf Hyaline Casts None Seen (None-Few) per lpf Ur Culture Indicated? NO (NO) 07/07/17 07/07/17 Range/Units 13:03 13:03 WBC (4.3-11.1) K/mcL RBC (4.19-5.50) M/mcL Hgb (12.9-16.9) g/dL Hct (37.5-50.1) % MCV (83.0-100.0) fL MCH (28.0-33.3) pg MCHC (31.6-35.5) g/dL RDW (11.5-14.5) % Plt Count (140-400) K/mcL MPV (9.4-12.4) fL Immature Gran % (0-4) % Seg Neutrophils % % Lymphocytes % % Monocytes % % Eosinophils % % Basophils % % Neutrophils # (1.6-8.9) K/mcL Lymphocytes # (0.6-4.6) K/mcL Monocytes # (0.0-1.3) K/mcL Eosinophils # (0.0-0.6) K/mcL Basophils # (0.0-0.2) K/mcL PT (9.4-12.1) Seconds INR APTT (26.0-36.0) Seconds Sodium (136-145) mEq/L Potassium (3.5-5.1) mEq/L Chloride (98-107) mEq/L Carbon Dioxide (23-29) mEq/L BUN (8-23) mg/dL Creatinine (0.70-1.30) mg/dL Est GFR ( Amer) (> 60) Est GFR (Non-Af Amer) (> 60) BUN/Creatinine Ratio (6-26) Glucose (70-105) mg/dL POC Glucose (58-89) Calculated Osmolality (280-300) Lactic Acid 2.2 (0.5-2.2) mmol/L Calcium (8.6-10.3) mg/dL Phosphorus (2.7-4.5) mg/dL Magnesium (1.6-2.6) mg/dL Total Bilirubin (0.3-1.0) mg/dL AST (13-39) Units/L ALT (7-52) Units/L Alkaline Phosphatase (34-104) Units/L Ammonia 27 (16-53) mcmol/L Troponin I (< 0.04) ng/mL Serum Total Protein (6.4-8.9) g/dL Albumin (3.5-5.7) g/dL Globulin (2.4-3.5) g/dL Albumin/Globulin Ratio (1.1-2.2) Urine Color (Yellow) Urine Clarity (Clear) Urine pH (5.0-8.0) pH Units Ur Specific [place] (1.010-1.025) Urine Protein (Neg-Trace) mg/dL Urine Glucose (UA) (Normal) mg/dL Urine Ketones (Negative) mg/dL Urine Blood (Negative) Urine Nitrite (Negative) Urine Bilirubin (Negative) Urine Urobilinogen (Normal) mg/dL Ur Leukocyte Esterase (Negative) Urine Microscopic RBC (0-3) per hpf Urine Microscopic WBC (0-3) per hpf Ur Squamous Epith Cells (None-Few) per lpf Urine Bacteria (None-Few) per hpf Hyaline Casts (None-Few) per lpf Ur Culture Indicated? (NO) - Radiology Data Radiology results reviewed: Yes I reviewed the patient's radiology results. - EKG Data EKG #1 EKG attestation: Yes I reviewed and interpreted this EKG. EKG results narrative: EKG done at 1240 myself and attending shows A. fib with RVR 105, QRS 137, QTC 424 with a normal axis. There is no acute ST changes no acute T-wave changes there is a right bundle-branch block. No other signs of ischemia. Patient otherwise has no heart blocks, heart strain, hypertrophy, WPW/Leila syndrome. Overall EKG is unchanged compared with old ones on his 06/22/17
[2017-07-07 13:27] LABS: Basophils % 0.2 %; Eosinophils # 0.1 K/mcL (0.0-0.6); Eosinophils % 1.2 %; Hematocrit 33.5 % (37.5-50.1); Hemoglobin 10.2 g/dL (12.9-16.9); Immature Granulocytes % 0.3 % (0-4); Lymphocytes # 1.1 K/mcL (0.6-4.6); Lymphocytes % 18.2 %; Mean Corpuscular HGB Conc 30.4 g/dL (31.6-35.5); Mean Corpuscular Hemoglobin 26.7 pg (28.0-33.3); Mean Corpuscular Volume 87.7 fL (83.0-100.0); Mean Platelet Volume 9.7 fL (9.4-12.4); Monocytes # 0.5 K/mcL (0.0-1.3); Monocytes % 9.1 %; Neutrophils # 4.1 K/mcL (1.6-8.9); Platelet Count 294 K/mcL (140-400); Red Blood Count 3.82 M/mcL (4.19-5.50); Red Cell Distribution Width 17.1 % (11.5-14.5)
[2017-07-07 13:33] LABS: INR 1.1; Prothrombin Time 12.3 Seconds (9.4-12.1)
[2017-07-07 13:36] LABS: Activated Partial Thrombo Time 32.1 Seconds (26.0-36.0)
[2017-07-07 13:42] LABS: Alanine Aminotransferase 11 Units/L (7-52); Albumin 3.4 g/dL (3.5-5.7); Albumin/Globulin Ratio 0.9 (1.1-2.2); Alkaline Phosphatase 91 Units/L (34-104); Aspartate Amino Transferase 12 Units/L (13-39); BUN/Creatinine Ratio 13 (6-26); Bilirubin,Total 0.4 mg/dL (0.3-1.0); Blood Urea Nitrogen 14 mg/dL (8-23); Carbon Dioxide 27 mEq/L (23-29); Chloride 102 mEq/L (98-107); Globulin 3.9 g/dL (2.4-3.5); Glucose 180 mg/dL (70-105); Magnesium 1.6 mg/dL (1.6-2.6); Osmolality,Calculated 285 (280-300); Phosphorous 2.8 mg/dL (2.7-4.5); Potassium 4.2 mEq/L (3.5-5.1); Sodium 135 mEq/L (136-145); Total Protein 7.3 g/dL (6.4-8.9); eGFR For African Americans > 60 (> 60); eGFR For Non-African Americans > 60 (> 60)
[2017-07-07] MEDS ORDERED: Acetaminophen 325 MG TABLET PO PRN (16:10)
[2017-07-07] MEDS ORDERED: Naloxone 0.4 MG/ML INJ IVP PRN (16:10)
--- NOTE | 2017-07-07 16:27 | Internal Med History&Physical ---
Date of Encounter: 07/07/17 Time of Encounter: 16:00 Assessment and Plan (1) Weakness Current visit: Yes Status: Acute Patient presenting with generalized weakness. Most likely worsened from recent subdural hematoma. Will consult physical therapy for evaluation. Patient will most flexion and placement to skilled rehabilitation. (2) Subdural hematoma Current visit: Yes Status: Chronic Patient with recent subdural hematoma. CT of the head shows acute and chronic components. Minimal increase in left to right shift. I had recommended that the patient be transferred to [facility] for higher level of care. However patient does not wish to be transferred. I did discuss this with him and explained the risks of being treated in a facility not equipped to take care of neurosurgical patients including risk of sudden . He said he understands these risks but still does not want to be transferred. He would however wished to remain full code and wants CPR and intubation done for cardiac and respiratory arrest. Will monitor neuro function closely. Keep on telemetry. High risk for complications. (3) Diabetes Current visit: Yes Status: Chronic Monitor blood glucose. Sliding scale insulin. Diabetic diet. Qualifiers: Diabetes mellitus type: type 2 Diabetes mellitus jail insulin use: without exterminator helper termite use Diabetes mellitus complication status: without complication Qualified Code(s): E11.9 - Type 2 diabetes mellitus without complications (4) HTN (hypertension) Current visit: Yes Status: Chronic Blood pressure remains uncontrolled. Patient's home medication. Monitor blood pressure and adjust antihypertensive regimen accordingly. If persistently elevated, will place him on intravenous medications to control her blood pressure better. Qualifiers: Hypertension type: essential hypertension Qualified Code(s): I10 - Essential (primary) hypertension (5) DVT prophylaxis Current visit: Yes Status: Acute With EPCD Internal Medicine - H&P: HPI Chief complaint: Generalized weakness, recent subdural hematoma Admitted From: Emergency Dept Plans for Post Hospital Care: Transfer [facility] Facility History of present illness: Mr. Dobbins is a 86 year old male patient who recently had subdural hematoma after a fall earlier this month presented to the ER today with complaints of generalized weakness. He has been following up with neurosurgery at [facility] for his subdural hematoma and was told 2 days back that it was stable without any change in size. He has continued to feel weak at home. He denies any more falls since then. He denies any headaches or blurred vision. No nausea or vomiting. No fever or chills. No chest pain. He has a history of diabetes and hypertension. He is on aspirin. The ED record but according to the ED records, patient reportedly had a fall earlier this morning but denied hitting his head. He is also been incontinent recently. Past Med Surg Social Fam HX - Past Medical History Attestation: Yes The following information was validated with the patient. Source: patient Medical history: arthritis, cancer, diabetes, GERD, hypertension, renal disease , other Psychiatric history: no psych history - Past Surgical History Surgical History: appendectomy, cancer surgery, cholecystectomy, other - Social History Smoking Status: Never smoker Smokeless Tobacco Status: No Alcohol use: none Drug use: none - Family History Father Hx Family Cardiac Disorders: Yes Hx Family Respiratory Disorders: No Hx Family Cancer: No Hx Family GI Disorders: No Hx Family Endocrine Disorder: No Hx Family Neuromuscular Disorders: No Hx Family Neurologic Disorders: No Hx Family HEENT Disorders: No Hx Family Autoimmune Disorders: No Mother Living Status: Hx Family Cardiac Disorders: No Hx Family Respiratory Disorders: No Hx Family Cancer: Yes ("female" cancer) Hx Family GI Disorders: No Hx Family Endocrine Disorder: No Hx Family Neuromuscular Disorders: No Hx Family Neurologic Disorders: No Hx Family HEENT Disorders: No Hx Family Autoimmune Disorders: No Internal Medicine - H&P: Meds Aspirin 325 mg PO DAILY 11/25/14 [History] Glimepiride [Amaryl] 4 mg PO BID 11/25/14 [History] Multivitamin [Multivitamins] 1 tab PO DAILY 11/25/14 [History] Vitamin E 400 unit PO DAILY 11/25/14 [History] Verapamil ER (24 HR) [Calan SR] 360 mg PO DAILY 03/01/15 [History] Tamsulosin [Flomax] 0.4 mg PO DAILY 02/29/16 [History] Calcium/D3/Mag Ox/Counter Roller/Bhaskar/Zn [Caltrate+D3 Plus Mineral Minis] 1 tab PO BID [History] HYDROcodone/Acet 5/325 mg [[place]ster 5-325 mg] 1 tab PO Q6H PRN #60 tab 04/23/17 [Rx ] Pioglitazone [Actos] 45 mg PO DAILY 05/06/17 [History] Metformin HCl [Metformin HCl ER] 1,000 mg PO BID 05/07/17 [History] Venlafaxine [Effexor] 37.5 mg PO BID 05/07/17 [History] Iron Polysaccharide Complex [Ferrex 150] 150 mg PO DAILY 06/14/17 [History] Metoprolol [Lopressor] 25 mg PO BID 06/14/17 [History] Ranitidine HCl [Zantac] 150 mg PO BID #180 tablet 06/20/17 [Rx] Dutasteride [Dutasteride] 0.5 mg PO DAILY 07/07/17 [History] Sennosides/Docusate Sodium [Senna Plus] 2 tab PO BID 07/07/17 [History] 3 Allergy/AdvReac Type Severity Reaction Status Date / Time No Known Allergies Allergy Verified 07/07/17 12:31 All Systems PM: A 10-system review of systems was performed and is negative for pertinent findings except as documented above in the HPI. - Constitutional Constitutional: malaise, no chills, no fever(s), no night sweats - EENT Eyes: no change in vision, no discharge, no pain, no photophobia Ears: no ear discharge, no ear pain, no tinnitus Nose, mouth and throat: no dysphagia, no nasal discharge, no neck pain, no sore throat - Cardiovascular Cardiovascular ROS IM: no chest pain, no diaphoresis, no dyspnea, no lightheadedness, no palpitations, no syncope - Respiratory Respiratory: no cough, no dyspnea, no wheezing, no excessive phlegm production - Gastrointestinal Gastrointestinal: no abdominal pain, no diarrhea, no hematemesis, no hematochezia, no melena, no nausea, no vomiting - Musculoskeletal Musculoskeletal ROS IM: no numbness, no tingling - Integumentary Integumentary IM: no rash, no unusual bruising - Neurological Neurological ROS: disequilibrium, weakness, no confusion, no convulsions, no focal weakness, no numbness, no tingling, no tremor(s) - Hematologic/Lymphatic Hematologic/Lymphatic: no easy bruising - Constitutional Vitals: Temp Pulse Resp BP Pulse Ox 98 F 84 20 181/110 98 07/07/17 12:35 07/07/17 15:39 07/07/17 15:39 07/07/17 15:39 07/07/17 15:39 General appearance: Present: cooperative, A&O X 3, pleasant, no acute distress, answers questions appropriately - Neck Neck exam general surgery: Present: supple, trachea midline. Absent: lymphadenopathy - Respiratory Respiratory exam: Present: CTAB. Absent: accessory muscle use, rales, rhonchi, wheezes - Cardiovascular Cardiovascular exam: Present: RRR, +S1, +S2. Absent: diastolic murmur, gallop, rubs, systolic murmur - GI/Abdominal GI/Abdominal exam: Present: normal bowel sounds, soft, no peritoneal signs. Absent: distended, tenderness - Extremities Exam Extremities exam: Present: warm, radial pulses palpable and symmetrical. Absent : calf tenderness, cyanotic, pedal edema - Neurological Exam Neurological exam: Present: alert, CN II-XII intact, oriented X3, no focal deficits. Absent: facial droop, speech deficit - Skin Skin exam: Present: dry, intact Internal Med - H&P Results - Labs CBC & Chem 7: 07/07/17 12:32 07/07/17 12:34 - Impressions Impressions Chest X-Ray 07/07/17 12:32 IMPRESSION: Borderline cardiomegaly with no significant findings otherwise. 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 The density of a portion of the collection appears decreased as compared to prior, compatible with interval aging. Mild [id number] shift is minimally increased as compared to prior. Atrophy and small vessel ischemic disease. D/ / Vinay Golden MD / Vinay Golden MD Interpreting Provider: Vinay Golden MD
[2017-07-07] MEDS ORDERED: D5% in Water 1,000 ML IVC PRN (16:33)
[2017-07-07] MEDS ORDERED: Dextrose Gel 15 GM/37.5 ML TUBE PO PRN ×2 (16:33)
[2017-07-07] MEDS ORDERED: *HR* Dextrose 50 % in Water (Syg) 50 ML SYRINGE IVP PRN (16:33)
[2017-07-07] MEDS ORDERED: *HR* HYDROcodone/Acet 5/325 mg TABLET PO PRN (16:34)
[2017-07-07] MEDS: Sennosides/Docusate Sodium TABLET PO SCH (21:32)
[2017-07-07] MEDS: COP PO SCH (21:35)
[2017-07-07] MEDS: CALCIUM PO SCH (21:35)
[2017-07-07] MEDS: [UNRECOGNIZED DRUG - OTHER] PO SCH (21:35)
[2017-07-07] MEDS: MAG OX PO SCH (21:35)
[2017-07-07] MEDS: MANG PO SCH (21:35)
[2017-07-07] MEDS: D3 PO SCH (21:35)
[2017-07-07] MEDS: Insulin LISPRO 300 UNITS/3 ML VIAL SQ SCH (21:36)
[2017-07-07] MEDS: Famotidine 20 MG TABLET PO SCH (21:48)
[2017-07-08 03:56] LABS: Basophils % 0.4 %; Eosinophils # 0.1 K/mcL (0.0-0.6); Eosinophils % 1.7 %; Hemoglobin 9.9 g/dL (12.9-16.9); Immature Granulocytes % 0.2 % (0-4); Lymphocytes % 18.7 %; Mean Corpuscular HGB Conc 30.9 g/dL (31.6-35.5); Mean Corpuscular Hemoglobin 26.9 pg (28.0-33.3); Mean Platelet Volume 9.7 fL (9.4-12.4); Monocytes # 0.5 K/mcL (0.0-1.3); Monocytes % 9.9 %; Neutrophils # 3.6 K/mcL (1.6-8.9); Platelet Count 276 K/mcL (140-400); Red Blood Count 3.68 M/mcL (4.19-5.50); Red Cell Distribution Width 17.2 % (11.5-14.5); Segmented Neutrophils % 69.1 %
[2017-07-08 04:17] LABS: BUN/Creatinine Ratio 13 (6-26); Blood Urea Nitrogen 13 mg/dL (8-23); Calcium 9.5 mg/dL (8.6-10.3); Carbon Dioxide 25 mEq/L (23-29); Chloride 102 mEq/L (98-107); Glucose 186 mg/dL (70-105); Osmolality,Calculated 279 (280-300); Potassium 4.2 mEq/L (3.5-5.1); Sodium 132 mEq/L (136-145); eGFR For African Americans > 60 (> 60); eGFR For Non-African Americans > 60 (> 60)
[2017-07-08] MEDS: Famotidine 20 MG TABLET PO SCH ×2 (07:46→17:08)
[2017-07-08] MEDS: Sennosides/Docusate Sodium TABLET PO SCH ×2 (07:46→21:03)
[2017-07-08] MEDS: Multivit/Ca/Min/Fe/FA 1 TAB TABLET PO SCH (07:46)
[2017-07-08] MEDS: Iron Polysaccharide Complex 150 MG CAPSULE PO SCH (07:47)
[2017-07-08] MEDS: Verapamil ER (24 HR) 180 MG TABLET.ER PO SCH (07:47)
[2017-07-08] MEDS: Insulin LISPRO 300 UNITS/3 ML VIAL SQ SCH ×4 (07:47→23:33)
[2017-07-08] MEDS: Finasteride 5 MG TABLET PO SCH (07:47)
[2017-07-08] MEDS: MANG PO SCH (07:48)
[2017-07-08] MEDS: CALCIUM PO SCH (07:48)
[2017-07-08] MEDS: [UNRECOGNIZED DRUG - OTHER] PO SCH (07:48)
[2017-07-08] MEDS: COP PO SCH (07:48)
[2017-07-08] MEDS: D3 PO SCH (07:48)
[2017-07-08] MEDS: MAG OX PO SCH (07:48)
--- NOTE | 2017-07-08 09:17 | Internal Med Progress Note ---
<Yogesh Dumont Erin - Last Filed: 07/08/17 12:32> Date of Encounter: 07/08/17 - Constitutional Vitals: Temp Pulse Resp BP Pulse Ox 98.6 F 67 15 145/75 94 07/08/17 11:23 07/08/17 11:23 07/08/17 11:23 07/08/17 11:23 07/08/17 11:23 Internal Medicine: Result - Labs CBC & Chem 7: 07/08/17 03:38 07/08/17 03:38 Labs: Short CBC 07/08/17 Range/Units 03:38 WBC 5.3 (4.3-11.1) K/mcL Hgb 9.9 L (12.9-16.9) g/dL Hct 32.0 L (37.5-50.1) % Plt Count 276 (140-400) K/mcL Neutrophils # 3.6 (1.6-8.9) K/mcL BMP 07/08/17 03:38 Sodium 132 L Potassium 4.2 Chloride 102 Carbon Dioxide 25 BUN 13 Creatinine 1.04 Glucose 186 H Calcium 9.5 - ABG Interpretation ABG results: PT/INR, D-dimer PT 12.3 Seconds (9.4-12.1) H 07/07/17 12:32 Consult Discharge Plan - Plan Referrals: Unassigned,Provider [Non-Partnered Physician] - - Attending Attestation Informant independent interview and exam of this patient. Agree with the findings, assessment, and plan of Dr. Maxwell, internal medicine international account manager. Patient refuses transfer to higher level of care for his subdural hematoma. He understands that he could from this. He also in my opinion has the capacity to make his own decisions and understand the outcomes. Patient has significant weakness and may need placement. Pt otherwise is hemodynamically stable and in no acute distress. Waiting PT and OT evaluations. (1) Subdural hematoma Current Visit: Yes Status: Chronic Assessment and plan: Patient w/ recent subdural hematoma -CT of the head shows acute and chronic components; Minimal increase in left to right shift -Patient was advised to be transferred to [facility] for higher level of care; patient refused transfer -Risks of being treated in a facility not equipped to take care of neurosurgical patients was explained -Patient understands risks; still does not want to be transferred -Remains full code -Monitor neuro function closely; continue telemetry -High risk for complications (2) Weakness Current Visit: Yes Status: Acute Assessment and plan: Patient presented with generalized weakness -Most likely worsened from recent subdural hematoma -Will consult physical therapy for evaluation -Patient will likely need rehabilitation after hospitalization -Urinalysis has been ordered (3) Diabetes Current Visit: Yes Status: Chronic Assessment and plan: -Monitor blood glucose -Sliding scale insulin -Diabetic diet Qualifiers: Diabetes mellitus type: type 2 Diabetes mellitus terminal block assembler insulin use: without terminal block assembler use Diabetes mellitus complication status: without complication Qualified Code(s): E11.9 - Type 2 diabetes mellitus without complications (4) HTN (hypertension) Current Visit: Yes Status: Chronic Assessment and plan: -BP remains uncontrolled -Hydralazine 10 mg IV every 6 when necessary -Lopressor 25 mg by mouth twice a day -Verapamil ER 360 mg by mouth daily Qualifiers: <Elijah Maxwell - Last Filed: 07/08/17 13:19> Date of Encounter: 07/08/17 Time of Encounter: 09:15 - Assessment and plan (1) Subdural hematoma Current Visit: Yes Status: Chronic Assessment and plan: Patient w/ recent subdural hematoma -CT of the head shows acute and chronic components; Minimal increase in left to right shift -Patient was advised to be transferred to [facility] for higher level of care; patient refused transfer -Risks of being treated in a facility not equipped to take care of neurosurgical patients was explained -Patient understands risks; still does not want to be transferred -Remains full code -Monitor neuro function closely; continue telemetry -High risk for complications (2) Weakness Current Visit: Yes Status: Acute Assessment and plan: Patient presented with generalized weakness -Most likely worsened from recent subdural hematoma -Will consult physical therapy for evaluation -Patient will likely need rehabilitation after hospitalization -Urinalysis has been ordered (3) Diabetes Current Visit: Yes Status: Chronic Assessment and plan: -Monitor blood glucose -Sliding scale insulin -Diabetic diet Qualifiers: Diabetes mellitus type: type 2 Diabetes mellitus prison insulin use: without terminal block assembler use Diabetes mellitus complication status: without complication Qualified Code(s): E11.9 - Type 2 diabetes mellitus without complications (4) HTN (hypertension) Current Visit: Yes Status: Chronic Assessment and plan: -BP remains uncontrolled -Hydralazine 10 mg IV every 6 when necessary -Lopressor 25 mg by mouth twice a day -Verapamil ER 360 mg by mouth daily Qualifiers: Hypertension type: essential hypertension Qualified Code(s): I10 - Essential (primary) hypertension (5) DVT prophylaxis Current Visit: Yes Status: Acute Assessment and plan: -EPCD - Subjective Interval history: 86 male. His only had subdural hematoma after a fall earlier in the month. Presented to ER for generalized weakness. Has been following up with neurosurgery at [facility] for subdural hematoma and was told 2 days ago that it was stable without any change in size. Continue to feel weak at home. Patient is on aspirin. Patient also has recently been incontinent. Patient lives at home with his . Patient is poor historian. CT scan of the head demonstrated acute and chronic components; minimal increase in left to right shift. Patient was advised to be transferred to [facility] for higher level of care. Patient refused transfer. Risks of being treated in a facility not properly equipped to take care of neurosurgical patients was explained to the patient. He understood the risks and still did not want to be transferred. He remains full code. - Constitutional Vitals: Temp Pulse Resp BP Pulse Ox 98.5 F 99 16 176/94 98 07/08/17 07:26 07/08/17 07:26 07/08/17 07:26 07/08/17 07:26 07/08/17 07:26 General appearance: Present: cooperative, A&O X 3, pleasant, no acute distress, answers questions appropriately - Head Head exam: Present: atraumatic, normocephalic - Eye Eye exam: Present: PERRL, conjuntiva pink, sclera anicteric Pupils: Present: PERRL - Neck Neck exam general surgery: Present: supple, trachea midline. Absent: lymphadenopathy - Respiratory Respiratory exam: Present: CTAB. Absent: accessory muscle use, rales, rhonchi, wheezes - Cardiovascular Cardiovascular exam: Present: RRR, +S1, +S2. Absent: diastolic murmur, gallop, rubs, systolic murmur - Extremities Exam Extremities exam: Present: warm, radial pulses palpable and symmetrical. Absent : calf tenderness, cyanotic, pedal edema - Neurological Exam Neurological exam: Present: oriented X3 - Skin Skin exam: Present: dry, intact Internal Medicine: Result - Labs CBC & Chem 7: 07/08/17 03:38 07/08/17 03:38 Labs: Short CBC 07/08/17 Range/Units 03:38 WBC 5.3 (4.3-11.1) K/mcL Hgb 9.9 L (12.9-16.9) g/dL Hct 32.0 L (37.5-50.1) % Plt Count 276 (140-400) K/mcL Neutrophils # 3.6 (1.6-8.9) K/mcL BMP 07/08/17 03:38 Sodium 132 L Potassium 4.2 Chloride 102 Carbon Dioxide 25 BUN 13 Creatinine 1.04 Glucose 186 H Calcium 9.5 - ABG Interpretation ABG results: PT/INR, D-dimer PT 12.3 Seconds (9.4-12.1) H 07/07/17 12:32
[2017-07-09 05:43] LABS: Basophils % 0.3 %; Eosinophils # 0.1 K/mcL (0.0-0.6); Eosinophils % 1.1 %; Hematocrit 32.5 % (37.5-50.1); Hemoglobin 10.5 g/dL (12.9-16.9); Immature Granulocytes % 1.2 % (0-4); Mean Corpuscular HGB Conc 32.3 g/dL (31.6-35.5); Mean Corpuscular Hemoglobin 27.4 pg (28.0-33.3); Mean Corpuscular Volume 84.9 fL (83.0-100.0); Mean Platelet Volume 10.5 fL (9.4-12.4); Monocytes # 0.7 K/mcL (0.0-1.3); Monocytes % 9.6 %; Neutrophils # 5.7 K/mcL (1.6-8.9); Platelet Count 266 K/mcL (140-400); Red Blood Count 3.83 M/mcL (4.19-5.50); Red Cell Distribution Width 16.7 % (11.5-14.5); Segmented Neutrophils % 74.8 %
[2017-07-09 06:03] LABS: BUN/Creatinine Ratio 14 (6-26); Blood Urea Nitrogen 13 mg/dL (8-23); Calcium 9.5 mg/dL (8.6-10.3); Carbon Dioxide 22 mEq/L (23-29); Chloride 102 mEq/L (98-107); Glucose 178 mg/dL (70-105); Osmolality,Calculated 281 (280-300); Potassium 4.7 mEq/L (3.5-5.1); Sodium 133 mEq/L (136-145); eGFR For African Americans > 60 (> 60); eGFR For Non-African Americans > 60 (> 60)
--- NOTE | 2017-07-09 07:30 | Internal Med Progress Note ---
<Elijah Maxwell - Last Filed: 07/09/17 13:45> Date of Encounter: 07/09/17 Time of Encounter: 09:15 - Assessment and plan (1) Subdural hematoma Current Visit: Yes Status: Chronic Assessment and plan: Patient w/ recent subdural hematoma -CT of the head shows acute and chronic components; Minimal increase in left to right shift -Patient was advised to be transferred to [facility] for higher level of care; patient refused transfer -Risks of being treated in a facility not equipped to take care of neurosurgical patients was explained -Patient understands risks; still does not want to be transferred -Remains full code -Monitor neuro function closely; continue telemetry -High risk for complications (2) Weakness Current Visit: Yes Status: Acute Assessment and plan: Patient presented with generalized weakness -Most likely worsened from recent subdural hematoma -Will consult physical therapy for evaluation -Patient will likely need rehabilitation after hospitalization (3) Diabetes Current Visit: Yes Status: Chronic Assessment and plan: -Monitor blood glucose -Sliding scale insulin -Diabetic diet Qualifiers: Diabetes mellitus type: type 2 Diabetes mellitus retirement insulin use: without rn long term care use Diabetes mellitus complication status: without complication Qualified Code(s): E11.9 - Type 2 diabetes mellitus without complications (4) HTN (hypertension) Current Visit: Yes Status: Chronic Assessment and plan: -Hydralazine 10 mg IV every 6 when necessary -Lopressor 25 mg by mouth twice a day -Verapamil ER 360 mg by mouth daily Qualifiers: Hypertension type: essential hypertension Qualified Code(s): I10 - Essential (primary) hypertension (5) DVT prophylaxis Current Visit: Yes Status: Acute Assessment and plan: -EPCD - Subjective Interval history: Patient was seen and examined at bedside this morning. Appears confused today; unable to speak in coherent sentences Per nursing staff, patient was talking about "being in a bomb senior living" today. He was able to comprehend and speak in full sentences yesterday. Will order CT of the head stat. - Constitutional Vitals: Temp Pulse Resp BP Pulse Ox 98.2 F 82 15 186/95 97 07/09/17 07:01 07/09/17 07:01 07/09/17 07:01 07/09/17 07:01 07/09/17 07:01 General appearance: Present: A&O X 0, pleasant, no acute distress. Absent: answers questions appropriately - Head Head exam: Present: atraumatic, normocephalic - Eye Eye exam: Present: PERRL, conjuntiva pink, sclera anicteric Pupils: Present: PERRL - Neck Neck exam general surgery: Present: supple, trachea midline. Absent: lymphadenopathy - Respiratory Respiratory exam: Present: CTAB. Absent: accessory muscle use, rales, rhonchi, wheezes - Cardiovascular Cardiovascular exam: Present: RRR, +S1, +S2. Absent: diastolic murmur, gallop, rubs, systolic murmur - Extremities Exam Extremities exam: Present: warm, radial pulses palpable and symmetrical. Absent : calf tenderness, cyanotic, pedal edema - Neurological Exam Neurological exam: Present: speech deficit. Absent: pronater drift, facial droop - Skin Skin exam: Present: dry, intact Internal Medicine: Result - Labs CBC & Chem 7: 07/09/17 05:29 07/09/17 05:29 Labs: Short CBC 07/09/17 Range/Units 05:29 WBC 7.6 (4.3-11.1) K/mcL Hgb 10.5 L (12.9-16.9) g/dL Hct 32.5 L (37.5-50.1) % Plt Count 266 (140-400) K/mcL Neutrophils # 5.7 (1.6-8.9) K/mcL BMP 07/09/17 05:29 Sodium 133 L Potassium 4.7 Chloride 102 Carbon Dioxide 22 L BUN 13 Creatinine 0.91 Glucose 178 H Calcium 9.5 - ABG Interpretation ABG results: PT/INR, D-dimer PT 12.3 Seconds (9.4-12.1) H 07/07/17 12:32 - VTE Documentation of Mechanical Device: Intermittent pneumatic compression device Consult Discharge Plan - Plan Referrals: Unassigned,Provider [Non-Partnered Physician] - <Jose Roberto Toro H - Last Filed: 07/09/17 16:34> Date of Encounter: 07/09/17 - Constitutional Vitals: Temp Pulse Resp BP Pulse Ox 98.2 F 106 15 149/85 96 07/09/17 15:52 07/09/17 15:52 07/09/17 15:52 07/09/17 15:52 07/09/17 15:52 Internal Medicine: Result - Labs CBC & Chem 7: 07/09/17 05:29 07/09/17 05:29 Labs: Short CBC 07/09/17 Range/Units 05:29 WBC 7.6 (4.3-11.1) K/mcL Hgb 10.5 L (12.9-16.9) g/dL Hct 32.5 L (37.5-50.1) % Plt Count 266 (140-400) K/mcL Neutrophils # 5.7 (1.6-8.9) K/mcL BMP 07/09/17 05:29 Sodium 133 L Potassium 4.7 Chloride 102 Carbon Dioxide 22 L BUN 13 Creatinine 0.91 Glucose 178 H Calcium 9.5 - ABG Interpretation ABG results: PT/INR, D-dimer PT 12.3 Seconds (9.4-12.1) H 07/07/17 12:32 - Impressions Impressions Head CT 07/09/17 13:43 IMPRESSION: 1. Stable left subdural hematoma now measuring 11 mm in thickness. No acute hemorrhage identified 2. Midline shift to the right is essentially unchanged measuring 3 mm today D/ / Jamar Jaquez MD / Jamar Jaquez MD Interpreting Provider: Jamar Jaquez MD - Attending Attestation Discussed the case with the patient's , he is not able to make any decisions due to severe confusion. She agrees to transfer the patient to [facility] I examined this patient and my medical decision-making was reviewed with the Resident Physician. I agree with the documented findings, disposition and treatment plan as described except to the extent set forth below.
--- NOTE | 2017-07-09 07:32 | Electrocardiograph Report ---
[address] [id number] Test Date: 2017-07-07 Pat Name: Adan Dobbins Department: 102 Room: 2NE21 Gender: M [employer] Clerk: Msc : [id number] Requested By: Bear Oquendo Order Number: [id number] Reading MD: Mark Flood MD Measurements Intervals [place] Rate: 105 P: PA: 0 QRS: -50 QRSD: 137 T: 7 QT: 363 QTc: 424 Interpretive Statements ATRIAL FIBRILLATION WITH RAPID VENTRICULAR RESPONSE RIGHT BUNDLE BRANCH BLOCK LEFT ANTERIOR FASCICULAR BLOCK Electronically Signed On 07-09-2017 7:30:29 EDT by Mark Flood MD
[2017-07-09] MEDS: Verapamil ER (24 HR) 180 MG TABLET.ER PO SCH (07:53)
[2017-07-09] MEDS: Sennosides/Docusate Sodium TABLET PO SCH (07:54)
[2017-07-09] MEDS: Iron Polysaccharide Complex 150 MG CAPSULE PO SCH (07:54)
[2017-07-09] MEDS: Insulin LISPRO 300 UNITS/3 ML VIAL SQ SCH ×3 (07:54→16:44)
[2017-07-09] MEDS: Multivit/Ca/Min/Fe/FA 1 TAB TABLET PO SCH (07:54)
[2017-07-09] MEDS: Famotidine 20 MG TABLET PO SCH ×2 (07:54→16:43)
[2017-07-09] MEDS: Finasteride 5 MG TABLET PO SCH (07:54)
[2017-07-09 15:54] VITALS: BP 149/85
--- NOTE | 2017-07-09 16:09 | Discharge Summary ---
<Elijah Maxwell - Last Filed: 07/09/17 16:16> Orders not resulted at time of discharge: Pending orders 07/10/17 04:00 Basic Metabolic Panel AM 0400 Complete Blood Count [HEME] AM 0400 Date of Encounter: 07/09/17 Time of Encounter: 16:08 - Discharge Diagnosis (1) Subdural hematoma Priority: Primary Status: Chronic (2) Weakness Priority: Secondary Status: Acute (3) Diabetes Priority: Secondary Status: Chronic Qualifiers: Diabetes mellitus type: type 2 Diabetes mellitus terminal gauger insulin use: without terminal gauger use Diabetes mellitus complication status: without complication Qualified Code(s): E11.9 - Type 2 diabetes mellitus without complications (4) HTN (hypertension) Priority: Secondary Status: Chronic Qualifiers: Hypertension type: essential hypertension Qualified Code(s): I10 - Essential (primary) hypertension (5) DVT prophylaxis Priority: Secondary Status: Acute Hospital course: Mr. Dobbins is an 86-year-old gentleman who presented to [facility] with the chief complaint of generalized weakness. Patient has been following up with neurosurgery at [facility] for subdural hematoma and was told 2 days prior to admission that it was stable without any change in size. Patient continued to feel weak at home; currently lives at home with his . Patient is a poor historian; reportedly has been recently incontinent. CT scan of the head was obtained; demonstrated the following: Acute on chronic components; minimal increased in left to right shift. Patient was initially advised to be transferred to [facility] for higher level of care, but he refused transfer. The risks of being treated a facility not properly equipped to take care of neurosurgical patients was explained to him, but he still refused. While in the hospital, patients condition was relatively stable leading up to 07/09. Patient does have a known history of hypertension; during his stay in the hospital he was treated with verapamil, Lopressor, and hydralazine. On the morning of 07/09/2017, patient began to become confused. Patient was unable to speak in complete sentences, and reported that [place] was [place]. No confusion the previous day; patient was alert and oriented and was able to speak logically in complete sentences. A repeat CT of the head was ordered; demonstrated the following: Stable left subdural hematoma now measuring 11 mm in thickness. No acute hemorrhage identified. Midline shift to the right is essentially unchanged measuring 3 mm. patient was accompanied by at bedside; agreed to allow patient to be transferred to [facility] for higher level of care. Acceptance pending; patient may be transferred once [facility] accepts. - Time Spent with Patient Total time spent providing and/or coordinating discharge services: Greater than 30 minutes (42 minutes) - Discharge Medications Home Medications: Aspirin 325 mg PO DAILY 11/25/14 [History] Glimepiride [Amaryl] 4 mg PO BID 11/25/14 [History] Multivitamin [Multivitamins] 1 tab PO DAILY 11/25/14 [History] Vitamin E 400 unit PO DAILY 11/25/14 [History] Verapamil ER (24 HR) [Calan SR] 360 mg PO DAILY 03/01/15 [History] Tamsulosin [Flomax] 0.4 mg PO DAILY 02/29/16 [History] Calcium/D3/Mag Ox/Semi Conductor Assembler/Bhaskar/Zn [Caltrate+D3 Plus Mineral Minis] 1 tab PO BID [History] HYDROcodone/Acet 5/325 mg [Avery 5-325 mg] 1 tab PO Q6H PRN #60 tab 04/23/17 [Rx ] Pioglitazone [Actos] 45 mg PO DAILY 05/06/17 [History] Metformin HCl [Metformin HCl ER] 1,000 mg PO BID 05/07/17 [History] Venlafaxine [Effexor] 37.5 mg PO BID 05/07/17 [History] Iron Polysaccharide Complex [Ferrex 150] 150 mg PO DAILY 06/14/17 [History] Metoprolol [Lopressor] 25 mg PO BID 06/14/17 [History] Ranitidine HCl [Zantac] 150 mg PO BID #180 tablet 06/20/17 [Rx] Dutasteride [Dutasteride] 0.5 mg PO DAILY 07/07/17 [History] Sennosides/Docusate Sodium [Senna Plus] 2 tab PO BID 07/07/17 [History] Allergies/Adverse Reactions: 3 Allergy/AdvReac Type Severity Reaction Status Date / Time No Known Allergies Allergy Verified 07/07/17 12:31 Date of admission: 07/07/17 14:55 Primary care physician: Flaquito Cm, Consults: 07/08/17 11:10 Consult to Occupational Therapy [CONS] Routine Comment: Evaluate, develop and implement POC Reason for Consult: Subdural hematoma, LE weakness Does patient have active BEDREST order?: Yes Is patient medically & hemodynamically stable?: Yes Consult to Physical Therapy [CONS] Routine Comment: Evaluate, develop and implement POC Reason for Consult: Subdural hematoma, LE weakness Does patient have active BEDREST order?: Yes Is patient medically & hemodynamically stable?: Yes 07/08/17 11:50 Consult to Liquefaction Supervisor [CONS] Routine Reason for SW Consult: Will need rehab at discharge; PT/OT consulted Discharging clinician: Elijah Maxwell Anticipated date of discharge: 07/09/17 - Constitutional Vitals: Temp Pulse Resp BP Pulse Ox 98.2 F 106 15 149/85 96 07/09/17 15:52 07/09/17 15:52 07/09/17 15:52 07/09/17 15:52 07/09/17 15:52 General appearance: Present: A&O X 0, pleasant, no acute distress. Absent: answers questions appropriately - Head Head exam: Present: atraumatic, normocephalic - Eye Eye exam: Present: PERRL, conjuntiva pink, sclera anicteric Pupils: Present: PERRL - Neck Neck exam general surgery: Present: supple, trachea midline. Absent: lymphadenopathy - Respiratory Respiratory exam: Present: CTAB. Absent: accessory muscle use, rales, rhonchi, wheezes - Cardiovascular Cardiovascular exam: Present: RRR, +S1, +S2. Absent: diastolic murmur, gallop, rubs, systolic murmur - Extremities Exam Extremities exam: Present: warm, radial pulses palpable and symmetrical. Absent : calf tenderness, cyanotic, pedal edema - Neurological Exam Neurological exam: Absent: pronater drift, facial droop, speech deficit - Skin Skin exam: Present: dry, intact - Patient Status Disposition: Transfer Critical Access Hosp Condition: Fair Overall status at discharge: patient is not back to baseline - Discharge Instructions Follow Up With: Unassigned,Provider [Non-Partnered Physician] - - Diet and Activity Activity: increase activity as tolerated Diet: advance to your usual diet - VTE Documentation of Mechanical Device: Intermittent pneumatic compression device <Jose Roberto Toro H - Last Filed: 07/09/17 16:33> Orders not resulted at time of discharge: Pending orders 07/10/17 04:00 Basic Metabolic Panel AM 0400 Complete Blood Count [HEME] AM 0400 Date of Encounter: 07/09/17 Hospital course: Mr. Dobbins is a 86 year old male - Time Spent with Patient Total time spent providing and/or coordinating discharge services: Date of admission: 07/07/17 14:55 Primary care physician: Flaquito Cm, Consults: 07/08/17 11:10 Consult to Occupational Therapy [CONS] Routine Comment: Evaluate, develop and implement POC Reason for Consult: Subdural hematoma, LE weakness Does patient have active BEDREST order?: Yes Is patient medically & hemodynamically stable?: Yes Consult to Physical Therapy [CONS] Routine Comment: Evaluate, develop and implement POC Reason for Consult: Subdural hematoma, LE weakness Does patient have active BEDREST order?: Yes Is patient medically & hemodynamically stable?: Yes 07/08/17 11:50 Consult to Liquefaction Supervisor [CONS] Routine Reason for SW Consult: Will need rehab at discharge; PT/OT consulted - Constitutional Vitals: Temp Pulse Resp BP Pulse Ox 98.2 F 106 15 149/85 96 07/09/17 15:52 07/09/17 15:52 07/09/17 15:52 07/09/17 15:52 07/09/17 15:52 - Attending Attestation Delirium likely chronic complicated by left subdural hematoma Transfer to ICU Time spent 40 minutes I examined this patient and my medical decision-making was reviewed with the Resident Physician. I agree with the documented findings, disposition and treatment plan as described except to the extent set forth below.
== END 2017-07-09 19:15 | disposition critical access hospital (66) ==
LOC: EMEROO 12:28 → 3BNU 12:28 → 2NENU 15:37
PROVIDERS: ADMIT Internal Medicine; ATTEND Internal Medicine